=== PATIENT | female | born 1965 | race Caucasian/White ===

== ENCOUNTER → 2024-02-14 07:22 | Outpatient (REF) | payer BC, SELFPAY | LOC: DHCBS MAIN 07:22 | PROVIDERS: ATTENDING PHYSICIAN Nuclear Medicine Nuclear Cardiology; FAMILY PHYSICIAN Family Medicine | DX: I48.0 Paroxysmal atrial fibrillation (principal); I50.32 Chronic diastolic (congestive) heart failure; I42.9 Cardiomyopathy, unspecified | CPT/HCPCS: 93306 ==

== ENCOUNTER 2024-04-09 19:31 | Inpatient (IN) | payer BC, SELFPAY ==
[2024-04-09] VITALS (10 sets, daily range): BP systolic 118–140; BP diastolic 64–96; BMI 29.1; BMI 28.5
--- NOTE | 2024-04-09 13:01 | ED.GENMED ---
History of Present Illness
General
Chief Complaint: Breathing Problem
Time Seen by Provider: 04/09/24 13:01
Travel History
Have you had any contact with someone who has COVID-19?: No
Do you have any symptoms of coronavirus? Fever > 100 degrees, chills, cough, shortness of breath, sore throat, loss of taste or smell, muscle aches, or headache?: No
History of Present Illness
History of Present Illness:
HPI: Patient presents with shortness of breath of the last couple of weeks. She thinks she was been suffering from allergies recently as well. She went to PMD who noticed room air sats in the 80% and sent her here for further evaluation. The
current nurse who is seeing her at bedside was told from triage that her sats were in the '80%'s' however this is not clearly documented. She was as low as 92% just prior to administration of oxygen. She has no chest pain. There is been no fevers.
EXAM:
GENERAL: Well appearing in no distress
HEENT: Moist oral mucosa
CARDIOVASCULAR: No murmurs, normal heart rate, regular rhythm, No chest wall tenderness
PULMONARY: The patient does have an increased work of breathing associated with wheeze and rhonchi, there is some mild conversational dyspnea
ABDOMEN: Soft with no peritoneal signs, no tenderness
NEUROLOGIC: Excellent strength all extremities, no coordination deficits
PSYCHIATRIC: Appropriate mental status, normal insight and judgement
EXTREMITIES: Nontender, no edema, moves all extremities equally
SKIN: No rash, no lesions
TIME OF INITIAL ENCOUNTER: 1:20 PM
NUMBER AND COMPLEXITY OF PROBLEMS ADDRESSED AT THE ENCOUNTER
� Chronic conditions affecting care: COPD, former smoker, A-fib, diabetes, history of alcohol abuse, anxiety/depression
� Acute Exacerbation and/or Progression of Chronic Illness: This is an acute problem
� Differential Diagnosis includes: COPD exacerbation, doubt heart failure, pneumonia, reactive airway disease related to viral syndrome or allergens, bronchitis
AMOUNT AND/OR COMPLEXITY OF DATA TO BE REVIEWED AND ANALYZED
� I performed an independent evaluation of and my interpretation is:
EKG: Sinus, nonspecific ST abnormality, PVCs
CT:
X-rays: Chest x-ray clear
Laboratory Studies: White count 13.4, chemistries, troponin normal, BNP borderline at 844
Other:
� Review of other/old records: I reviewed records, the patient has had visits here related to atrial fibrillation in the past and was admitted for COPD exacerbation approximately 16 months ago, it was documented the past that she
did have a mildly reduced ejection fraction in the past.
� Clinical information was obtained by an independent historian: I spoke to family member at bedside who indicates that she had a similar episode just over a year ago.
� Prescriptions/Medications Considered but not given:
� Further testing considered but not performed:
RISK OF COMPLICATIONS AND/OR MORBIDITY OR MORTALITY OF PATIENT MANAGEMENT
� Social determinants of health affecting care:
� Discussion with other providers: Hospitalist for admission at 3 PM
� Escalation of care including admission/observation vs risk of discharge considered: Allergens/pollen may be a precipitating factor�I suggest that she also follows up with an hand binder stripper at some point. We have placed her on nebs
and steroids with some improvement. The wheeze has improved however decreased breath sounds persist. Suspect acute exacerbation of COPD with borderline hypoxia�planning admission to the hospital
Past History
Past History
ED Past Medical History: COPD, GERD, HTN, Hypercholesterolemia, NIDDM, Psychiatric (Anxiety, Depression) and Other (Sciatica)
ED Past Surgical History: Bowel resection, , Orthopedic (Left and right hip replacements) and Other (Deviated septum)
Social History
Tobacco: Smoker
Alcohol: Occasional
Personal:
Living: with family
Family History
Family History: Negative Early CAD
Phy Exam
Physical Exam
Physical Exam:
See HPI
Scores
Heart Failure Risk
Heart Failure Risk Score: Not Applicable
Course
Orders/Labs/Results
Orders:
Orders
04/09/24 12:33
Electrocardiogram (*1) Urgent
Reason for Study: Shortness of Breath
EKG- Treatment ONCE
CR Chest - 2 Views Urgent
Comment:
Reason For Exam: cough
04/09/24 13:25
Add On- LAB Urgent
Tests Added?: bnp
Ipratropium/Albuterol Sulfate [Duoneb] 3 ml INH R NOW ONE
04/09/24 13:26
Complete Blood Count/With Diff Urgent
Comprehensive Metabolic Panel Urgent
NT-proBNP Urgent
Troponin I Urgent
Ipratropium/Albuterol Sulfate [Duoneb] 3 ml INH R NOW ONE
MethylPREDNISolone PF [Solu-Medrol Pf] 125 mg IV NOW STA
Abnormal Lab Results
04/09/24
13:26
WBC 13.4 H 10^3/uL
(4.8-10.8)
MCH 31.8 H pg
(27.0-31.0)
Plt Count 110 L 10^3/uL
(130-400)
MPV 11.9 H fL
(7.4-10.4)
Abs Immat Gran (auto) 0.1 H 10^3/uL
(0-0.05)
Absolute Neuts (auto) 11.1 H 10^3/uL
(1.4-6.5)
Absolute Monos (auto) 0.7 H 10^3/uL
(0.1-0.6)
Immature Gran % 0.8 H %
(0-0.5)
Neutrophils % 83.3 H %
(42.2-75.2)
Lymphocytes % 9.3 L %
(20.5-51.1)
Creatinine 0.5 L mg/dL
(0.6-1.0)
Glucose 194 H mg/dl
(70-99)
04/09/24 13:26
04/09/24 13:26
Vital Signs
Initial and Last Documented VS:
Initial Vital Signs
Temp Pulse Resp BP Pulse Ox
97.7 F 107 22 134/86 96
04/09/24 12:29 04/09/24 12:29 04/09/24 12:29 04/09/24 12:29 04/09/24 12:29
Last Documented Vital Signs
Temp Pulse Resp BP Pulse Ox
97.7 F 97 25 125/96 96
04/09/24 12:29 04/09/24 13:15 04/09/24 13:15 04/09/24 13:06 04/09/24 13:27
*Critical Care Note
Total Time (30-74mins, 75-104mins- exclusive of procedures): Not Applicable
ED Attending Note
-
Portions of this chart may have been created with voice recognition software.� Occasional wrong word or��sound alike� substitutions may have occurred due to the inherent limitations of voice recognition software.
Discharge Plan
Departure
Patient Disposition: Home (Routine Discharge)
Date of Disposition: 04/09/24
Time of Disposition: 15:02
Patient with high blood pressure during this ER visit?: Yes
Discharge Problem:
Acute exacerbation of chronic obstructive pulmonary disease
Prescriptions:
No Action
roflumilast [Daliresp] 500 MCG tablet
500 mcg PO DAILY Qty: 0 0RF
sertraline 100 MG tablet
100 mg PO DAILY
metformin 500 MG tablet
1,000 mg PO BID
diltiazem HCl 240 mg Capsule,Extended Release 24hr
240 mg PO BID Qty: 60 0RF
Eliquis 5 mg Tablet
5 mg PO BID Qty: 60 0RF
Anoro Ellipta 62.5-25 mcg/actuation Blister With Device
1 inh INHALATION R DAILY
Patient Comments:
04/09/2024, per pt., she is finishing up her Anoro before starting her Trelegy.
methimazole 5 mg Tablet
2.5 mg PO DAILY
atorvastatin 40 mg Tablet
40 mg PO DAILY
nicotine 14 mg/24 hr Patch 24 Hour
1 patch TRANSDERMAL DAILY
Patient Comments:
04/09/2024, pt. just started using these patches today; pt. has patch on her left arm.
levalbuterol tartrate 45 mcg/actuation Hfa Aerosol Inhaler
2 puff INHALATION R Q4HPRN PRN (Reason: sob)
pregabalin 150 mg Capsule
150 mg PO BID
Trelegy Ellipta 100-62.5-25 mcg Blister With Device
1 inh INHALATION R DAILYPRN PRN (Reason: sob)
Patient Comments:
04/09/2024, per pt., she received samples of this med. from her PCP and she took some roughly a week ago; pt. is finishing her Anoro before starting this med. routinely.
levalbuterol HCl 0.63 mg/3 mL solution for nebulization
0.63 mg inhalation R TIDPRN PRN (Reason: WHEEZING/SOB)
Referrals:
Hemant David, [Family Provider] -
Interventions
Interventions:
*Risk Screen - Suicide Last Done: 04/09/24 13:11
*General Assessment Last Done: 04/09/24 13:11
*Neglect/Abuse Screening Last Done: 04/09/24 13:11
ED- Fall Risk Assessment Last Done: 04/09/24 13:11
*ED COVID-19 Vaccine History Last Done: 04/09/24 12:29
ED- Cardiac Assessment Last Done: 04/09/24 13:11
ED- Pulmonary Assessment Last Done: 04/09/24 13:27
Discharge Date and Time
Print Language: SUDANESE
[2024-04-09] MEDS: DUONEB 3 ML INH ×2 (13:31)
[2024-04-09] MEDS: SOLU-MEDROL PF 125 MG IV (13:31)
[2024-04-09 13:36] LABS: % Basophils 0.3 % (0-2); % Eosinophils 0.9 % (0-6); % Immature Granulocytes 0.8 % (0-0.5); % Lymphocytes 9.3 % (20.5-51.1); % Monocytes 5.4 % (1.7-9.3); % Neutrophils 83.3 % (42.2-75.2); Absolute Eosinophils 0.1 10^3/uL (0-0.7); Absolute Immature Granulocytes 0.1 10^3/uL (0-0.05); Absolute Lymphocytes 1.2 10^3/uL (1.2-3.4); Absolute Monocytes 0.7 10^3/uL (0.1-0.6); Absolute Neutrophils 11.1 10^3/uL (1.4-6.5); Hematocrit 39.8 % (37.0-47.0); Hemoglobin 13.9 g/dL (12.0-16.0); Mean Corp Hgb Conc. 34.9 g/dL (33.0-37.0); Mean Corpuscular Hgb 31.8 pg (27.0-31.0); Mean Corpuscular Volume 91.1 fL (81.0-99.0); Mean Platelet Volume 11.9 fL (7.4-10.4); Nucleated Red Blood Cells % 0 %; Platelet Count 110 10^3/uL (130-400); Red Blood Cell Count 4.37 10^6/uL (4.20-5.40); Red Cell Dist. Width 12.6 % (11.5-14.5); White Blood Cell Count 13.4 10^3/uL (4.8-10.8)
[2024-04-09 13:59] LABS: ALT (SGPT) 10 U/L (0-35); AST (SGOT) 14 U/L (14-36); Albumin 4.2 g/dl (3.5-5.0); Alkaline Phosphatase 110 U/L (38-126); Blood Urea Nitrogen 10 mg/dl (7-17); Calcium 9.1 mg/dl (8.4-10.2); Carbon Dioxide 28 mmol/L (22-30); Chloride 98 mmol/L (98-107); Estimated Creatinine Clearance 100 ml/min; Glucose 194 mg/dl (70-99); Potassium 3.6 mmol/L (3.5-5.1); Sodium 136 mmol/L (135-145); Total Protein 7.3 g/dl (6.3-8.2); eGFR > 60.00
[2024-04-09 14:10] LABS: NT-proBNP 844 pg/ml; Troponin I < 0.012 ng/ml
--- NOTE | 2024-04-09 15:09 | HPS.HSE ---
Family Physician
-
Family Physician: Hemant David
Chief Complaint
-
SOB
History of Present Illness
58F hx atrial fibrillation s/p ablation HTN HLD NIDDM COPD Hyperthyroidism HFmrEF here for progressive sob for past weeks with associate wheezing. Referred by primary for evaluation ED due to desaturation 80s room air. Denies fever chills nausea
vomiting diarrhea constipation. No acute abn's noted on CXR. Saturating well on 2L afebrile bp stable. Labs relatively unremarkable, mild leukocytosis noted suspected stress reactive.
Medical History
Past Medical History
Past Medical History: Reports Other (as above)
Past Surgical History: Reports Other (as above)
Social History
Tobacco: Other (attempting to quit on nicotine patches)
Alcohol: Occasional
Drug: None
Personal:
Living: With Family
Family History
Family History: Not pertinent (reviewed)
Allergies / Home Medications
Allergies reflects when Allergies were last updated in [facility].
Home Medications with original date entered in [facility]
Allergy/Medication List:
Allergies
Allergy/AdvReac Type Severity Reaction Status Date / Time
No Known Allergies Allergy Verified 04/09/24 12:32
Home Medications
sertraline 100 mg tablet 100 mg PO DAILY Depression 01/30/18
metformin 500 mg tablet 1,000 mg PO BID Diabetes 12/30/21
umeclidinium 62.5 mcg-vilanterol 25 mcg/actuation powdr for inhalation (Anoro Ellipta) 1 inh inhalation R DAILY Lung/Breathing Issues 02/24/23
methimazole 5 mg tablet 2.5 mg PO DAILY hyperthyroidism 03/27/23
apixaban 5 mg tablet (Eliquis) 5 mg PO BID Blood Clot Prevention/Tx 04/09/24
atorvastatin 40 mg tablet 40 mg PO DAILY High Cholesterol 04/09/24
diltiazem HCl 240 mg capsule,extended release 24 hr 240 mg PO BID Blood Pressure 04/09/24
fluticasone fur. 100 mcg-umeclid 62.5 mcg-vilant 25 mcg inhalat.powder (Trelegy Ellipta) 1 inh inhalation R DAILYPRN PRN shortness of breath 04/09/24
levalbuterol HCl 0.63 mg/3 mL solution for nebulization 0.63 mg inhalation R TIDPRN PRN wheezing/SOB 04/09/24
levalbuterol tartrate 45 mcg/actuation aerosol inhaler 2 puff inhalation R Q4HPRN PRN shortness of breath 04/09/24
nicotine 14 mg/24 hr daily transdermal patch 1 patch transdermal DAILY smoking cessation 04/09/24
pregabalin 150 mg capsule 150 mg PO BID Pain 04/09/24
roflumilast 500 mcg tablet (Daliresp) 500 mcg PO DAILY Lung/Breathing Issues 04/09/24
Review of Systems
-
A 12 point ROS was completed and negative except as noted: Yes
Constitutional: Reports Sleep Disturbance (as below)
Physical Exam
Vital Signs
Vital Signs
Temp Pulse Resp BP Pulse Ox
97.7 F 97 25 125/96 96
04/09/24 12:29 04/09/24 13:15 04/09/24 13:15 04/09/24 13:06 04/09/24 13:27
Physical Exam
General: Other (as below)
Laboratory Results
-
04/09/24 13:26
04/09/24 13:26
Laboratory Results
Total Bilirubin 1.0 mg/dl (0.2-1.3) 04/09/24 13:26
AST 14 U/L (14-36) 04/09/24 13:26
ALT 10 U/L (0-35) 04/09/24 13:26
Alkaline Phosphatase 110 U/L (38-126) 04/09/24 13:26
Troponin I < 0.012 ng/ml 04/09/24 13:26
Impression/Plan
-
ROS
General: Denies fever chills night sweats unexpected weight loss
Neuro: Denies seizure shaking loss of consciousness dizziness vertigo
Psych: denies depression hallucinations confusion manic episodes
Endocrine: Denies polyuria polydipsia polyphagia heat/cold intolerance
HEENT: Denies blindness visual disturbances epistaxis
Pulmonary: reports sob dyspnea on exertion wheezing
Cardiovascular: denies chest pain palpitations leg swelling
Hematology: denies signs symptoms of anemia easy bruising/bleeding
Gastrointestinal: denies nausea vomiting diarrhea constipation hematemesis hematochezia melena
Genito-Urinary: denies retention incontinence dysuria
Musculoskeletal: denies joint pain weakness
Dermatology: denies rash laceration bruising
Physical Exam
General: No pallor, cyanosis, or jaundice.
HEENT: Throat clear. PERRLA Normocephalic atraumatic
NECK: Supple. No JVD Carotid Bruits
RESPIRATORY: Diffuse Expiratory wheeze
CVS: S1, S2 normal. RRR. No murmur, rub or gallop.
ABDOMEN: Soft, non-tender. No distension. BS+/normal.
EXTREMITIES: No peripheral cyanosis or edema.
PLUMBER MAINTENANCE: AOx3. No focal deficits.
IMPRESSION:
58F hx atrial fibrillation s/p ablation HTN HLD NIDDM COPD Hyperthyroidism HFmrEF here for progressive sob for past weeks with associate wheezing. Referred by primary for evaluation ED due to desaturation 80s room air. Denies fever chills nausea
vomiting diarrhea constipation. No acute abn's noted on CXR. Saturating well on 2L afebrile bp stable. Labs relatively unremarkable, mild leukocytosis noted suspect stress reactive.
PLAN:
#COPD exacerbation
Tele Admit
steroids Bronchodilators
Wean O2 supplementation as tolerated
PT/OT eval
#Hx atrial fibrillation s/p ablation
#HTN
cont home Eliquis
cont home Cardizem with Holding parameters
#HLD
cont stating
#NIDDM
Medium Dose Sliding scale
Follow up A1c
cont home Metformin
Carb controlled Diet
#Neuropathy
cont home Pregabalin
#Anxiety/Depression
cont home Sertraline
DVT ppx Eliquis
GI ppx Protonix
Meds reconciled and resumed as appropriate
Full Code
I spent a total of 80 minutes with the patient or on the floor. More than 50% of this time involved counseling and coordination of care.
[2024-04-09 21:13] LABS: Glucose - Point of Care 482 mg/dl (70-99)
[2024-04-09] MEDS: CARDIZEM CD 240 MG PO (21:14)
[2024-04-09] MEDS: LYRICA 150 MG PO (21:14)
[2024-04-09] MEDS: ELIQUIS 5 MG PO (21:14)
[2024-04-09] MEDS: XOPENEX 0.63 MG INHALANT SOLUTION INH (21:26)
--- NOTE | 2024-04-09 21:32 | PTCARENOTE ---
Received pt from ED via stretcher. AAOx3, VSS, no complaints of pain at this time. Oriented pt to room, call brooke within reach.
[2024-04-09 21:50] LABS: Glucose 484 mg/dl (70-99)
[2024-04-09] MEDS: GLUCOPHAGE 1000 MG PO (22:26)
[2024-04-09] MEDS: ROBITUSSIN AC 5 ML PO (22:26)
[2024-04-09] MEDS: NOVOLOG FLEXPEN 10 UNITS SC (23:17)
[2024-04-10] VITALS (8 sets, daily range): BP systolic 101–146; BP diastolic 54–78; PULSE 83; O2SAT 92; BMI 28.2
[2024-04-10 01:25] LABS: Glucose - Point of Care 451 mg/dl (70-99)
[2024-04-10 01:59] LABS: Glucose 447 mg/dl (70-99)
[2024-04-10] MEDS: NOVOLOG FLEXPEN 12 UNITS SC (02:13)
[2024-04-10 03:22] LABS: COVID-19 Antigen Negative (Negative)
[2024-04-10 04:45] LABS: Glucose - Point of Care 324 mg/dl (70-99)
[2024-04-10 07:17] LABS: Glucose - Point of Care 309 mg/dl (70-99)
--- NOTE | 2024-04-10 07:31 | W.PN.HOSP.TC ---
Today's Communication/Plan
-
steroid taper
bronchodilators
wean O2 supplementation as tolerated, home oxygen assessment in AM
Glycemic Control
Cont home methimazole
Assessment / Plan
Assessment / Plan
Physical Exam
General: No pallor, cyanosis, or jaundice.
HEENT: Throat clear. PERRLA Normocephalic atraumatic
NECK: Supple. No JVD Carotid Bruits
RESPIRATORY: clear to auscultation remains on oxygen supplementation
CVS: S1, S2 normal. RRR. No murmur, rub or gallop.
ABDOMEN: Soft, non-tender. No distension. BS+/normal.
EXTREMITIES: No peripheral cyanosis or edema.
ANALYTICAL RESEARCH PROGRAM MANAGER: AOx3. No focal deficits.
IMPRESSION:
58F hx atrial fibrillation s/p ablation HTN HLD NIDDM COPD Hyperthyroidism HFmrEF here for progressive sob for past weeks with associate wheezing. Referred by primary for evaluation ED due to desaturation 80s room air. Denies fever chills nausea
vomiting diarrhea constipation. No acute abn's noted on CXR. Saturating well on 2L afebrile bp stable. Labs relatively unremarkable, mild leukocytosis noted suspect stress reactive.
PLAN:
#COPD exacerbation
steroids Bronchodilators
Wean O2 supplementation as tolerated
PT/OT eval appreciated likely no skilled needs on discharge
Home O2 assessment in AM
#Hx atrial fibrillation s/p ablation
#HTN
cont home Eliquis
cont home Cardizem with Holding parameters
#HLD
cont statin
#NIDDM
Medium Dose Sliding scale
A1c appreciated 8.9
cont home Metformin
Carb controlled Diet
DM BLIND CLEANER consult appreciated Lantus 20U Novolog 10U AC
medium dose sliding scale
#Neuropathy
cont home Pregabalin
#Anxiety/Depression
cont home Sertraline
#Hyperthyroidism
cont home methimazole
T4 mild elevation noted
TSH suppressed
appears relatively asymptomatic for hyperthyroidism at this time
outpatient follow up with Endocrinology recommended
DVT ppx Eliquis
GI ppx Protonix
Meds reconciled and resumed as appropriate
Full Code
Discussed with patient and her Thomas.
I spent a total of 59 minutes with the patient or on the floor. More than 50% of this time involved counseling and coordination of care.
Anticipated Discharge: 24 - 48 hours
Subjective/Interval History
-
Date of Service: April 10, 2024
Reports improvement in symptoms. Cough persists. Overall feels well though remains oxygen dependent. Patient's Thomas present during evaluation.
Objective Data
-
Labs:
Laboratory Results
04/09/24 04/10/24 04/10/24
21:25 01:33 07:00
WBC Pending
Hgb Pending
Hct Pending
Plt Count Pending
Sodium Pending
Potassium Pending
Chloride Pending
Carbon Dioxide Pending
BUN Pending
Creatinine Pending
Glucose 484 H* 447 H Pending
Calcium Pending
Vital Signs:
Vital Signs
Temp Pulse Resp BP Pulse Ox
97.5 F 82 18 131/74 92
04/10/24 03:21 04/10/24 03:21 04/10/24 03:21 04/10/24 03:21 04/10/24 03:21
I&O
04/09/24 04/10/24 04/11/24
06:59 06:59 06:59
Intake Total 480 / 480
Balance 480 / 480
[2024-04-10] MEDS: SPIRIVA RESPIMAT 2.5 MCG 2 PUFF INH (07:46)
[2024-04-10] MEDS: STRIVERDI RESPIMAT 2 PUFF INH (07:47)
[2024-04-10] MEDS: XOPENEX 0.63 MG INHALANT SOLUTION 0.630000000000000004 MG INH ×3 (07:47→20:08)
[2024-04-10 07:59] LABS: Hematocrit 39.1 % (37.0-47.0); Hemoglobin 13.4 g/dL (12.0-16.0); Mean Corp Hgb Conc. 34.3 g/dL (33.0-37.0); Mean Corpuscular Hgb 31.5 pg (27.0-31.0); Mean Platelet Volume 12.4 fL (7.4-10.4); Platelet Count 103 10^3/uL (130-400); Red Blood Cell Count 4.25 10^6/uL (4.20-5.40); Red Cell Dist. Width 12.6 % (11.5-14.5); White Blood Cell Count 8.9 10^3/uL (4.8-10.8)
[2024-04-10] MEDS: NICODERM TRANSDERMAL 14 MG TRANSDERM (08:09)
[2024-04-10] MEDS: NOVOLOG FLEXPEN-MODERATE RESISTANCE 7 UNITS SC ×2 (08:09→12:08)
[2024-04-10] MEDS: PROTONIX 40 MG PO (08:10)
[2024-04-10] MEDS: TAPAZOLE 2.5 MG PO (08:10)
[2024-04-10] MEDS: ZOLOFT 100 MG PO (08:10)
[2024-04-10] MEDS: ELIQUIS 5 MG PO ×2 (08:10→20:57)
[2024-04-10] MEDS: LYRICA 150 MG PO ×2 (08:10→20:57)
[2024-04-10] MEDS: LIPITOR 40 MG PO (08:10)
[2024-04-10] MEDS: GLUCOPHAGE 1000 MG PO ×2 (08:10→17:09)
[2024-04-10] MEDS: DALIRESP 500 MCG PO (08:10)
[2024-04-10] MEDS: CARDIZEM CD 240 MG PO ×2 (08:11→20:57)
[2024-04-10] MEDS: DECADRON 4 MG IV ×2 (08:11→21:36)
[2024-04-10 08:27] LABS: Blood Urea Nitrogen 25 mg/dl (7-17); Calcium 9.4 mg/dl (8.4-10.2); Carbon Dioxide 25 mmol/L (22-30); Chloride 99 mmol/L (98-107); Estimated Creatinine Clearance 99 ml/min; Glucose 308 mg/dl (70-99); Magnesium 1.8 mg/dl (1.6-2.3); Phosphorus 4.1 mg/dl (2.5-4.5); Potassium 4.7 mmol/L (3.5-5.1); Sodium 138 mmol/L (135-145); eGFR > 60.00
[2024-04-10] MEDS: ROBITUSSIN AC 5 ML PO ×4 (08:27→21:08)
[2024-04-10 08:51] LABS: TSH Reflex To Free T4 < 0.02 uIU/ml (0.47-4.68)
[2024-04-10 09:20] LABS: Free T4 2.41 ng/dl (0.78-2.19)
[2024-04-10 09:22] LABS: Glycohemoglobin (HgbA1c) 8.9 % (4.0-5.6)
--- NOTE | 2024-04-10 09:51 | PTOTSP ---
pt currently requires supervision to no assistance to complete simple ADLs, functional transfers, ambulation. pt currently requires 2LO2; does not wear O2 at baseline. will defer to PT, as pt is capable of completing functional tasks without
intervention. no acute OT needs identified at this time, will sign off.
--- NOTE | 2024-04-10 11:02 | CM ---
CM met with pt bedside
Pt resides in a multi-story townhouse with 3STE
Full flight to second floor full bathroom and bed
Pt notes independence without any ADs
Only DME is a working nebulizer- no longer has ADs in the home
Pt is not on home oxygen at baseline
Has hx with [facility]
PCP- Hemant David
Rx- [facility]
PT/OT following and no needs recommendations
Pt currently on 2L- CM will follow for potential home O2 needs
Discharge Disposition- home, follow for oxygen needs
[2024-04-10 11:54] LABS: Glucose - Point of Care 311 mg/dl (70-99)
[2024-04-10] MEDS: NOVOLOG FLEXPEN 5 UNITS SC (12:08)
--- NOTE | 2024-04-10 13:01 | PN.DE.MGMTRT ---
Insulin Management
- -
04/09/2024 Diabetes Management Consult
Patient admitted 04/09 with SOB, exacerbation COPD. PMH includes COPD, afib/ablation, type 2 diabetes, alcohol abuse, anxiety depression, HTN, GERD, HCL. A1C on admission 8.9%, cr .6, eGFR >60.
Patient is awake alert, and oriented, able to discuss diabetes management. States she has a glucose monitor at home working. Encouraged to consider CGM. She states she has seen Endo in [place] but has not been there is awhile. Encouraged to
call for follow up appt. NASIR. at bedside and supportive.
Patient currently receiving metformin 1000 BID, with lantus 15 units @ hs with 5 units novolog AC with moderate corrective insulin. Glucose as high as 482 @ hs, 324 this AM. Will increase AC novolog to 10 units and HS lantus to 20 units @ hs.
I spoke with Yamilka, patients nurse, she will begin to review insulin pen with her at next dose.
Will follow.
Diabetes History
- -
Type of Diabetes: 2
Pre-Admission Diabetes Regimen
04/09/24 04/10/24
13:26 07:00
Creatinine 0.5 L 0.6
Lab Results
Hemoglobin A1c 8.9 % (4.0-5.6) H 04/10/24 07:00
Insulin Pump Settings
IP Diabetes Regimen
04/09/24 04/09/24 04/09/24
13:26 21:07 21:25
Glucose 194 H 484 H*
POC Glucose 482 H*
04/10/24 04/10/24 04/10/24
01:23 01:33 04:44
Glucose 447 H
POC Glucose 451 H* 324 H
04/10/24 04/10/24 04/10/24
07:00 07:16 11:52
Glucose 308 H
POC Glucose 309 H 311 H
Patient Education
[2024-04-10 16:35] LABS: Glucose - Point of Care 368 mg/dl (70-99)
[2024-04-10] MEDS: NOVOLOG FLEXPEN-MODERATE RESISTANCE 9 UNITS SC (17:10)
[2024-04-10] MEDS: NOVOLOG FLEXPEN 10 UNITS SC (17:10)
[2024-04-10 21:25] LABS: Glucose - Point of Care 271 mg/dl (70-99)
[2024-04-10] MEDS: LANTUS 0.200000000000000011 UNITS SC (21:40)
--- NOTE | 2024-04-11 03:05 | DOWNTIME ---
There was a [employer] Radiation Protection Engineer Downtime on 03/14/2024 from 0100 to 03/14/2024 at 0439. Downtime documentation of patient's care, including medication administrations, has been reconciled in the electronic record per guidelines. Refer to the
patient's paper chart under the miscellaneous tab to see printed paper medication records and downtime forms.
[2024-04-11] MEDS: ROBITUSSIN AC 5 ML PO ×4 (03:11→20:34)
[2024-04-11 03:51] VITALS: BP 154/78
[2024-04-11 05:37] LABS: Hematocrit 37.7 % (37.0-47.0); Hemoglobin 12.8 g/dL (12.0-16.0); Mean Corpuscular Volume 91.3 fL (81.0-99.0); Mean Platelet Volume 12.2 fL (7.4-10.4); Platelet Count 129 10^3/uL (130-400); Red Blood Cell Count 4.13 10^6/uL (4.20-5.40); Red Cell Dist. Width 12.5 % (11.5-14.5); White Blood Cell Count 12.4 10^3/uL (4.8-10.8)
[2024-04-11 06:00] VITALS: BMI 28.6
[2024-04-11 06:01] LABS: Blood Urea Nitrogen 37 mg/dl (7-17); Calcium 9.7 mg/dl (8.4-10.2); Carbon Dioxide 29 mmol/L (22-30); Chloride 96 mmol/L (98-107); Estimated Creatinine Clearance 74 ml/min; Glucose 340 mg/dl (70-99); Magnesium 1.7 mg/dl (1.6-2.3); Phosphorus 3.6 mg/dl (2.5-4.5); Potassium 5.3 mmol/L (3.5-5.1); Sodium 135 mmol/L (135-145); eGFR > 60.00
--- NOTE | 2024-04-11 07:07 | W.PN.HOSP.TC ---
Today's Communication/Plan
-
steroid taper
bronchodilators
wean O2 supplementation as tolerated
Glycemic Control
Pulm Eval
Assessment / Plan
Assessment / Plan
Physical Exam
General: No pallor, cyanosis, or jaundice.
HEENT: Throat clear. PERRLA Normocephalic atraumatic
NECK: Supple. No JVD Carotid Bruits
RESPIRATORY: relatively clear to auscultation mild/faint wheeze noted remains on oxygen supplementation
CVS: S1, S2 normal. RRR. No murmur, rub or gallop.
ABDOMEN: Soft, non-tender. No distension. BS+/normal.
EXTREMITIES: No peripheral cyanosis or edema.
WATER METER MECHANIC: AOx3. No focal deficits.
IMPRESSION:
58F hx atrial fibrillation s/p ablation HTN HLD NIDDM COPD Hyperthyroidism HFmrEF here for progressive sob for past weeks with associate wheezing. Referred by primary for evaluation ED due to desaturation 80s room air. Denies fever chills nausea
vomiting diarrhea constipation. No acute abn's noted on CXR. Saturating well on 2L afebrile bp stable. Labs relatively unremarkable, mild leukocytosis noted suspect stress reactive.
PLAN:
#COPD exacerbation
steroids Bronchodilators
Wean O2 supplementation as tolerated
PT/OT eval appreciated likely no skilled needs on discharge
Pulm eval appreciated, home oxygen assessment prior to discharge, outpt follow up recommended.
#Hx atrial fibrillation s/p ablation
#HTN
cont home Eliquis
cont home Cardizem with Holding parameters
#HLD
cont statin
#NIDDM
Medium Dose Sliding scale
A1c appreciated 8.9
cont home Metformin
Carb controlled Diet
DM TOW TRUCK DRIVER consult appreciated Lantus 25U Novolog 10U AC
medium dose sliding scale
#Neuropathy
cont home Pregabalin
#Anxiety/Depression
cont home Sertraline
#Hyperthyroidism
cont home methimazole
T4 mild elevation noted
TSH suppressed
appears relatively asymptomatic for hyperthyroidism at this time
outpatient follow up with Endocrinology recommended
DVT ppx Eliquis
GI ppx Protonix
Full Code
I spent a total of 57 minutes with the patient or on the floor. More than 50% of this time involved counseling and coordination of care.
Anticipated Discharge: 24 - 48 hours
Subjective/Interval History
-
Date of Service: April 11, 2024
Seen and examined at bedside in no acute distress sitting up comfortably in bed. Notes some improvement. Remains oxygen dependent. Significant exertional dyspnea. Cough persists.
Objective Data
-
Labs:
Laboratory Results
04/11/24
05:07
WBC 12.4 H
Hgb 12.8
Hct 37.7
Plt Count 129 L D
Sodium 135
Potassium 5.3 H
Chloride 96 L
Carbon Dioxide 29
BUN 37 H
Creatinine 0.8
Glucose 340 H
Calcium 9.7
Vital Signs:
Vital Signs
Temp Pulse Resp BP Pulse Ox
98.2 F 97 18 154/78 94
04/11/24 03:51 04/11/24 03:51 04/11/24 03:51 04/11/24 03:51 04/11/24 03:51
I&O
04/10/24 04/11/24 04/12/24
06:59 06:59 06:59
Intake Total 480 / 480 1020 / 1020
Balance 480 / 480 1020 / 1020
[2024-04-11 07:48] LABS: Glucose - Point of Care 319 mg/dl (70-99)
[2024-04-11] MEDS: SPIRIVA RESPIMAT 2.5 MCG 2 PUFF INH (08:17)
[2024-04-11] MEDS: XOPENEX 0.63 MG INHALANT SOLUTION 0.630000000000000004 MG INH ×3 (08:17→19:32)
[2024-04-11] MEDS: STRIVERDI RESPIMAT 2 PUFF INH (08:17)
[2024-04-11 08:18] VITALS: BP 157/85
[2024-04-11] MEDS: CARDIZEM CD 240 MG PO ×2 (08:21→20:33)
[2024-04-11] MEDS: DELTASONE 40 MG PO (08:21)
[2024-04-11] MEDS: NICODERM TRANSDERMAL 14 MG TRANSDERM (08:22)
[2024-04-11] MEDS: LYRICA 150 MG PO ×2 (08:23→20:34)
[2024-04-11] MEDS: ELIQUIS 5 MG PO ×2 (08:23→20:34)
[2024-04-11] MEDS: GLUCOPHAGE 1000 MG PO ×2 (08:23→17:43)
[2024-04-11] MEDS: LIPITOR 40 MG PO (08:23)
[2024-04-11] MEDS: TAPAZOLE 2.5 MG PO (08:24)
[2024-04-11] MEDS: DALIRESP 500 MCG PO (08:24)
[2024-04-11] MEDS: ZOLOFT 100 MG PO (08:24)
[2024-04-11] MEDS: PROTONIX 40 MG PO (08:24)
--- NOTE | 2024-04-11 08:51 | PN.DE.MGMTRT ---
Insulin Management
- -
04/11/2024 Diabetes Management Consult Follow up
Patient admitted 04/09 with SOB, exacerbation COPD. PMH includes COPD, afib/ablation, type 2 diabetes, alcohol abuse, anxiety depression, HTN, GERD, HCL. A1C on admission 8.9%, cr .6, eGFR >60.
Patient is awake alert, and oriented, able to discuss diabetes management. Yesterday discussed monitor and follow up. She has a glucose monitor at home working. Encouraged to consider CGM. She has seen Endo in [place] but has not been there is
awhile, encouraged to call for follow up appt. NASIR. Provided information for outpatient diabetes classes, patient stated she did not want the information.
Dexamethasone Q 12 hours has been stopped, Prednisone 40 mg daily started.
Patient currently receiving metformin 1000 BID, with lantus 20 units @ hs with 10 units novolog AC with moderate corrective insulin. Glucose improved 482 down to range 271 to 368. Received increased dose of lantus 20 units last evening, fasting
glucose this AM 319. Will increase AC novolog to 15 units and HS lantus to 25 units @ hs.
I provided step by step instruction sheet for insulin pen prep and self administration. Reviewed steps with patient, she did excellent with demonstration.
I spoke with patients nurse, she will reinforce insulin pen use with each administration. Home pen needles given to nurse.
Will follow.
Diabetes History
- -
Type of Diabetes: 2
Pre-Admission Diabetes Regimen
04/11/24
05:07
Creatinine 0.8
Lab Results
Hemoglobin A1c 8.9 % (4.0-5.6) H 04/10/24 07:00
Insulin Pump Settings
IP Diabetes Regimen
04/10/24 04/10/24 04/10/24
11:52 16:34 21:22
Glucose
POC Glucose 311 H 368 H 271 H
04/11/24 04/11/24
05:07 07:46
Glucose 340 H
POC Glucose 319 H
Meal type: Breakfast
Amount consumed: 100%
Patient Education
[2024-04-11] MEDS: NOVOLOG FLEXPEN-MODERATE RESISTANCE 7 UNITS SC (09:31)
[2024-04-11] MEDS: NOVOLOG FLEXPEN 15 UNITS SC (09:31)
[2024-04-11] MEDS: NOVOLOG FLEXPEN SC ×2 (09:32→13:06)
--- NOTE | 2024-04-11 10:46 | RESPNOTE ---
Home 02 attempted to be completed with patient. Pt having increased SOB. MD agree to 'hold test closer to discharge'.
[2024-04-11 11:57] VITALS: BP 146/81
[2024-04-11 12:33] LABS: Glucose - Point of Care 146 mg/dl (70-99)
--- NOTE | 2024-04-11 12:43 | CON.PUL ---
Consultation
Consultation Request
Date/Time Consultation Requested: 04/11/24
Date/Time Consultation Performed: 04/11/24
Performing Provider: Amos
Reason for Consultation: SOB
Medical History
-
History of Present Illness:
59 year old F with history of atrial fibrillation s/p ablation, HTN, HLD, NIDDM, COPD, Hyperthyroidism, HFmrEF presenting to ER for progressive SOB for the past few weeks with associated wheezing. She want sent to ER by PCP due to reported
desaturation into the 80s on room air. Initial CXR negative.
She is not known to be on home O2, prior testing showed Pulse ox at 95% at rest and dropped to 92% with exertion.
She notes that she is unsure what triggered her exacerbation. She does feel improvement since treatment with IV steroids.
Past Medical History
Past Medical History: Other (see list below)
Social History
Tobacco: Smoker
Alcohol: None
Drug: None
Family History
Family History: Reviewed & Not Pertinent
Allergies / Home Medications
Allergies
Allergy/AdvReac Type Severity Reaction Status Date / Time
No Known Allergies Allergy Verified 04/09/24 12:32
Home Medications
�Medication �Instructions �Recorded �Confirmed �Last Taken �Type
sertraline 100 mg tablet 100 mg PO DAILY Depression 01/30/18 04/09/24 04/09/24 History
metformin 500 mg tablet 1,000 mg PO BID Diabetes 12/30/21 04/09/24 04/09/24 History
umeclidinium 62.5 mcg-vilanterol 1 inh inhalation R DAILY 02/24/23 04/09/24 04/09/24 History
25 mcg/actuation powdr for Lung/Breathing Issues
inhalation (Anoro Ellipta)
methimazole 5 mg tablet 2.5 mg PO DAILY hyperthyroidism 03/27/23 04/09/24 04/09/24 History
apixaban 5 mg tablet (Eliquis) 5 mg PO BID Blood Clot 04/09/24 04/09/24 04/09/24 History
Prevention/Tx
atorvastatin 40 mg tablet 40 mg PO DAILY High Cholesterol 04/09/24 04/09/24 04/09/24 History
diltiazem HCl 240 mg 240 mg PO BID Blood Pressure 04/09/24 04/09/24 04/09/24 History
capsule,extended release 24 hr
fluticasone fur. 100 mcg-umeclid 1 inh inhalation R DAILYPRN PRN 04/09/24 04/09/24 1 Week Ago History
62.5 mcg-vilant 25 mcg shortness of breath ~04/02/24
inhalat.powder (Trelegy Ellipta)
levalbuterol HCl 0.63 mg/3 mL 0.63 mg inhalation R TIDPRN PRN 04/09/24 04/09/24 04/09/24 History
solution for nebulization wheezing/SOB
levalbuterol tartrate 45 2 puff inhalation R Q4HPRN PRN 04/09/24 04/09/24 04/09/24 History
mcg/actuation aerosol inhaler shortness of breath
nicotine 14 mg/24 hr daily 1 patch transdermal DAILY smoking 04/09/24 04/09/24 04/09/24 History
transdermal patch cessation
pregabalin 150 mg capsule 150 mg PO BID Pain 04/09/24 04/09/24 04/09/24 History
roflumilast 500 mcg tablet 500 mcg PO DAILY Lung/Breathing 04/09/24 04/09/24 04/09/24 History
(Daliresp) Issues
Review of Systems
-
History Source: Patient
All other systems: Negative unless noted
Vitals / Labs / Diagnostic Testing
Vital Signs
Temp Pulse Resp BP Pulse Ox
98.2 F 94 18 146/81 95
04/11/24 11:57 04/11/24 11:57 04/11/24 11:57 04/11/24 11:57 04/11/24 11:57
Lab Data
04/11/24 05:07
05/15/24 05:07
Diagnostic Testing:
Physical Exam
-
HEENT: Normocephalic, Anicteric and Moist Mucous Membranes
Cardiovascular: S1/S2 and Regular Rhythm
Respiratory: Clear (overall decreased) and Non-Labored Respirations
GI: Soft, Non Distended and Non Tender
Neurology: Awake, Alert, Oriented, AO x 3 and No Motor Deficits
Skin: Warm, Dry and Good Color
General: Comfortable and Other (NAD)
Assessment
-
59 year old F with history of atrial fibrillation s/p ablation, HTN, HLD, NIDDM, COPD, Hyperthyroidism, HFmrEF presenting to ER for progressive SOB for the past few weeks with associated wheezing. She want sent to ER by PCP due to reported
desaturation into the 80s on room air. Initial CXR negative. She notes that she is unsure what triggered her exacerbation. She does feel improvement since treatment with IV steroids. We are consulted for eval.
Acute hypoxic resp failure
Acute COPD exacerbation
Hyperglycemia--steroid induced
Conditions present prior to admission:
COPD.
Known to [facility], seen by SAMPLER TESTER
Pulmonary function test 01/2024 w/ severe obstruction and moderately reduced diffusing capacity
Inhaler regimen recently increased to Trelegy 100 from Anoro
MICHELLE
Tobacco addiction, ongoing
Patient continues to smoke 3 to 4 cigarettes a day.
She has been smoking for 40+ years, 1.5 to 2 packs/day.
PAF.
Type 2 diabetes.
Obesity.
Hypertension.
Hyperlipidemia.
Anxiety.
Depression.
. Septoplasty. Bilateral total hip arthroplasty.
Plan
Respiratory status improved, she remains on O2
Not known to be on home O2
Assess discharge supplemental oxygen needs, order placed
Agree with IV steroids, transition to PO to taper at home
Resume home inhalers
Encouraged ambulation, incentive spirometry
Consider vest if difficulties mobilizing secretions
Consider chest physiotherapy if difficulties mobilizing secretions
CXR clear
No need for abx
Observe off
Monitor blood sugars while on steroids
Insulin supplementation as needed
Smoking cessation counseling ongoing
Nicotine patch
Lung cancer screening ongoing as OP
DVT prophylaxis recommended
GI prophylaxis recommended if on steroids for prolonged period
Early nutrition
Early mobilization
Stable for proposed discharge in next 24 hours
Outpatient pulmonary [id number]. Tran
Diagnostic Data
CXR 04/09/24- 1. Clear lungs. 2. No significant change compared to prior study.
Chest x-ray 12/07/2022-NAD
CT Chest 08/16/23- No acute CT findings in the chest. Partially imaged right thyroid lobe nodule. There is moderate atherosclerotic plaque within the visualized proximal right renal artery. This is incompletely evaluated on this exam. If clinically
warranted, MRA of the renal arteries could better assess for renal artery stenosis
CT chest 12/07/2022-no evidence for pulm embolism, no significant abnormalities in the chest
ECHO 02/14/24- Normal left ventricular size. Mildly reduced systolic function. No regional wall motion abnormalities are seen. Abnormal (paradoxical) septal motion consistent with IVCD. LV ejection fraction is 45-50% by visual estimate. Normal right
ventricular size and function. No significant valvular pathology. Compared to prior study dated 04/12/2023, LVEF previously called 35-40% however in directly comparing the images there is no significant change.
Echocardiogram 01/14/2022-EF 40-45%, no significant valvular disease
[2024-04-11] MEDS: NOVOLOG FLEXPEN-MODERATE RESISTANCE SC (13:07)
[2024-04-11] MEDS: NOVOLOG FLEXPEN 10 UNITS SC ×2 (13:10→17:44)
[2024-04-11 15:47] VITALS: BP 144/70
[2024-04-11 17:16] LABS: Glucose - Point of Care 235 mg/dl (70-99)
[2024-04-11] MEDS: NOVOLOG FLEXPEN-MODERATE RESISTANCE 3 UNITS SC (17:44)
[2024-04-11 19:53] VITALS: BP 157/77
[2024-04-11 21:31] LABS: Glucose - Point of Care 227 mg/dl (70-99)
[2024-04-11] MEDS: LANTUS 0.25 UNITS SC (21:45)
[2024-04-11 23:39] VITALS: BP 144/100
[2024-04-12] VITALS (7 sets, daily range): BP systolic 131–159; BP diastolic 64–88; PULSE 81; O2SAT 94; BMI 28.4
[2024-04-12 05:30] LABS: Hematocrit 39.7 % (37.0-47.0); Hemoglobin 13.3 g/dL (12.0-16.0); Mean Corp Hgb Conc. 33.5 g/dL (33.0-37.0); Mean Corpuscular Hgb 31.1 pg (27.0-31.0); Platelet Count 127 10^3/uL (130-400); Red Blood Cell Count 4.27 10^6/uL (4.20-5.40); Red Cell Dist. Width 12.5 % (11.5-14.5); White Blood Cell Count 10.4 10^3/uL (4.8-10.8)
[2024-04-12 05:57] LABS: Blood Urea Nitrogen 32 mg/dl (7-17); Calcium 9.6 mg/dl (8.4-10.2); Carbon Dioxide 32 mmol/L (22-30); Chloride 99 mmol/L (98-107); Estimated Creatinine Clearance 85 ml/min; Glucose 173 mg/dl (70-99); Magnesium 1.5 mg/dl (1.6-2.3); Phosphorus 3.1 mg/dl (2.5-4.5); Potassium 5.1 mmol/L (3.5-5.1); Sodium 137 mmol/L (135-145); eGFR > 60.00
--- NOTE | 2024-04-12 07:15 | W.PN.HOSP.TC ---
Today's Communication/Plan
-
wean O2 supplementation as tolerated
home oxygen assessment
glycemic control
loratadine for ear congestion/allergies
possible discharge tomorrow if remains stable/continues to improve
Assessment / Plan
Assessment / Plan
Physical Exam
General: No pallor, cyanosis, or jaundice.
HEENT: Throat clear. PERRLA Normocephalic atraumatic
NECK: Supple. No JVD Carotid Bruits
RESPIRATORY: relatively clear to auscultation mild/faint wheeze noted remains on oxygen supplementation
CVS: S1, S2 normal. RRR. No murmur, rub or gallop.
ABDOMEN: Soft, non-tender. No distension. BS+/normal.
EXTREMITIES: No peripheral cyanosis or edema.
CRIPPLE WORKER: AOx3. No focal deficits.
IMPRESSION:
58F hx atrial fibrillation s/p ablation HTN HLD NIDDM COPD Hyperthyroidism HFmrEF here for progressive sob for past weeks with associate wheezing. Referred by primary for evaluation ED due to desaturation 80s room air. Denies fever chills nausea
vomiting diarrhea constipation. No acute abn's noted on CXR. Saturating well on 2L afebrile bp stable. Labs relatively unremarkable, mild leukocytosis noted suspect stress reactive.
PLAN:
#COPD exacerbation
steroids Bronchodilators
Wean O2 supplementation as tolerated
PT/OT eval appreciated likely no skilled needs on discharge
Pulm eval appreciated, home oxygen assessment prior to discharge, outpt follow up recommended.
#Hx atrial fibrillation s/p ablation
#HTN
cont home Eliquis
cont home Cardizem with Holding parameters
#HLD
cont statin
#NIDDM
Medium Dose Sliding scale
A1c appreciated 8.9
cont home Metformin
Carb controlled Diet
DM METAL LATHER consult appreciated Lantus 25U Novolog 13U AC
medium dose sliding scale
#Neuropathy
cont home Pregabalin
#Anxiety/Depression
cont home Sertraline
#Hyperthyroidism
cont home methimazole
T4 mild elevation noted
TSH suppressed
appears relatively asymptomatic for hyperthyroidism at this time
patient reports noncompliance to medication, compliance encouraged
outpatient follow up her [facility] recommended
#Ear Congestion
Loratadine started 04/12
DVT ppx Eliquis
GI ppx Protonix
Full Code
I spent a total of 57 minutes with the patient or on the floor. More than 50% of this time involved counseling and coordination of care.
Anticipated Discharge: Within 24 hours
Subjective/Interval History
-
Date of Service: April 12, 2024
Reports ear congestion. continues to report cough. Overall reports improvement in symptoms dyspnea shortness of breath.
Objective Data
-
Labs:
Laboratory Results
04/12/24
04:43
WBC 10.4
Hgb 13.3
Hct 39.7
Plt Count 127 L
Sodium 137
Potassium 5.1
Chloride 99
Carbon Dioxide 32 H
BUN 32 H
Creatinine 0.7
Glucose 173 H
Calcium 9.6
Vital Signs:
Vital Signs
Temp Pulse Resp BP Pulse Ox
97.8 F 85 18 147/84 95
04/12/24 03:05 04/12/24 03:05 04/12/24 03:05 04/12/24 03:05 04/12/24 03:05
I&O
04/11/24 04/12/24 04/13/24
06:59 06:59 06:59
Intake Total 1500 / 1500 1620 / 1620
Balance 1500 / 1500 1620 / 1620
[2024-04-12] MEDS: SPIRIVA RESPIMAT 2.5 MCG 2 PUFF INH (07:32)
[2024-04-12] MEDS: STRIVERDI RESPIMAT 2 PUFF INH (07:32)
[2024-04-12] MEDS: XOPENEX 0.63 MG INHALANT SOLUTION 0.630000000000000004 MG INH ×3 (07:33→19:28)
--- NOTE | 2024-04-12 08:14 | PN.DE.MGMTRT ---
Insulin Management
- -
04/12/2024 Diabetes Management Consult Follow up
Patient admitted 04/09 with SOB, exacerbation COPD. PMH includes COPD, afib/ablation, type 2 diabetes, alcohol abuse, anxiety depression, HTN, GERD, HCL. A1C on admission 8.9%, cr .6, eGFR >60.
Patient is awake alert, and oriented, able to discuss diabetes management. She has a working glucose monitor at home . Encouraged to consider CGM. She has seen Endo in [place] but has not been there in awhile, encouraged to call for follow up
appt. NASIR. Provided information for outpatient diabetes classes, patient stated she did not want the information.
Dexamethasone Q 12 hours has been stopped, Prednisone 40 mg daily continues.
Patient currently receiving metformin 1000 BID, with lantus 20 units @ hs with 10 units novolog AC with moderate corrective insulin. Glucose improved 482 down to range 146 to 235. Received increased dose of lantus 25 units last evening, fasting
glucose this AM 173. Will increase AC novolog to 13 units and continue HS lantus to 25 units @ hs.
I provided step by step instruction sheet for insulin pen prep and self administration. Reviewed steps with patient, she did excellent with demonstration.
I spoke with patients nurse, she will reinforce insulin pen use with each administration. Home pen needles given to nurse. Patient states she feels confident self injecting.
Will follow.
Diabetes History
- -
Type of Diabetes: 2
Pre-Admission Diabetes Regimen
04/12/24
04:43
Creatinine 0.7
Lab Results
Hemoglobin A1c 8.9 % (4.0-5.6) H 04/10/24 07:00
Insulin Pump Settings
IP Diabetes Regimen
04/11/24 04/11/24 04/11/24
12:32 17:13 21:29
Glucose
POC Glucose 146 H 235 H 227 H
04/12/24
04:43
Glucose 173 H
POC Glucose
Meal type: Dinner
Meal type: Lunch
Meal type: Breakfast
Amount consumed: 100%
Amount consumed: 100%
Amount consumed: 100%
Patient Education
[2024-04-12 08:27] LABS: Glucose - Point of Care 161 mg/dl (70-99)
[2024-04-12] MEDS: NOVOLOG FLEXPEN-MODERATE RESISTANCE 1 UNITS SC ×2 (09:26→17:06)
[2024-04-12] MEDS: NOVOLOG FLEXPEN 13 UNITS SC ×2 (09:26→17:06)
[2024-04-12] MEDS: ROBITUSSIN AC 5 ML PO ×4 (09:27→23:47)
[2024-04-12] MEDS: NICODERM TRANSDERMAL 14 MG TRANSDERM (09:27)
[2024-04-12] MEDS: DALIRESP 500 MCG PO (09:29)
[2024-04-12] MEDS: PROTONIX 40 MG PO (09:29)
[2024-04-12] MEDS: LYRICA 150 MG PO ×2 (09:29→19:44)
[2024-04-12] MEDS: ELIQUIS 5 MG PO ×2 (09:29→19:44)
[2024-04-12] MEDS: DELTASONE 40 MG PO (09:29)
[2024-04-12] MEDS: LIPITOR 40 MG PO (09:30)
[2024-04-12] MEDS: GLUCOPHAGE 1000 MG PO ×2 (09:30→17:06)
[2024-04-12] MEDS: CARDIZEM CD 240 MG PO ×2 (09:30→19:43)
[2024-04-12] MEDS: ZOLOFT 100 MG PO (09:31)
[2024-04-12] MEDS: TAPAZOLE 2.5 MG PO (09:31)
--- NOTE | 2024-04-12 09:32 | W.PN.PUL3 ---
Today's Communication / Plan
-
Doing well, transitioned to PO steroids
Home o2 eval, now off oxygen
Outpatient follow up arrangements
Discharge planning per team
Assessment
-
59 year old F with history of atrial fibrillation s/p ablation, HTN, HLD, NIDDM, COPD, Hyperthyroidism, HFmrEF presenting to ER for progressive SOB for the past few weeks with associated wheezing. She want sent to ER by PCP due to reported
desaturation into the 80s on room air. Initial CXR negative. She notes that she is unsure what triggered her exacerbation. She does feel improvement since treatment with IV steroids. We are consulted for eval.
Acute hypoxic resp failure
Acute COPD exacerbation
Hyperglycemia--steroid induced
Conditions present prior to admission:
COPD.
Known to [facility], seen by HEATER ENGINEER HELPER
Pulmonary function test 01/2024 w/ severe obstruction and moderately reduced diffusing capacity
Inhaler regimen recently increased to Trelegy 100 from Anoro
MICHELLE
Tobacco addiction, ongoing
Patient continues to smoke 3 to 4 cigarettes a day.
She has been smoking for 40+ years, 1.5 to 2 packs/day.
PAF.
Type 2 diabetes.
Obesity.
Hypertension.
Hyperlipidemia.
Anxiety.
Depression.
. Septoplasty. Bilateral total hip arthroplasty.
Plan
Respiratory status improved, she remains on O2
Not known to be on home O2
Assess discharge supplemental oxygen needs, she is off oxygen on room air
IV steroids, transitioned to PO to taper at home
Resume home inhalers
Encouraged ambulation, incentive spirometry
Consider vest if difficulties mobilizing secretions
Consider chest physiotherapy if difficulties mobilizing secretions
CXR clear
No need for abx
Observe off
Monitor blood sugars while on steroids
Insulin supplementation as needed
Smoking cessation counseling ongoing
Nicotine patch
Lung cancer screening ongoing as OP
DVT prophylaxis recommended
GI prophylaxis recommended if on steroids for prolonged period
Early nutrition
Early mobilization
Stable for proposed discharge in next 24 hours
All questions reviewed from , extra time spent to answer all questions
Outpatient pulmonary [id number]. Tran
Diagnostic Data
CXR 04/09/24- 1. Clear lungs. 2. No significant change compared to prior study.
Chest x-ray 12/07/2022-NAD
CT Chest 08/16/23- No acute CT findings in the chest. Partially imaged right thyroid lobe nodule. There is moderate atherosclerotic plaque within the visualized proximal right renal artery. This is incompletely evaluated on this exam. If clinically
warranted, MRA of the renal arteries could better assess for renal artery stenosis
CT chest 12/07/2022-no evidence for pulm embolism, no significant abnormalities in the chest
ECHO 02/14/24- Normal left ventricular size. Mildly reduced systolic function. No regional wall motion abnormalities are seen. Abnormal (paradoxical) septal motion consistent with IVCD. LV ejection fraction is 45-50% by visual estimate. Normal right
ventricular size and function. No significant valvular pathology. Compared to prior study dated 04/12/2023, LVEF previously called 35-40% however in directly comparing the images there is no significant change.
Echocardiogram 01/14/2022-EF 40-45%, no significant valvular disease
Extensive time taken to answer questions from , TT on encounter: 50mins
Subjective Data
-
Date of Service:
Date of Service: April 12, 2024
Chief Complaint: Pulmonary Follow Up
Subjective:
no acute events ON, now off O2 stable on room air
at bedside
she has no new complaints, some SUTTON
Objective Data
Data Reviewed
Vital Signs / I&O / Oxygen:
Vital Signs
Temp Pulse Resp BP Pulse Ox
97.8 F 79 20 131/77 97
04/12/24 03:05 04/12/24 07:57 04/12/24 07:57 04/12/24 07:57 04/12/24 07:57
Intake and Output
04/11/24 04/12/24 04/13/24
06:59 06:59 06:59
Intake Total 1500 / 1500 1620 / 1620
Balance 1500 / 1500 1620 / 1620
SaO2 97
Nasal Cannula flow liters per 2
minute
Physical Exam
General: Comfortable and Other (NAD)
HEENT: Normocephalic, Anicteric and Moist Mucous Membranes
Cardiovascular: S1-S2 and Regular Rhythm
Respiratory: Clear and Non-Labored Respirations
GI: Soft, Non Distended and Non Tender
Neurology: Awake, Alert, Oriented, AO x 3 and No Motor Deficits
Skin: Warm, Dry and Good Color
Labs/Micro/Reports
Lab Data
04/12/24 04:43
04/12/24 04:43
[2024-04-12] MEDS: NOVOLOG FLEXPEN SC ×2 (09:33→12:31)
[2024-04-12] MEDS: MAGNESIUM SULFATE 50 IV (10:30)
[2024-04-12] MEDS: CLARITIN 10 MG PO (10:31)
--- NOTE | 2024-04-12 10:38 | CM ---
met with patient at bedside.patient on o2 at 2 liters nc, cont neb,now on po prednisone.follow for any home o2 needs.Plan home with no needs vs home with home oxygen.
[2024-04-12 11:56] LABS: Glucose - Point of Care 115 mg/dl (70-99)
[2024-04-12] MEDS: NOVOLOG FLEXPEN-MODERATE RESISTANCE SC (12:31)
[2024-04-12] MEDS: NOVOLOG FLEXPEN 11 UNITS SC (12:34)
[2024-04-12 16:51] LABS: Glucose - Point of Care 170 mg/dl (70-99)
[2024-04-12 21:07] LABS: Glucose - Point of Care 218 mg/dl (70-99)
[2024-04-12] MEDS: LANTUS 0.25 UNITS SC (21:19)
[2024-04-13 05:34] LABS: Hemoglobin 13.6 g/dL (12.0-16.0); Mean Corp Hgb Conc. 33.2 g/dL (33.0-37.0); Mean Corpuscular Hgb 31.1 pg (27.0-31.0); Mean Corpuscular Volume 93.6 fL (81.0-99.0); Mean Platelet Volume 11.7 fL (7.4-10.4); Platelet Count 130 10^3/uL (130-400); Red Blood Cell Count 4.38 10^6/uL (4.20-5.40); Red Cell Dist. Width 12.5 % (11.5-14.5); White Blood Cell Count 10.8 10^3/uL (4.8-10.8)
[2024-04-13 05:56] LABS: Blood Urea Nitrogen 28 mg/dl (7-17); Calcium 9.7 mg/dl (8.4-10.2); Carbon Dioxide 31 mmol/L (22-30); Chloride 99 mmol/L (98-107); Estimated Creatinine Clearance 74 ml/min; Glucose 128 mg/dl (70-99); Magnesium 1.7 mg/dl (1.6-2.3); Phosphorus 3.4 mg/dl (2.5-4.5); Potassium 4.7 mmol/L (3.5-5.1); Sodium 138 mmol/L (135-145); eGFR > 60.00
[2024-04-13 06:00] VITALS: BMI 28.1
--- NOTE | 2024-04-13 07:19 | W.PN.HOSP.TC ---
Today's Communication/Plan
-
discharge
Assessment / Plan
Assessment / Plan
Physical Exam
General: No pallor, cyanosis, or jaundice.
HEENT: Throat clear. PERRLA Normocephalic atraumatic
NECK: Supple. No JVD Carotid Bruits
RESPIRATORY: Clear to Auscultation Stable Respiratory Status on Room air
CVS: S1, S2 normal. RRR. No murmur, rub or gallop.
ABDOMEN: Soft, non-tender. No distension. BS+/normal.
EXTREMITIES: No peripheral cyanosis or edema.
CHARGE POSTER: AOx3. No focal deficits.
IMPRESSION:
58F hx atrial fibrillation s/p ablation HTN HLD NIDDM COPD Hyperthyroidism HFmrEF here for progressive sob for past weeks with associate wheezing. Referred by primary for evaluation ED due to desaturation 80s room air. Denies fever chills nausea
vomiting diarrhea constipation. No acute abn's noted on CXR. Saturating well on 2L afebrile bp stable. Labs relatively unremarkable, mild leukocytosis noted suspect stress reactive.
PLAN:
#COPD exacerbation
steroids Bronchodilators
Weaned off oxygen supplementation stable on room air
PT/OT eval appreciated no skilled needs on discharge
Pulm eval appreciated, home oxygen assessment appreciated no needs, outpt follow up recommended.
#Hx atrial fibrillation s/p ablation
#HTN
cont home Eliquis
cont home Cardizem with Holding parameters
#HLD
cont statin
#NIDDM
Medium Dose Sliding scale
A1c appreciated 8.9
cont home Metformin
Carb controlled Diet
DM RADAR AIR TRAFFIC CONTROLLER consult appreciated Lantus 25U Novolog 13U AC
medium dose sliding scale
#Neuropathy
cont home Pregabalin
#Anxiety/Depression
cont home Sertraline
#Hyperthyroidism
cont home methimazole
T4 mild elevation noted
TSH suppressed
appears relatively asymptomatic for hyperthyroidism at this time
patient reports noncompliance to medication, compliance encouraged
outpatient follow up with her [facility] recommended
#Ear Congestion
Loratadine started 04/12 symptom subsequently improved
DVT ppx Eliquis
GI ppx Protonix
Full Code
Medically stable for discharge home with outpatient follow up recommendations.
Total Time Preparing Discharge ___50____ minutes including examination of the patient, summary of the hospital stay, instructions for continuing care to all relevant caregivers; and preparation of discharge records, prescriptions, and referral
forms if necessary.
Anticipated Discharge: Today
Subjective/Interval History
-
Date of Service: April 13, 2024
Seen and examined at bedside in no acute distress sitting up comfortably in bed. reports feeling well. Denies new acute issues at this time. Eager to go home.
Objective Data
-
Labs:
Laboratory Results
04/13/24
04:26
WBC 10.8
Hgb 13.6
Hct 41.0
Plt Count 130
Sodium 138
Potassium 4.7
Chloride 99
Carbon Dioxide 31 H
BUN 28 H
Creatinine 0.8
Glucose 128 H
Calcium 9.7
Vital Signs:
Vital Signs
Temp Pulse Resp BP Pulse Ox
98.9 F 91 18 159/88 90
04/12/24 23:43 04/12/24 23:43 04/12/24 23:43 04/12/24 23:43 04/12/24 23:43
I&O
04/12/24 04/13/24 04/14/24
06:59 06:59 06:59
Intake Total 162 / 1620 2089
Balance 162 / [id number]
--- NOTE | 2024-04-13 07:33 | PN.DE.MGMTRT ---
Insulin Management
- -
: Diabetes Management F/U:
Patient admitted 04/09 with SOB, exacerbation COPD. PMH includes COPD, afib/ablation, type 2 diabetes, alcohol abuse, anxiety depression, HTN, GERD, HCL. A1C on admission 8.9%, cr .6, eGFR >60. Was taking metformin 1000 mg BID, has a working
glucose monitor at home, has seen Endo in [place] but has not been there in awhile, encouraged to call for follow up appt. NASIR and to consider CGM.
Patient is awake, A/O x3, sitting up on bed, offers no complaints, able to discuss diabetes management.
Remains on steroids- Prednisone 40 mg daily. Her insulin doses were adjusted yesterday to Lantus 25 units @ HS and NovoLog 13 units AC with moderate corrective insulin. Glucose has improved and remains stable, was 170 pre-dinner, 218 @hs with a FBG
of 128 this AM.
Will make no changes to current regimen: Metformin 1000 BID, Lantus 25 units @ HS and NovoLog 13 units AC with moderate corrective insulin.
Will follow. Encouraged outpatient diabetes classes, patient declined stating that she is not interested at this time.
Diabetes History
- -
Type of Diabetes: 2 requiring insulin
Pre-Admission Diabetes Regimen
04/13/24
04:26
Creatinine 0.8
Lab Results
Hemoglobin A1c 8.9 % (4.0-5.6) H 04/10/24 07:00
Insulin Pump Settings
IP Diabetes Regimen
04/12/24 04/12/24 04/12/24
08:24 11:55 16:47
Glucose
POC Glucose 161 H 115 H 170 H
04/12/24 04/13/24
21:04 04:26
Glucose 128 H
POC Glucose 218 H
Meal type: Dinner
Meal type: Lunch
Meal type: Breakfast
Amount consumed: 100%
Amount consumed: 100%
Amount consumed: 100%
Patient Education
[2024-04-13 07:42] VITALS: BP 142/76
[2024-04-13 08:00] LABS: Glucose - Point of Care 105 mg/dl (70-99)
[2024-04-13] MEDS: LIPITOR 40 MG PO (08:22)
[2024-04-13] MEDS: ZOLOFT 100 MG PO (08:22)
[2024-04-13] MEDS: DALIRESP 500 MCG PO (08:22)
[2024-04-13] MEDS: SPIRIVA RESPIMAT 2.5 MCG 2 PUFF INH (08:22)
[2024-04-13] MEDS: GLUCOPHAGE 1000 MG PO (08:22)
[2024-04-13] MEDS: STRIVERDI RESPIMAT 2 PUFF INH (08:22)
[2024-04-13] MEDS: PROTONIX 40 MG PO (08:22)
[2024-04-13] MEDS: XOPENEX 0.63 MG INHALANT SOLUTION 0.630000000000000004 MG INH ×2 (08:22→13:12)
[2024-04-13] MEDS: TAPAZOLE 2.5 MG PO (08:23)
[2024-04-13] MEDS: CLARITIN 10 MG PO (08:23)
[2024-04-13] MEDS: LYRICA 150 MG PO (08:23)
[2024-04-13] MEDS: ELIQUIS 5 MG PO (08:23)
[2024-04-13] MEDS: DELTASONE 40 MG PO (08:23)
[2024-04-13] MEDS: NICODERM TRANSDERMAL 14 MG TRANSDERM (08:25)
[2024-04-13] MEDS: CARDIZEM CD 240 MG PO (08:25)
[2024-04-13] MEDS: ROBITUSSIN AC 5 ML PO ×2 (08:30→15:39)
--- NOTE | 2024-04-13 09:12 | W.PN.PUL3 ---
Today's Communication / Plan
-
Doing well today, no further events
Remains stable on room air
Outpatient pulmonary FU recommended
Discharge planning per team
Assessment
-
59 year old F with history of atrial fibrillation s/p ablation, HTN, HLD, NIDDM, COPD, Hyperthyroidism, HFmrEF presenting to ER for progressive SOB for the past few weeks with associated wheezing. She want sent to ER by PCP due to reported
desaturation into the 80s on room air. Initial CXR negative. She notes that she is unsure what triggered her exacerbation. She does feel improvement since treatment with IV steroids. We are consulted for eval.
Acute hypoxic resp failure
Acute COPD exacerbation
Hyperglycemia--steroid induced
Conditions present prior to admission:
COPD.
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
Pulmonary function test 01/2024 w/ severe obstruction and moderately reduced diffusing capacity
Inhaler regimen recently increased to Trelegy 100 from Anoro
MICHELLE
Tobacco addiction, ongoing
Patient continues to smoke 3 to 4 cigarettes a day.
She has been smoking for 40+ years, 1.5 to 2 packs/day.
PAF.
Type 2 diabetes.
Obesity.
Hypertension.
Hyperlipidemia.
Anxiety.
Depression.
. Septoplasty. Bilateral total hip arthroplasty.
Plan
Respiratory status improved, she remains on O2
Not known to be on home O2
Assess discharge supplemental oxygen needs, she is off oxygen on room air
IV steroids, transitioned to PO to taper at home
Resume home inhalers
Encouraged ambulation, incentive spirometry
Consider vest if difficulties mobilizing secretions
Consider chest physiotherapy if difficulties mobilizing secretions
CXR clear
No need for abx, reviewed with patient
Observe off
Monitor blood sugars while on steroids
Insulin supplementation as needed
Smoking cessation counseling ongoing
Nicotine patch
Lung cancer screening ongoing as OP
DVT prophylaxis recommended
GI prophylaxis recommended if on steroids for prolonged period
Early nutrition
Early mobilization
Stable for proposed discharge in next 24 hours
All questions reviewed from , extra time spent to answer all questions
Outpatient pulmonary [id number]. Tran
Diagnostic Data
CXR 04/09/24- 1. Clear lungs. 2. No significant change compared to prior study.
Chest x-ray 12/07/2022-NAD
CT Chest 08/16/23- No acute CT findings in the chest. Partially imaged right thyroid lobe nodule. There is moderate atherosclerotic plaque within the visualized proximal right renal artery. This is incompletely evaluated on this exam. If clinically
warranted, MRA of the renal arteries could better assess for renal artery stenosis
CT chest 12/07/2022-no evidence for pulm embolism, no significant abnormalities in the chest
ECHO 02/14/24- Normal left ventricular size. Mildly reduced systolic function. No regional wall motion abnormalities are seen. Abnormal (paradoxical) septal motion consistent with IVCD. LV ejection fraction is 45-50% by visual estimate. Normal right
ventricular size and function. No significant valvular pathology. Compared to prior study dated 04/12/2023, LVEF previously called 35-40% however in directly comparing the images there is no significant change.
Echocardiogram 01/14/2022-EF 40-45%, no significant valvular disease
Extensive time taken to answer questions from , TT on encounter: 50mins
Subjective Data
-
Date of Service:
Date of Service: April 13, 2024
Chief Complaint: Pulmonary Follow Up
Subjective:
doing well this AM
stable on room air, ok with going home
Objective Data
Data Reviewed
Vital Signs / I&O / Oxygen:
Vital Signs
Temp Pulse Resp BP Pulse Ox
98.2 F 85 18 142/76 95
04/13/24 07:42 04/13/24 08:25 04/13/24 08:25 04/13/24 08:25 04/13/24 08:25
Intake and Output
04/12/24 04/13/24 04/14/24
06:59 06:59 06:59
Intake Total 1619
Balance 1619
SaO2 95
Nasal Cannula flow liters per 2
minute
Physical Exam
General: Comfortable and Other (NAD)
HEENT: Normocephalic, Anicteric and Moist Mucous Membranes
Cardiovascular: S1-S2 and Regular Rhythm
Respiratory: Clear and Non-Labored Respirations
GI: Soft, Non Distended and Non Tender
Neurology: Awake, Alert, Oriented, AO x 3 and No Motor Deficits
Skin: Warm, Dry and Good Color
Labs/Micro/Reports
Lab Data
04/13/24 04:26
04/13/24 04:26
[2024-04-13] MEDS: NOVOLOG FLEXPEN-MODERATE RESISTANCE SC (09:36)
[2024-04-13] MEDS: NOVOLOG FLEXPEN 13 UNITS SC ×2 (09:36→12:09)
[2024-04-13 10:38] VITALS: O2SAT 93
[2024-04-13 11:39] LABS: Glucose - Point of Care 192 mg/dl (70-99)
[2024-04-13] MEDS: NOVOLOG FLEXPEN-MODERATE RESISTANCE 1 UNITS SC (12:09)
--- NOTE | 2024-04-13 14:33 | CM ---
met with patient at bedside.copd exac,stable on room air.needs pulmonary follow up when dc.Plan:dc home with no needs.
[2024-04-13 15:43] VITALS: BP 135/70
[2024-04-13 16:41] LABS: Glucose - Point of Care 354 mg/dl (70-99)
[2024-04-13] MEDS: NOVOLOG FLEXPEN-MODERATE RESISTANCE 9 UNITS SC (16:44)
== END 2024-04-13 17:08 | disposition home or self-care (01) | DRG 190 ==
LOC: 4 EAST ACU 19:31
PROVIDERS: Emergency Medicine; Nurse Practitioner Family; ADMITTING PHYSICIAN Internal Medicine; EMERGENCY PHYSICIAN Emergency Medicine; FAMILY PHYSICIAN Family Medicine; OTHER PHYSICIAN Internal Medicine
DX: J44.1 Chronic obstructive pulmonary disease with (acute) exacerbation (principal); J96.01 Acute respiratory failure with hypoxia; I50.22 Chronic systolic (congestive) heart failure; I11.0 Hypertensive heart disease with heart failure; Z79.01 Long term (current) use of anticoagulants; E11.65 Type 2 diabetes mellitus with hyperglycemia; Z79.84 Long term (current) use of oral hypoglycemic drugs; E11.40 Type 2 diabetes mellitus with diabetic neuropathy, unspecified; F32.A Depression, unspecified; F41.9 Anxiety disorder, unspecified; F17.200 Nicotine dependence, unspecified, uncomplicated; E78.00 Pure hypercholesterolemia, unspecified; E05.90 Thyrotoxicosis, unspecified without thyrotoxic crisis or storm; I48.0 Paroxysmal atrial fibrillation
CPT/HCPCS: 71046; 80048; 80053; 82947; 82962; 83036; 83735; 83880; 84100; 84439; 84443; 84484; 85025; 85027; 87811; 93005; 94640; 96374; 97116; 97161; 97165; 97530; 99285; 99406

== ENCOUNTER → 2024-05-28 13:30 | Outpatient (REF) | payer BC, SELFPAY | LOC: WDC 13:30 | PROVIDERS: ATTENDING PHYSICIAN Nurse Practitioner Adult Health; FAMILY PHYSICIAN Family Medicine | DX: Z12.31 Encounter for screening mammogram for malignant neoplasm of breast (principal) | CPT/HCPCS: 77063; 77067 ==

== ENCOUNTER → 2024-06-11 09:09 | Outpatient (REF) | payer BC, SELFPAY | LOC: RAD 09:09 | PROVIDERS: ATTENDING PHYSICIAN Nurse Practitioner Adult Health; FAMILY PHYSICIAN Family Medicine | DX: N83.209 Unspecified ovarian cyst, unspecified side (principal) | CPT/HCPCS: 76830; 76856 ==

== ENCOUNTER 2024-09-12 23:49 | Inpatient (IN) | payer BC, SELFPAY ==
[2024-09-12 20:40] VITALS: BMI 30.5
[2024-09-12 20:41] VITALS: BP 145/95
[2024-09-12 20:46] LABS: Glucose - Point of Care 315 mg/dl (70-99)
[2024-09-12 21:05] LABS: % Basophils 0.4 % (0-2); % Eosinophils 0.5 % (0-6); % Immature Granulocytes 2.4 % (0-0.5); % Lymphocytes 7.8 % (20.5-51.1); % Monocytes 5.7 % (1.7-9.3); % Neutrophils 83.2 % (42.2-75.2); Absolute Basophils 0.1 10^3/uL (0-0.2); Absolute Eosinophils 0.1 10^3/uL (0-0.7); Absolute Immature Granulocytes 0.3 10^3/uL (0-0.05); Absolute Lymphocytes 1.1 10^3/uL (1.2-3.4); Absolute Monocytes 0.8 10^3/uL (0.1-0.6); Absolute Neutrophils 11.5 10^3/uL (1.4-6.5); Hematocrit 40.6 % (37.0-47.0); Hemoglobin 13.6 g/dL (12.0-16.0); Mean Corp Hgb Conc. 33.5 g/dL (33.0-37.0); Mean Corpuscular Hgb 30.7 pg (27.0-31.0); Mean Corpuscular Volume 91.6 fL (81.0-99.0); Mean Platelet Volume 12.3 fL (7.4-10.4); Nucleated Red Blood Cells % 0.1 %; Platelet Count 136 10^3/uL (130-400); Red Blood Cell Count 4.43 10^6/uL (4.20-5.40); Red Cell Dist. Width 15.5 % (11.5-14.5); White Blood Cell Count 13.8 10^3/uL (4.8-10.8)
[2024-09-12 21:32] LABS: ALT (SGPT) 74 U/L (0-35); AST (SGOT) 54 U/L (14-36); Albumin 4.3 g/dl (3.5-5.0); Alkaline Phosphatase 115 U/L (38-126); Blood Urea Nitrogen 33 mg/dl (7-17); Calcium 9.4 mg/dl (8.4-10.2); Carbon Dioxide 22 mmol/L (22-30); Chloride 102 mmol/L (98-107); Glucose 309 mg/dl (70-99); Potassium 4.2 mmol/L (3.5-5.1); Sodium 136 mmol/L (135-145); Total Bilirubin 1.1 mg/dl (0.2-1.3); Total Protein 6.3 g/dl (6.3-8.2); eGFR > 60.00
[2024-09-12 21:34] VITALS: BP 138/125
[2024-09-12] MEDS: XOPENEX 0.63 MG INHALANT SOLUTION INH ×3 (21:50)
[2024-09-12] MEDS: DECADRON 10 MG IV (21:51)
[2024-09-12 21:55] LABS: Venous Blood Gas B.E. -5.5 mmol/L (-4 to +4); Venous Blood Gas HCO3 21.6 mmol/L (22-27); Venous Blood Gas O2 Sat % 97.3 %; Venous Blood Gas pCO2 47 mmHg (35-48); Venous Blood Gas pH 7.27 (7.32-7.43); Venous Blood Gas pO2 83 mmHg (30-50)
[2024-09-12 21:56] LABS: Venous Blood Gas O2 Therapy 4L NC
[2024-09-12 22:00] VITALS: BP 128/116
[2024-09-12 22:24] LABS: COVID-19 Antigen Negative (Negative)
--- NOTE | 2024-09-12 22:46 | ED.GENMED ---
History of Present Illness
General
Chief Complaint: Breathing Problem
Source: patient and family
Time Seen by Provider: 09/12/24 21:29
History of Present Illness
History of Present Illness:
59-year-old smoker with a history of COPD, A-fib/a flutter, hypertension who presents with worsening shortness of breath. She has had progressive cough over the last few weeks. She is seeing her primary care doctor. 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
she follows with. No fevers. Patient does present mild respiratory distress. No vomiting.
Past History
Past History
ED Past Medical History: COPD, GERD, HTN, Hypercholesterolemia, NIDDM, Psychiatric (Anxiety, Depression) and Other (Sciatica)
ED Past Surgical History: Bowel resection, , Orthopedic (Left and right hip replacements) and Other (Deviated septum)
Social History
Tobacco: Smoker
Alcohol: Occasional
Personal:
Living: with family
Family History
Family History: Negative Early CAD
Phy Exam
Physical Exam
Physical Exam:
CONSTITUTIONAL Patient alert and oriented to person, place and time. ill-appearing. Vital signs reviewed.
HEAD atraumatic, normocephalic.
EYES eyelids normal to inspection, Pupils equally round and reactive to light, Extraocular muscles intact, Conjunctiva normal, Sclera normal.
NECK normal range of motion, Trachea midline, no jugular venous distention.
RESPIRATORY CHEST moderate respiratory distress with pursed lip breathing. Poor air movement globally
CARDIOVASCULAR irregularly irregular and tachycardic
ABDOMEN No distention.
BACK normal inspection, no obvious deformities
UPPER EXTREMITY range of motion normal, Motor strength normal, no cyanosis, no edema.
LOWER EXTREMITY range of motion normal, Motor strength normal, no cyanosis, no edema.
NEURO Speech normal, No focal motor deficits, Estela coma scale 15, Memory normal, Cranial Nerves intact to screening exam.
Scores
Heart Failure Risk
Heart Failure Risk Score: Yes
History of Stroke or TIA: No
History of intubation for respiratory distress: No
Heart rate on ED arrival >/= 110: Yes
SaO2 <90% on arrival on room air: Yes
HR >/=110 during 3min walk test (or too ill to perform test): Yes
ECG has acute ischemic changes: No
Urea >/=12mmol/L (BUN 33.6mg/dL): No
Serum CO2>/=35mmol/L: No
Troponin I or T elevated to NM Level (0.4mg/dL): No
NT-proBNP >/=5,000ng/L (5,000pg/ml): Yes
HF Risk Score: 4
Admission Status: HIGH RISK 26.1% Consider SNF treatment or admission to hospital
Course
Orders/Labs/Results
Orders:
Orders
09/12/24 20:42
Electrocardiogram (*1) Urgent
Reason for Study: Shortness of Breath
EKG- Treatment ONCE
09/12/24 20:58
CMP [Comprehensive Metabolic Panel] Urgent
Complete Blood Count/With Diff Urgent
09/12/24 21:36
Dexamethasone Sod Phosphate [Decadron] 10 mg IV NOW STA
Levalbuterol [Xopenex 0.63 mg Inhalant Solution] 0.63 mg INH R NOW STA
Levalbuterol [Xopenex 0.63 mg Inhalant Solution] 0.63 mg INH R NOW STA
Levalbuterol [Xopenex 0.63 mg Inhalant Solution] 0.63 mg INH R NOW STA
09/12/24 21:38
Cardiac Monitoring- Treatment ONCE
CR Chest Portable - 1 View Urgent
Comment:
Reason For Exam: resp distress
Reason Study Needs to be Portable: Patient Unstable
Bipap [RESP] Stat
Patient to use own unit?: No
Inspiratory Pressure (cm H2O): 12
Expiratory Pressure (cm H2O): 5
09/12/24 21:47
NT-proBNP Urgent
Troponin I Urgent
Venous Blood Gas Urgent
%Oxygen/Room Air: 4L
09/12/24 22:02
COVID-19 Antigen Urgent
Source: Nasal Swab
Influenza A+B Rapid Molecular Urgent
TUYET Source: Nasal Swab
Specimen Description:
09/12/24 22:45
Diltiazem HCl [Cardizem] 10 mg IV NOW STA
09/12/24 23:30
Diltiazem 125 mg/125 ml Nss [Cardizem] 125 mg in 125 ml IV PER PROTOCOL
Initial dose in mg/hr, then titrate:: 10
Titrate to keep:: Heart rate 80-100 bpm
Titrate by mg/hr:: 5 mg/hr
Frequency of titrations (minutes):: 15
Maximum dose in mg/hr:: 15
09/13/24 08:00
Apixaban [Eliquis] 5 mg PO BID
Atorvastatin [Lipitor] 40 mg PO DAILY
Loratadine [Claritin] 10 mg PO DAILY
Methimazole [Tapazole] 5 mg PO DAILY
Roflumilast [Daliresp] 500 mcg PO DAILY
Sertraline HCl [Zoloft] 100 mg PO DAILY
pregabalin 150 mg PO BID
Abnormal Lab Results
09/12/24 09/12/24 09/12/24
20:44 20:58 21:47
WBC 13.8 H 10^3/uL
(4.8-10.8)
RDW 15.5 H %
(11.5-14.5)
MPV 12.3 H fL
(7.4-10.4)
Abs Immat Gran (auto) 0.3 H 10^3/uL
(0-0.05)
Absolute Neuts (auto) 11.5 H 10^3/uL
(1.4-6.5)
Absolute Lymphs (auto) 1.1 L 10^3/uL
(1.2-3.4)
Absolute Monos (auto) 0.8 H 10^3/uL
(0.1-0.6)
Immature Gran % 2.4 H %
(0-0.5)
Neutrophils % 83.2 H %
(42.2-75.2)
Lymphocytes % 7.8 L %
(20.5-51.1)
VBG pH 7.27 L
(7.32-7.43)
VBG pO2 83 H mmHg
(30-50)
VBG HCO3 21.6 L mmol/L
(22-27)
BUN 33 H mg/dl
(7-17)
Glucose 309 H mg/dl
(70-99)
AST 54 H U/L
(14-36)
ALT 74 H U/L
(0-35)
Troponin I 0.042 H* ng/ml
POC Glucose 315 H mg/dl
(70-99)
09/12/24 20:58
09/12/24 20:58
Vital Signs
Initial and Last Documented VS:
Initial Vital Signs
Temp Pulse Resp BP
98.4 F 85 30 145/95
09/12/24 20:41 09/12/24 20:41 09/12/24 20:41 09/12/24 20:41
Last Documented Vital Signs
Temp Pulse Resp BP Pulse Ox
97.4 F 123 26 124/100 97
09/13/24 01:42 09/13/24 01:29 09/13/24 01:29 09/13/24 01:30 09/13/24 01:15
MDM/Problems Addressed
MDM/Problems Addressed:
Acute severe COPD exacerbation, hypoxia, acute severe respiratory distress, acute severe hyperglycemia, atrial fibrillation with rapid ventricular response. Pericardial effusion
*Radiology
Radiology exam reviewed: preliminary read by ED provider (No infiltrative process but does have a globular heart)
*Pulse Oximetry
Patient hypoxic: yes
*EKG
Interpreted by ED Provider?: Yes
Interpretation: abnormal
Rate: tachycardiac
Rhythm: a-fib
Ischemia: non-specific ST changes
*Canal Superintendent Interpretation
Rate: tachycardiac
Interpretation: abnormal
Rhythm: a-fib
*Critical Care Note
Total Time (30-74mins, 75-104mins- exclusive of procedures): 60-minutes
Data Reviewed
Review of Other/Old Records Reveals: Discharge Summary
Source: patient and family
Further Testing Considered But Not Given:
Consider CT of the chest but bedside ultrasound does show trace pericardial effusion and no clinical suspicion for PE
Patient Management
Discussion with other providers: Hospitalist
Escalation/DeEscalation of care consider admission/obs:
59-year-old female who presents with severe respiratory distress. Suspect COPD is the main cause of her dyspnea but does have rapid A-fib. Will rate control with diltiazem as she has missed her dose today for diltiazem. Also treated with steroids
and bronchodilators. She was given a trial of BiPAP but could not tolerate the mask. She does not have hypercapnia at this time but will watch closely. The patient does feel better on reassessment but does remain tachypneic. I do not see any JVD
or suspicion for cardiac tamponade. Bedside ultrasound does show pericardial effusion. Likely will benefit from echocardiogram
ED Attending Note
-
Portions of this chart may have been created with voice recognition software.� Occasional wrong word or��sound alike� substitutions may have occurred due to the inherent limitations of voice recognition software.
Discharge Plan
Departure
Patient Disposition: Admit
Date of Disposition: 09/12/24
Time of Disposition: 22:51
Admit to: IMU
Presentation/result/management discussed w/ accepting MD/DO: Hospitalist
Discharge Problem:
Acute exacerbation of chronic obstructive pulmonary disease (COPD), Acute pericardial effusion, Acute respiratory distress, Atrial fibrillation with RVR, Acute hyperglycemia
Interventions
Interventions:
*Risk Screen - Suicide Last Done: 09/12/24 20:41
*General Assessment Last Done: 09/12/24 20:41
*Neglect/Abuse Screening Last Done: 09/12/24 20:41
*ED COVID-19 Vaccine History Last Done: 09/12/24 20:41
*Nursing Disposition Last Done: 09/13/24 01:43
ED- Cardiac Assessment Last Done: 09/12/24 21:57
ED- Pulmonary Assessment Last Done: 09/12/24 21:57
Discharge Date and Time
Discharge Date/Time: 09/13/24 01:44
[2024-09-12 22:55] LABS: NT-proBNP 7370 pg/ml; Troponin I 0.042 ng/ml
[2024-09-12 23:01] VITALS: BP 137/110
[2024-09-12] MEDS: CARDIZEM 10 MG IV (23:03)
--- NOTE | 2024-09-12 23:29 | HPS.HSE ---
Family Physician
-
Family Physician: Iam David
Chief Complaint
-
Shortness of breath
History of Present Illness
This is a 59-year-old with history of COPD, proximal atrial fibrillation status post ablation, CHF with moderately reduced EF of around 45 to 50%, insulin-dependent diabetes who presents emergency department with exacerbation of cough and shortness
of breath.
Patient and family reported that she has been battling shortness of breath and cough for the last few weeks. She reported that about a month ago she had cough and shortness of breath and was prescribed a prednisone and a Z-Frandy. She appeared to
improve and was actually able to travel afterwards. When she came back about 2 weeks ago she started having worsening shortness of breath and dyspnea on exertion. She smoked 2 weeks ago. And she had not smoked for several weeks prior to that.
She has no known sick contacts. However she appears to have started having symptoms on the way back from a travel she has no fevers or chills. Patient denies having any palpitations lightheadedness or dizziness. She denies any lower extremity
edema. Patient was unable to take a medications including diltiazem and Eliquis this morning due to fatigue and breathing difficulties.
On arrival in the emergency department she was tachypneic and tachycardic and was immediately placed on BiPAP. Blood pressure was 145/90 she was tachycardic to the 150s she was afebrile and she was satting 96% on room air. Venous blood gas was
7.27/47 ECG shows cardiomegaly and what of multiple appearance to the heart. There is question of pericardial effusion. A bedside ultrasound does reveal moderate pericardial effusion without evidence of tamponade on the ultrasound. ECG shows
atrial fibrillation and rate of 140s. Troponin was negative. He BNP had increased to over 5000. White count was 13.8 hemoglobin 13.6 and a platelet count of 136. Chemistries were all within normal limits except for hyperglycemia to 300.
Medical History
Past Medical History
Past Medical History: Reports Arrhythmia (Paroxysmal atrial fibrillation status post ablation), CHF, COPD, HTN and IDDM
Past Surgical History: Reports None
Social History
Tobacco: Smoker
Alcohol: None
Drug: None
Personal: Single
Living: With Family
Employment: Not Employed
Family History
Family History: Not pertinent
Allergies / Home Medications
Allergies reflects when Allergies were last updated in [employer].
Home Medications with original date entered in [employer]
Allergy/Medication List:
Allergies
Allergy/AdvReac Type Severity Reaction Status Date / Time
No Known Allergies Allergy Verified 09/12/24 20:43
Home Medications
sertraline 100 mg tablet 100 mg PO DAILY Depression 01/30/18
metformin 500 mg tablet 1,000 mg PO BID Diabetes 12/30/21
umeclidinium 62.5 mcg-vilanterol 25 mcg/actuation powdr for inhalation (Anoro Ellipta) 1 inh inhalation R DAILY Lung/Breathing Issues 02/24/23
methimazole 5 mg tablet 5 mg PO DAILY hyperthyroidism 03/27/23
apixaban 5 mg tablet (Eliquis) 5 mg PO BID Blood Clot Prevention/Tx 04/09/24
atorvastatin 40 mg tablet 40 mg PO DAILY High Cholesterol 04/09/24
diltiazem HCl 240 mg capsule,extended release 24 hr 240 mg PO BID Blood Pressure 04/09/24
levalbuterol HCl 0.63 mg/3 mL solution for nebulization 0.63 mg inhalation R TIDPRN PRN wheezing/SOB 04/09/24
levalbuterol tartrate 45 mcg/actuation aerosol inhaler 2 puff inhalation R Q4HPRN PRN shortness of breath 04/09/24
pregabalin 150 mg capsule 150 mg PO BID Pain 04/09/24
roflumilast 500 mcg tablet (Daliresp) 500 mcg PO DAILY Lung/Breathing Issues 04/09/24
codeine 10 mg-guaifenesin 100 mg/5 mL oral liquid 5 ml PO Q4HPRN PRN cough #200 mL 04/13/24
insulin glargine 100 unit/mL (3 mL) subcutaneous pen (Lantus Solostar U-100 Insulin) 20 unit (0.2 mL) SC HS #15 mL 04/13/24
loratadine 10 mg tablet 10 mg PO DAILY 14 days #14 tabs 04/13/24
insulin aspart U-100 100 unit/mL (3 mL) subcutaneous pen (Novolog FlexPen U-100 Insulin aspart) 10 unit SC AC 09/12/24
Review of Systems
-
History Source: Patient
Constitutional: Reports No Symptoms
EENT: Reports No Symptoms
Respiratory: Reports Cough and Trouble Breathing
Cardiac: Reports No Symptoms
Abdomen/GI: Reports No Symptoms
: Reports No Symptoms
Musculoskeletal: Reports No Symptoms
Skin: Reports No Symptoms
Neurological: Reports No Symptoms
Endocrine: Reports No Symptoms
Hematologic/Lymphatic: Reports No Symptoms
Psych: Reports No Symptoms
Physical Exam
Vital Signs
Vital Signs
Temp Pulse Resp BP Pulse Ox
98.4 F 169 24 137/110 98
09/12/24 20:41 09/12/24 23:03 09/12/24 21:45 09/12/24 23:03 09/12/24 21:57
Physical Exam
General: Conversant and Appears in Distress
HEENT: NormoCephalic, Anicteric, Moist mucous membranes, Atraumatic and PERRLA
Respiratory: Clear
Cardiac: S1/S2 and Tachycardia
Breast: Deferred by me
GI: Soft
Rectal: Deferred by Provider
Genito-urinary: Deferred by me
Musculoskeletal: No Clubbing, No Cyanosis and No Edema
Skin: Warm
Neuro: AO x 3
Hematologic/Lymphatic: No Lymphadenopathy
Psych: Calm
Laboratory Results
-
09/12/24 20:58
09/12/24 20:58
Laboratory Results
Total Bilirubin 1.1 mg/dl (0.2-1.3) 09/12/24 20:58
AST 54 U/L (14-36) H 09/12/24 20:58
ALT 74 U/L (0-35) H 09/12/24 20:58
Alkaline Phosphatase 115 U/L (38-126) 09/12/24 20:58
Troponin I 0.042 ng/ml H* 09/12/24 21:47
Data Reviewed
-
Diagnostic Radiology: Image Personally Visualized and interpreted
Ultrasound: Discussed with Physician
Medical Tests (Nuc Med, Echo, EKG etc): Image Personally Visualized and interpreted
Lab Data: Labs Reviewed by me
Old Records: Reviewed
Impression/Plan
-
IMPRESSION:
Patient with history of COPD last admitted for COPD exacerbation in February and last treated for COPD exacerbation a month ago who comes in with cough and shortness of breath with severe respiratory distress. She is satting 90s on room air. On
arrival in the emergency department she was tripoding and pH was 7.27 with a bicarb of 47. She was initially trialed on BiPAP but could not tolerate it so that was discontinued and patient was given a 1 hour of levalbuterol. At the time I saw her
she had end expiratory wheezes but had good air movement especially indicated apical lobes. I did not hear any crackles on auscultation. ECG with rapid afib and possible alternans. Trop negative. BNP Elevated. No peripheral edema. No JVD.
Xray with pericardial effusion confirmed on bedside u/s by ED.
PLAN:
1. COPD exacerbation - Acute on chronic respiratory distress. Suspect primary process.
- admit to imu
- levalbuterol q 2 hours prn and q 4 hours standing
- solumedrol 40mg iv tid
- ceftriaxone 1 g daily
- oxygen to keep sat > 92%
- trial of bipap if work of breathing worsenes
- given degree of exacerbation will consult pulmonary
2. Pericardial Effusion - New pericardial effusion. Uncertain duration. Moderate size. No tamponade physiology currently. There is possibly mild pulmonary edema and elevated bmp. She is not complaining of chest pain suggestive of acute
pericarditis.
- treat copd as above
- rate control
- hold diuretics for now unless hypoxic
- obtain echo in am
- check inflammatory markers
- cardiology consult
3. Rapid AFIB - h/o pAFIB s/p ablation, on diltiazem at home which she didn't take today. Compliant with eliquis. Denies palpitations or dizziness
- diltiazem gtt for now
- continue eliquis first dose now
- cardiology consult
- npo for breakfast
4. DM II - insulin dependent diabetes and hyperglycemic
- 5 units aspart now
- continue lantus 20 hs now, aspart 10 tidac with moderate sliding scale.
6. Hyperthyroid -
- continue methimazole
- check tsh ft4
Code Status - Full Code
[2024-09-12 23:33] VITALS: BP 146/112
[2024-09-12] MEDS: CARDIZEM 125 IV (23:56)
[2024-09-13] VITALS (19 sets, daily range): BP systolic 102–159; BP diastolic 65–124; BMI 30.1
[2024-09-13] MEDS: ROCEPHIN 1000 MG IV (01:08)
[2024-09-13] MEDS: ELIQUIS 5 MG PO ×3 (01:08→20:23)
--- NOTE | 2024-09-13 01:55 | PTCARENOTE ---
Pt received from ED. Pt on 10mg/10ml/hr of cardizem gtt to maintain hr between 80-100. HR 110. Pt on 3L NC 02. Pt with frequent dry cough. Pharmacy contacted to send pts ordered cough medication/ walk med up to IMU. Pt satting 94%. Cough is not
productive. Call light in reach.
[2024-09-13 02:37] LABS: Glucose - Point of Care 282 mg/dl (70-99)
[2024-09-13] MEDS: SOLU-MEDROL PF 40 MG IV ×4 (03:42→20:23)
[2024-09-13 06:04] LABS: Glucose - Point of Care 300 mg/dl (70-99)
[2024-09-13] MEDS: NOVOLOG FLEXPEN-MODERATE RESISTANCE 7 UNITS SC ×2 (06:09→14:58)
[2024-09-13 06:27] LABS: Erythrocyte Sed Rate 13 mm/hour (0-20)
[2024-09-13 06:54] LABS: Blood Urea Nitrogen 36 mg/dl (7-17); Calcium 9.1 mg/dl (8.4-10.2); Carbon Dioxide 22 mmol/L (22-30); Chloride 103 mmol/L (98-107); Estimated Creatinine Clearance 103 ml/min; Glucose 325 mg/dl (70-99); Potassium 5.2 mmol/L (3.5-5.1); Sodium 138 mmol/L (135-145); eGFR > 60.00
[2024-09-13 07:30] LABS: TSH Reflex To Free T4 0.04 uIU/ml (0.47-4.68)
[2024-09-13] MEDS: ATROVENT NEBULES 0.5 MG INH ×3 (07:43→19:23)
[2024-09-13] MEDS: XOPENEX 1.25 MG INHALANT SOLUTION INH ×3 (07:43→19:23)
[2024-09-13 07:59] LABS: Free T4 1.35 ng/dl (0.78-2.19)
--- NOTE | 2024-09-13 08:15 | PTCARENOTE ---
Patient received from production supervisor off shift. Patient resting comfortably in bed. AAOx, VSS. No events noted overnight. MSAS currently a 0. No complaints of pain at this time. Currently on 3L N/C, will attempt to wean as tolerated. Scheduled to have
ECHO done today. Call brooke in reach.
[2024-09-13] MEDS: LYRICA 150 MG PO ×2 (08:18→20:23)
[2024-09-13] MEDS: DALIRESP 500 MCG PO (08:18)
[2024-09-13] MEDS: MUCINEX 600 MG PO ×2 (08:18→20:23)
[2024-09-13] MEDS: LIPITOR 40 MG PO (08:18)
[2024-09-13] MEDS: CLARITIN 10 MG PO (08:18)
[2024-09-13] MEDS: TAPAZOLE 5 MG PO (08:18)
[2024-09-13] MEDS: ZOLOFT 100 MG PO (08:18)
[2024-09-13] MEDS: ROBITUSSIN AC 10 ML PO ×4 (08:20→20:23)
--- NOTE | 2024-09-13 09:10 | CON.CAR ---
Addendum entered and electronically signed by Campbell Hartmann DO 09/13/24 12:17:
I saw and examined the patient.
The Oil Pipe Inspector Helper's note was reviewed and I agree with the note.
Comment:
Plan: Continue treatment and evaluation for multifactorial dyspnea
Continue wean O2 as able. She was not taking O2 prior to admission.
Pulmonary evaluating.
Rapid atrial fibrillation on arrival with history of paroxysmal A-fib status post ablation 2022. She remains asymptomatic.
Continue IV Cardizem and transition to oral Cardizem. She was on oral Cardizem as an outpatient. Avoiding beta-ramiro with COPD.
Continue Eliquis.
For now we will continue a rate control strategy in the setting of hyperthyroidism. She remains on methimazole.
Check echo to evaluate for pericardial effusion.
Discussed with primary service and nursing.
Original Note:
Consultation
Consultation Request
Date/Time Consultation Performed: 09/13/24
Requesting Provider: Dr. Culp
Performing Provider: Kaycee Poon PA-C for Dr. Hartmann
Reason for Consultation: afib
Medical History
-
Chief Complaint: SOB
History of Present Illness:
Patient is a 59 yo F with PMH of COPD, ongoing smoking, chronic HFpEF, paroxysmal afib s/p PVI/flutter ablation 2022, on chronic eliquis, HTN, HLD, DM2, cardiomyopathy EF 45-50% who presented to [facility] yesterday due to worsening SOB. She reports
breathing significantly worsened all of a sudden. States earlier this week she had been feeling great. Reports quit smoking ~2 weeks ago. She reports wheezing, night sweats, nonproductive cough. Denies weight gain, LE edema, fevers/chills, CP.
Initially required BIPAP. Found to be in rapid afib upon arrival. Patient asymptomatic which is typical of her atrial fibrillation. She reports compliance with eliquis. Was noted on CXR to have concern for cardiomegaly and 'water bag configuration'
with concern for pericardial effusion. Bedside ultrasound reportedly with mod effusion without evidence of tamponade. Cardiology consulted for evaluation.
PMH:
COPD
Chronic HFpEF
Cardiomyopathy EF 45-50%
PAF
history of PVI/flutter in 2022
Chronic OAC with eliquis
HTN
HLD
DM2
Hyperthyroidism
Depression/anxiety
Former smoker, quit 2 weeks ago
Past Medical History
Past Medical History: Other (in HPI)
Social History
Tobacco: Smoker (states quit 2 weeks ago)
Living: With Family
Employment: Not Employed
Family History
Family History: CAD, Cancer, Diabetes and Hypertension
Allergies / Home Medications
Allergy/AdvReac Type Severity Reaction Status Date / Time
No Known Allergies Allergy Verified 09/12/24 20:43
�Medication �Instructions �Recorded �Confirmed �Type
sertraline 100 mg tablet 100 mg PO DAILY Depression 01/30/18 09/12/24 History
metformin 500 mg tablet 1,000 mg PO BID Diabetes 12/30/21 09/12/24 History
umeclidinium 62.5 mcg-vilanterol 1 inh inhalation R DAILY 02/24/23 09/12/24 History
25 mcg/actuation powdr for Lung/Breathing Issues
inhalation (Anoro Ellipta)
methimazole 5 mg tablet 5 mg PO DAILY hyperthyroidism 03/27/23 09/12/24 History
apixaban 5 mg tablet (Eliquis) 5 mg PO BID Blood Clot 04/09/24 09/12/24 History
Prevention/Tx
atorvastatin 40 mg tablet 40 mg PO DAILY High Cholesterol 04/09/24 09/12/24 History
diltiazem HCl 240 mg 240 mg PO BID Blood Pressure 04/09/24 09/12/24 History
capsule,extended release 24 hr
levalbuterol HCl 0.63 mg/3 mL 0.63 mg inhalation R TIDPRN PRN 04/09/24 09/12/24 History
solution for nebulization wheezing/SOB
levalbuterol tartrate 45 2 puff inhalation R Q4HPRN PRN 04/09/24 09/12/24 History
mcg/actuation aerosol inhaler shortness of breath
pregabalin 150 mg capsule 150 mg PO BID Pain 04/09/24 09/12/24 History
roflumilast 500 mcg tablet 500 mcg PO DAILY Lung/Breathing 04/09/24 09/12/24 History
(Daliresp) Issues
codeine 10 mg-guaifenesin 100 mg/5 5 ml PO Q4HPRN PRN cough #200 mL 04/13/24 09/12/24 Rx
mL oral liquid
insulin glargine 100 unit/mL (3 20 unit (0.2 mL) SC HS #15 mL 04/13/24 09/12/24 Rx
mL) subcutaneous pen (Lantus
Solostar U-100 Insulin)
loratadine 10 mg tablet 10 mg PO DAILY 14 days #14 tabs 04/13/24 09/12/24 Rx
insulin aspart U-100 100 unit/mL 10 unit SC AC Diabetes 09/12/24 09/12/24 History
(3 mL) subcutaneous pen (Novolog
FlexPen U-100 Insulin aspart)
Review of Systems
-
History Source: Patient
All other systems: Negative unless noted
Physical Exam
Vital Signs
Temp Pulse Resp BP Pulse Ox
98.0 F 96 14 134/85 96
09/13/24 07:27 09/13/24 07:48 09/13/24 07:48 09/13/24 06:00 09/13/24 07:48
Lab Results
09/12/24 20:58
09/13/24 06:08
Troponin I 0.030 ng/ml 09/13/24 06:08
Zff-Q-Ktatnfnjbne Pept 7370 pg/ml 09/12/24 21:47
Physical Exam
General: No Apparent Distress, Comfortable and Other (on supp O2)
HEENT: Normocephalic, Anicteric and Moist Mucous Membranes
Respiratory: Wheezes and Non Labored Respirations
Cardiac: S1/S2 and Irregular Rhythm
GI: Soft, Non Tender, Non Distended and Normal Bowel Sounds
Musculoskeletal: No Clubbing, No Cyanosis and No Edema
Skin: Warm and Dry
Neuro: AO x 3
Impression / Plan
-
Primary Car Worker Helper: Dr. Hartmann
Assessment:
Presentation with SOB
Respiratory distress, initially requiring BIPAP
COPD exacerbation
Chronic HFpEF, possible acute exacerbation
Pericardial effusion by bedside US in ER 09/12/24
Cardiomyopathy EF 45-50% by echo 01/2024
PAF, now with RVR
history of PVI/flutter ablation in 2022
Chronic OAC with eliquis
HTN
HLD
DM2
Hyperthyroidism, Low TSH with compensated free T4 09/13/24
Depression/anxiety
Former smoker, quit 2 weeks ago
Elevated CRP
Hyperkalemia, mild
Mild LFT elevation
ECHO 02/14/24: EF 45 to 50%, abnormal paradoxical septal motion consistent with IVCD, no significant valvular disease
ECHO 09/13/24: pending
Plan:
-Patient presented with respiratory distress and SOB, initially requiring bipap.
-now weaned to supp O2, continue to wean as able. was not on supp O2 prior to admission
-treatment of COPD exacerbation per primary service. pulm also to follow
-patient was in rapid afib on arrival. has history of PAF s/p ablation in 2022. she is asymptomatic.
-continue IV cardizem, HRs presently ~100 BPM. likely rapid afib being driven by acute respiratory process. on po cardizem as OP. avoiding BB with COPD
-continue OP eliquis for now
-was noted to have pericardial effusion by CXR and bedside US in ER. for formal echo this morning to eval further. BPs stable.
-proBNP elevated at 7370 and CXR with evidence of some pulm edema. consider for diuresis pending echo results. not on diuretic prior to admission
-LFTs mildly elevated, holding statin
-TSH low at 0.04, however free T4 compensated. on methimazole as OP. adjustment in dosing per primary service
-may consider for AAD therapy, CV at some point pending hospital course
-d/w nursing
Data Reviewed
-
EKG: Tracing Personally Visualized and interpreted
Radiology: Report Reviewed by me
Medical Tests (Nuc Med, Echo etc): Report Reviewed by me
Labs: Labs Reviewed by me
Old Records: Reviewed
[2024-09-13 09:25] LABS: Magnesium 1.7 mg/dl (1.6-2.3)
[2024-09-13] MEDS: CARDIZEM 125 IV ×2 (09:32→21:16)
[2024-09-13] MEDS: NOVOLOG FLEXPEN-MODERATE RESISTANCE 5 UNITS SC (11:42)
[2024-09-13 11:52] LABS: Glucose - Point of Care 293 mg/dl (70-99)
[2024-09-13 12:31] LABS: Glycohemoglobin (HgbA1c) 8.8 % (4.0-5.6)
--- NOTE | 2024-09-13 13:58 | W.PN.HOSP.TC ---
Today's Communication/Plan
-
Continue steroids/nebulizer
Start on azithromycin, discontinue Rocephin
Start back on home dose of insulin
Echocardiogram report reviewed, no effusion
Wean off Cardizem per cardiology
Provide dose of Lokelma/IV Lasix for hyperkalemia
Assessment / Plan
Assessment / Plan
1. Acute hypoxic resp failure
COPD flare up
-Maintain on IV Solu-Medrol/nebulizer therapy
-Chest x-ray did not show any overt pneumonia
-Change Rocephin to oral azithromycin as part of COPD flareup regimen. QTc 425ms
2. Chronic systolic congestive heart failure
-Echocardiogram done in hospital did not show any large pericardial effusion
-Cardiology following and help appreciated
-Diuretics per cardiology
3. Parox afib/rvr
-being weaned off of diltiazem drip
-continue on eliquis
4 Hyperkalemia
-Provide IV Lasix 20 mg
-Provide dose of Lokelma 10mg
5. Type 2 diabetes mellitus
-Uncontrolled with need of steroid
-Patient put back on diet, resume back home regimen of NovoLog/Lantus
6. Hyperthyroidism
- cont methimazole
- TSH 0.04, Free T4 1.35
Essential hypertension
Hyperlipidemia
Chronic pain on lyrcia
Depression
DVT prophylaxis - eliquis
Code status: FULL CODE
Total time spent : 53 mins
Anticipated Discharge: 24 - 48 hours
Subjective/Interval History
-
Date of Service: September 13, 2024
Patient resting comfortably in bed
Heart rate is better controlled
Remains on oxygen through nasal cannula
No acute issues reported
Objective Data
-
Labs:
Laboratory Results
09/13/24
06:08
Sodium 138
Potassium 5.2 H
Chloride 103
Carbon Dioxide 22
BUN 36 H
Creatinine 0.6
Glucose 325 H
Calcium 9.1
Vital Signs:
Vital Signs
Temp Pulse Resp BP Pulse Ox
98.0 F 88 15 134/85 100
09/13/24 07:27 09/13/24 13:08 09/13/24 13:08 09/13/24 06:00 09/13/24 13:08
Review of Systems
-
Respiratory: Reports No Symptoms
Cardiac: Reports Palpitations
Abdomen/GI: Reports No Symptoms
Physical Exam
-
General: Well Developed and No Apparent Distress
HEENT: Normocephalic, Atraumatic and Moist Mucous Membranes
Respiratory: Clear to Auscultation
Cardiac: S1/S2 and Irregular Rhythm; Negative Murmur, Rub or Gallop
GI: Soft, Nontender and Normal Bowel Sounds; Negative Organomegaly
Rectal: Deferred by Provider
Musculoskeletal: No Edema
Skin: Negative Rash
Neuro: Nonfocal/Grossly Intact
[2024-09-13] MEDS: NOVOLOG FLEXPEN 10 UNITS SC (14:58)
[2024-09-13 15:07] LABS: Glucose - Point of Care 338 mg/dl (70-99)
--- NOTE | 2024-09-13 15:58 | CM ---
Patient with Dx Acute hypoxic resp failure, COPD flare up, Parox Afib w RVR, hyperkalemia. O2 3L. Plan echo today. Receiving Cardizem gtt, IV Steroids. MSAS 2.
Spoke with patient who resides with her and son in a 2 story townhouse with 3 ANA.
The patient has been independent in ADLs and ambulation.
DME - nebulizer
VN - prior [facility]
SNF - none
PCP - Hemant David
Pharmacy - [facility]
Plan watch for any home O2 needs.
Plan home.
[2024-09-13] MEDS: LASIX 20 MG IV (16:02)
[2024-09-13] MEDS: ZITHROMAX 250 MG PO (16:04)
[2024-09-13] MEDS: LOKELMA 10 GRAM PO (16:04)
--- NOTE | 2024-09-13 16:18 | PTCARENOTE ---
Attempted to wean patient on Cardizem gtt down to 5mg/hr, did not tolerate as HR was 130's - 140's at times. Turned Cardizem gtt back to 10 mg/hr.
[2024-09-13 17:52] LABS: Glucose - Point of Care 224 mg/dl (70-99)
[2024-09-13] MEDS: GLUCOPHAGE 1000 MG PO (18:40)
[2024-09-13] MEDS: NOVOLOG FLEXPEN 12 UNITS SC (18:40)
[2024-09-13] MEDS: ALPRAZOLAM ODT 0.25 MG PO (18:40)
[2024-09-13] MEDS: LANTUS 0.2 UNITS SC (21:30)
[2024-09-13 21:37] LABS: Glucose - Point of Care 217 mg/dl (70-99)
[2024-09-14] VITALS (14 sets, daily range): BP systolic 86–154; BP diastolic 60–116; BMI 29.8
[2024-09-14] MEDS: SOLU-MEDROL PF 40 MG IV ×4 (01:25→20:04)
[2024-09-14] MEDS: ROBITUSSIN AC 10 ML PO ×5 (01:25→22:38)
--- NOTE | 2024-09-14 02:08 | PTCARENOTE ---
assumed care of patient, pt is AAOx3- able to make needs known. VSS. no complaints of pain. cardizem gtt infusing without issues. HR 70s-130s. pt a little anxious, refusing PRN xanax at this time. cough noted, taking PRN cough medication per MAR.
care ongoing.
[2024-09-14 04:31] LABS: Hemoglobin 12.2 g/dL (12.0-16.0); Mean Corp Hgb Conc. 33.9 g/dL (33.0-37.0); Mean Corpuscular Hgb 31.1 pg (27.0-31.0); Mean Corpuscular Volume 91.8 fL (81.0-99.0); Mean Platelet Volume 12.1 fL (7.4-10.4); Platelet Count 115 10^3/uL (130-400); Red Blood Cell Count 3.92 10^6/uL (4.20-5.40); Red Cell Dist. Width 15.6 % (11.5-14.5); White Blood Cell Count 11.7 10^3/uL (4.8-10.8)
[2024-09-14 04:40] LABS: ALT (SGPT) 57 U/L (0-35); AST (SGOT) 31 U/L (14-36); Albumin 3.6 g/dl (3.5-5.0); Alkaline Phosphatase 88 U/L (38-126); Blood Urea Nitrogen 51 mg/dl (7-17); Calcium 8.9 mg/dl (8.4-10.2); Carbon Dioxide 27 mmol/L (22-30); Chloride 98 mmol/L (98-107); Estimated Creatinine Clearance 68 ml/min; Glucose 367 mg/dl (70-99); Potassium 4.4 mmol/L (3.5-5.1); Sodium 134 mmol/L (135-145); Total Bilirubin 0.5 mg/dl (0.2-1.3); Total Protein 5.6 g/dl (6.3-8.2); eGFR > 60.00
[2024-09-14] MEDS: ATROVENT NEBULES 0.5 MG INH ×3 (07:22→19:26)
[2024-09-14] MEDS: XOPENEX 1.25 MG INHALANT SOLUTION INH ×3 (07:22→19:26)
--- NOTE | 2024-09-14 07:49 | W.PN.HOSP.TC ---
Today's Communication/Plan
-
.
Assessment / Plan
Assessment / Plan
Ms. Sirena Butt is a 59yoF pmh HFrEF (LVEF 40-45%), paroxysmal afib, aflutter, COPD, HTN, DM type 2, HLD, GERD, anxiety admitted 09/12 for an acute exacerbation of COPD.
Acute hypoxic respiratory failure
COPD exacerbation
- levalbuterol, solumedrol
- ceftriaxone
- keep SpO2 >92%
- bipap
- pulm consulted
New-onset pericardial effusion
HFrEF
Leukocytosis
- no tamponade physiology currently
- troponins trending downward
- elevated proBNP 7370
- CXR: Mild cardiomegaly. Progressed. Water bag configuration. Pericardial effusion cannot be excluded. New mild cephalization. This can be seen with pulmonary edema.
- echo (09/13): LVEF 40-45%, mild concentric LV hypertrophy, mild TR, trivial pericardial effusion
- leukocytosis, elevated CRP 44.9
- keep Mg>2, K>4
- daily weights, I's & O's
- hold diuretics
Afib, aflutter s/p ablation
- ECG: aflutter w variable AV block w PVCs
- wean IV cardizem, resume PO
- eliquis
Hyperkalemia
- resolved w lokelma, lasix 20mg given
- repeat cmp
Transaminitis
- monitor CMP
DM type II
- cont novolog/lantus, metformin
- POC glucose 300s
- HbA1c 8.8
HTN / HLD
- cont diltiazem, statin
Hyperthyroidism
- TSH 0.04, Free T4 1.35
- cont methimazole. Increased from 2.5mg to 5mg August 27. TSH likely low due to lag in lab values s/p med change
Chronic pain
L flank/back pain
- cont lyrica
- muscle relaxer
Depression
- cont sertraline
DVT prophylaxis
- eliquis
Code status: FULL CODE
Diet: NPO
Anticipated Discharge: 24 - 48 hours
Subjective/Interval History
-
Date of Service: September 14, 2024
Ms. Sirena Butt is a 59yoF h HFrEF (LVEF 40-45%), paroxysmal afib, aflutter, COPD, HTN, DM type 2, HLD, GERD, anxiety admitted 09/12 for an acute exacerbation of COPD. Dyspnea has improved. +nonproductive cough. Complains of L flank pain present
for the past two years. +numbness, +parasthesias, -weakness. Pt is interested in trying muscle relaxers, otherwise the next step is she will 'do surgery on [her]self'
Objective Data
-
Labs:
Laboratory Results
09/14/24
03:58
WBC 11.7 H
Hgb 12.2
Hct 36.0 L
Plt Count 115 L
Sodium 134 L
Potassium 4.4
Chloride 98
Carbon Dioxide 27
BUN 51 H
Creatinine 0.9
Glucose 367 H
Calcium 8.9
Total Bilirubin 0.5
AST 31
ALT 57 H
Alkaline Phosphatase 88
Vital Signs:
Vital Signs
Temp Pulse Resp BP Pulse Ox
97.3 F 100 14 106/74 96
09/14/24 04:33 09/14/24 07:24 09/14/24 07:24 09/14/24 06:00 09/14/24 07:24
I&O
09/13/24 09/14/24 09/15/24
06:59 06:59 06:59
Intake Total 600 / 600
Balance 600 / 600
Review of Systems
-
History Source: Patient
All other systems: Reviewed and negative
Constitutional: Reports No Symptoms
EENT: Reports No Symptoms Reported
Respiratory: Reports Cough and Trouble Breathing
Cardiac: Reports No Symptoms
Abdomen/GI: Reports No Symptoms
Genitourinary: Reports No Symptoms
Musculoskeletal: Reports Muscle Pain; Denies Muscle Weakness
Neuro: Reports No Symptoms
Physical Exam
-
General: Well Developed, Well Nourished and Conversant
HEENT: Normocephalic, Atraumatic, Moist Mucous Membranes and Oxygen (2L O2 nasal cannula)
Respiratory: Wheezes and Accessory Resp Muscle Use
Cardiac: S1/S2 and Irregular Rhythm
GI: Soft, Nontender, Nondistended and Normal Bowel Sounds
Genito-urinary: No Costovertebral Tender
Musculoskeletal: No Clubbing, No Cyanosis and Other (L serratus anterior tenderness.)
Skin: Warm, Dry and Other ( Lump on L paramedial T11. Soft, mobile.); Negative Rash
Neuro: Awake and AO x 3
Psych: Calm
[2024-09-14 08:10] LABS: Glucose - Point of Care 355 mg/dl (70-99)
[2024-09-14] MEDS: NOVOLOG FLEXPEN 10 UNITS SC ×2 (08:13→12:35)
[2024-09-14] MEDS: NOVOLOG FLEXPEN-MODERATE RESISTANCE 9 UNITS SC (08:13)
[2024-09-14] MEDS: ALPRAZOLAM ODT 0.25 MG PO ×2 (08:14→18:28)
[2024-09-14] MEDS: ELIQUIS 5 MG PO ×2 (08:14→20:03)
[2024-09-14] MEDS: GLUCOPHAGE 1000 MG PO ×2 (08:14→17:37)
[2024-09-14] MEDS: LYRICA 150 MG PO ×2 (08:14→20:04)
[2024-09-14] MEDS: ZITHROMAX 250 MG PO (08:15)
[2024-09-14] MEDS: CLARITIN 10 MG PO (08:15)
[2024-09-14] MEDS: MUCINEX 600 MG PO ×2 (08:15→20:04)
[2024-09-14] MEDS: LIPITOR 40 MG PO (08:15)
[2024-09-14] MEDS: ZOLOFT 100 MG PO (08:15)
[2024-09-14] MEDS: TAPAZOLE 5 MG PO (08:15)
[2024-09-14] MEDS: DALIRESP 500 MCG PO (08:15)
[2024-09-14 08:41] LABS: Magnesium 1.8 mg/dl (1.6-2.3)
[2024-09-14] MEDS: MAGNESIUM SULFATE 100 IV (10:05)
[2024-09-14] MEDS: CARDIZEM 125 IV ×2 (10:07→23:48)
--- NOTE | 2024-09-14 12:05 | CM ---
Patient with Dx Acute hypoxic resp failure, COPD flare up, Parox Afib w RVR. Receiving Cardizem gtt, IV Steroids, IV Magnesium. MSAS 2.
CM Consult: Disability
Met with patient and ; patient and say that they are interested in the patient applying for social security disability due to chronic back pain. The patient has not been working for 10 yrs. Patient/ asking how to apply-
explained they need to go to ssa.gov and apply/complete an application. They will need to discuss with PCP who would sign the disability forms. They may need to have a phone or in-person appt with a SS Office.
Patient states she has ambulated in the room while here without difficulty.
Plan home.
[2024-09-14 12:28] LABS: Glucose - Point of Care 321 mg/dl (70-99)
[2024-09-14] MEDS: NOVOLOG FLEXPEN-MODERATE RESISTANCE 7 UNITS SC (12:33)
--- NOTE | 2024-09-14 12:53 | W.PN.CARDCBS ---
Addendum entered and electronically signed by Eder Daley DO 09/14/24 16:36:
I saw and examined the patient.
The Pet Adoption Counselor's note was reviewed and I agree with the note.
Comment:
Mild hypervolemia; remains on supplemental O2 (not previously on this at home) and reporting mild abdominal distension no LE edema
Additional IV diuresis, monitor renal function; transition to oral diuretic 24-48h
Possible addition of ACEi/ARB in AM if renal function
Resume oral rate control, wean gtt
Wean O2 as tolerated
Hyperthyroid treatment per primary
Original Note:
Today's Communication / Plan
-
IV lasix
follow Cr
lisinopril in AM pending BP/Cr
wean off IV cardizem, po cardizem resumed tonight
adjustment in methimazole per primary service
Impression / Plan
-
Primary Mid Level Provider: Dr. Hartmann
Assessment:
Presentation with SOB
Respiratory distress, initially requiring BIPAP
COPD exacerbation
Chronic HFpEF, possible acute exacerbation
Pericardial effusion by bedside US in ER 09/12/24
Cardiomyopathy EF 45-50% by echo 01/2024
PAF, now with RVR
history of PVI/flutter ablation in 2022
Chronic OAC with eliquis
HTN
HLD
DM2
Hyperthyroidism, Low TSH with compensated free T4 09/13/24
Depression/anxiety
Former smoker, quit 2 weeks ago
Elevated CRP
Hyperkalemia, mild
Mild LFT elevation
ECHO 02/14/24: EF 45 to 50%, abnormal paradoxical septal motion consistent with IVCD, no significant valvular disease
ECHO 09/13/24: EF 40 to 45%, global hypokinesis with regional variability, mild concentric LVH, mild TR, PAP 37 mmHg, trivial pericardial effusion, no significant change compared to prior
Plan:
-Patient presented with respiratory distress and SOB, initially requiring bipap.
-now weaned to supp O2, continue to wean as able. was not on supp O2 prior to admission
-proBNP elevated at 7370. s/p IV lasix 20mg 09/13. BUN/Cr higher today. consider IV lasix again today and follow renal function
-treatment of COPD exacerbation per primary service.
-patient presented in rapid afib. has history of PAF s/p ablation in 2022. she is asymptomatic. HRs ~100BPM on IV cardizem at 10. likely afib being driven by acute respiratory process and hyperthyroid state (TSH 0.04, on methimazole as OP). continue
rate control strategy for now. avoiding BB with COPD. on po cardizem cd 240mg BID as OP, will resume and attempt to wean off IV cardizem.
-continue OP eliquis
-echo with EF 40-45% and trivial pericardial effusion. consider addition of lisinopril in AM given CM and diabetes pending Cr.
-LFTs improving, possibly passive congestion. consider resuming
-TSH low at 0.04, however free T4 compensated. on methimazole as OP. adjustment in dosing per primary service
-d/w patient and at bedside
Progress Note - Mid Level Provider
Subjective
Date of Service: September 14, 2024
reports breathing improving
Objective
Labs:
09/14/24 03:58
09/14/24 03:58
Labs
Hgb 12.2 g/dL (12.0-16.0) 09/14/24 03:58
Hct 36.0 % (37.0-47.0) L 09/14/24 03:58
Plt Count 115 10^3/uL (130-400) L 09/14/24 03:58
Sodium 134 mmol/L (135-145) L 09/14/24 03:58
Potassium 4.4 mmol/L (3.5-5.1) 09/14/24 03:58
BUN 51 mg/dl (7-17) H 09/14/24 03:58
Creatinine 0.9 mg/dL (0.6-1.0) 09/14/24 03:58
Glucose 367 mg/dl (70-99) H 09/14/24 03:58
Troponins
09/12/24 09/13/24
21:47 06:08
Troponin I 0.042 H* 0.030
Vital Signs and I&O:
Vital Signs
Temp Pulse Resp BP Pulse Ox
97.4 F 121 15 111/86 97
09/14/24 11:43 09/14/24 11:00 09/14/24 11:00 09/14/24 10:04 09/14/24 11:00
Vital Signs
Temp Pulse Resp BP Pulse Ox
97.4 F 121 15 111/86 97
09/14/24 11:43 09/14/24 11:00 09/14/24 11:00 09/14/24 10:04 09/14/24 11:00
Intake & Output
09/12/24 09/13/24 09/14/24 09/15/24
07:59 07:59 07:59 07:59
Intake Total 600 / 600
Balance 600 / 600
Physical Exam
Physical Exam
GEN: No distress, awake, alert, oriented x3. on supp O2. tachypneic
HEENT: supple, anicteric, mmm, eomi
LUNGS: Diminished breath sounds, no wheezes
CV: Irreg, S1/S2, no murmur
ABD: soft, BS+, NT/ND
EXT: No cyanosis, clubbing, edema
NEURO: Gross non-focal
SKIN: Warm, pink, dry. No rash
[2024-09-14] MEDS: FLEXERIL 5 MG PO ×2 (15:08→22:37)
[2024-09-14] MEDS: TUMS CHEWABLE TABLET 200 MG PO (15:08)
[2024-09-14] MEDS: LASIX 20 MG IV (15:10)
[2024-09-14 17:19] LABS: Glucose - Point of Care 123 mg/dl (70-99)
--- NOTE | 2024-09-14 17:23 | PTCARENOTE ---
Assumed care for patient during the day. Received report via RN. Pt AAOx3, some anxiety. VSS. Sinus tachycardia up to the 140's. Cardizem gtt continued. Began PO cardizem see orders. Lungs dimished with slight inspiratory wheeze. Dry occasional
cough. Pt denies SOB. Pt requested to speak to pillowcase maker. senior operations manager came to bedside. Pt able to make needs known. Pt has call brooke within reach.
[2024-09-14] MEDS: NOVOLOG FLEXPEN 13 UNITS SC (17:34)
[2024-09-14] MEDS: NOVOLOG FLEXPEN-MODERATE RESISTANCE SC (17:34)
[2024-09-14] MEDS: CARDIZEM CD 240 MG PO (20:03)
[2024-09-14] MEDS: LANTUS 0.25 UNITS SC (22:38)
[2024-09-14 22:46] LABS: Glucose - Point of Care 121 mg/dl (70-99)
[2024-09-15] VITALS (13 sets, daily range): BP systolic 113–154; BP diastolic 72–123; PULSE 107–116; O2SAT 97; BMI 30.6
--- NOTE | 2024-09-15 02:30 | PTCARENOTE ---
Assumed care of pt from previous RN. Pt AAOx3, HR elevated, see documentation. Abhinav gtt at 10 upon initial assessment, this RN titrated per protocol. Pt denies pain/discomfort, states that she can 'never feel it' when her HR is elevated. Pt able
to ambulate with assistx1 to bathroom to void. HR does increase with ambulation, but returns to baseline once in bed. DBP elevated >100 throughout shift. Call brooke within reach. Pt rings appropriately.
[2024-09-15] MEDS: SOLU-MEDROL PF 40 MG IV ×3 (02:42→17:48)
[2024-09-15 06:04] LABS: ALT (SGPT) 60 U/L (0-35); AST (SGOT) 29 U/L (14-36); Albumin 4.3 g/dl (3.5-5.0); Alkaline Phosphatase 89 U/L (38-126); Blood Urea Nitrogen 65 mg/dl (7-17); Calcium 10.2 mg/dl (8.4-10.2); Carbon Dioxide 30 mmol/L (22-30); Chloride 93 mmol/L (98-107); Estimated Creatinine Clearance 57 ml/min; Glucose 202 mg/dl (70-99); Magnesium 2.1 mg/dl (1.6-2.3); Potassium 4.4 mmol/L (3.5-5.1); Sodium 133 mmol/L (135-145); Total Bilirubin 0.6 mg/dl (0.2-1.3); Total Protein 6.4 g/dl (6.3-8.2); eGFR 57.88
[2024-09-15 06:09] LABS: Hematocrit 37.3 % (37.0-47.0); Hemoglobin 12.8 g/dL (12.0-16.0); Mean Corp Hgb Conc. 34.3 g/dL (33.0-37.0); Mean Corpuscular Hgb 31.1 pg (27.0-31.0); Mean Corpuscular Volume 90.8 fL (81.0-99.0); Mean Platelet Volume 11.9 fL (7.4-10.4); Platelet Count 144 10^3/uL (130-400); Red Blood Cell Count 4.11 10^6/uL (4.20-5.40); Red Cell Dist. Width 15.3 % (11.5-14.5); White Blood Cell Count 13.3 10^3/uL (4.8-10.8)
--- NOTE | 2024-09-15 07:22 | W.PN.CARDCBS ---
Addendum entered and electronically signed by Eder Daley DO 09/15/24 09:32:
I saw and examined the patient.
The Licensed Physical Therapy Assistant's note was reviewed and I agree with the note.
Comment:
Resting comfortably in bed, improved breathing, remains on supplemental O2
No evidence of volume overload on exam; renal function increasing over past 2 days; hold Lasix, no further diuresis. 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
Wean/DC cardizem gtt, continue oral cardizem 240 mg BID
OAC with eliquis
Hyperthyroid management per primary service
Original Note:
Today's Communication / Plan
-
No further IV lasix
Continue Cardizem CD 240mg BID
Wean cardizem gtt as able
Continue Eliquis for anticoagulation
Impression / Plan
-
Primary Last Sawyer: Dr. Hartmann
Assessment:
Presentation with SOB
Respiratory distress, initially requiring BIPAP
COPD exacerbation
Chronic HFpEF, possible acute exacerbation
Pericardial effusion by bedside US in ER 09/12/24
Cardiomyopathy EF 45-50% by echo 01/2024
PAF, now with RVR
history of PVI/flutter ablation in 2022
Chronic OAC with eliquis
HTN
HLD
DM2
Hyperthyroidism, Low TSH with compensated free T4 09/13/24
Depression/anxiety
Former smoker, quit 2 weeks ago
Elevated CRP
Hyperkalemia, mild
Mild LFT elevation
ECHO 02/14/24: EF 45 to 50%, abnormal paradoxical septal motion consistent with IVCD, no significant valvular disease
ECHO 09/13/24: EF 40 to 45%, global hypokinesis with regional variability, mild concentric LVH, mild TR, PAP 37 mmHg, trivial pericardial effusion, no significant change compared to prior
Plan:
-Patient presented with respiratory distress and SOB, initially requiring bipap. Admitted with COPD exacerbation, rapid afib, and possible acute HF exacerbation.
-Diuresed with IV lasix. Weight up overnight, however is bed scale weight, so unclear accuracy.
-BUN/Cr higher again 09/15. Would stop IV lasix. Not on diuretic prior to admission. Denies any improvement in symptoms w/ lasix.
-Echo 09/13 with EF 40-45%. Would follow renal function for now and consider addition of lisinopril.
-In rapid atrial fibrillation on arrival. Likely being driven by hyperthyroid state. Continue rate control for now. HR remains slightly elevated.
-On cardizem gtt @ 5 and Cardizem 240 mg BID started in PM 09/14. Will wean cardizem gtt as able.
-Continue Eliquis for anticoagulation.
-Continue methimazole per primary service.
-Continue treatment of COPD per primary service.
-On 3L NC, wean as able.
-Follow up arranged.
Progress Note - Last Sawyer
Subjective
Date of Service: September 15, 2024
Feeling well. No complaints.
Objective
Labs:
09/15/24 05:30
09/15/24 05:30
Labs
Hgb 12.8 g/dL (12.0-16.0) 09/15/24 05:30
Hct 37.3 % (37.0-47.0) 09/15/24 05:30
Plt Count 144 10^3/uL (130-400) D 09/15/24 05:30
Sodium 133 mmol/L (135-145) L 09/15/24 05:30
Potassium 4.4 mmol/L (3.5-5.1) 09/15/24 05:30
BUN 65 mg/dl (7-17) H 09/15/24 05:30
Creatinine 1.1 mg/dL (0.6-1.0) H 09/15/24 05:30
Glucose 202 mg/dl (70-99) H 09/15/24 05:30
Troponins
09/12/24 09/13/24
21:47 06:08
Troponin I 0.042 H* 0.030
Vital Signs and I&O:
Vital Signs
Temp Pulse Resp BP Pulse Ox
97.8 F 97 14 114/74 94
09/15/24 04:26 09/15/24 06:00 09/15/24 06:00 09/15/24 06:00 09/15/24 06:00
Vital Signs
Temp Pulse Resp BP Pulse Ox
97.8 F 97 14 114/74 94
09/15/24 04:26 09/15/24 06:00 09/15/24 06:00 09/15/24 06:00 09/15/24 06:00
Intake & Output
09/13/24 09/14/24 09/15/24 09/16/24
06:59 06:59 06:59 06:59
Intake Total 600 / 600 240 / 240
Balance 600 / 600 240 / 240
Physical Exam
Physical Exam
GEN: No distress, awake, alert, oriented x3. on supp O2
HEENT: supple, anicteric, mmm, eomi
LUNGS: CTA b/l, no wheezes
CV: Irreg, S1/S2, no murmur
EXT: No cyanosis, clubbing, edema
NEURO: Gross non-focal
SKIN: Warm, pink, dry. No rash
[2024-09-15] MEDS: ATROVENT NEBULES 0.5 MG INH ×3 (08:07→19:08)
[2024-09-15] MEDS: XOPENEX 1.25 MG INHALANT SOLUTION INH ×3 (08:08→19:08)
[2024-09-15 08:13] LABS: Glucose - Point of Care 217 mg/dl (70-99)
--- NOTE | 2024-09-15 08:30 | W.PN.HOSP.TC ---
Today's Communication/Plan
-
See note
Assessment / Plan
Assessment / Plan
1. Acute hypoxic resp failure
COPD flare up
-Maintain on IV Solu-Medrol/nebulizer therapy
-Chest x-ray did not show any overt pneumonia
-Change Rocephin to oral azithromycin as part of COPD flareup regimen. QTc 425ms
-Patient wheezing is improved, decrease methylprednisolone to 40 mg every 8 hours.
2. Chronic systolic congestive heart failure
-Echocardiogram done in hospital did not show any large pericardial effusion
-Cardiology following and help appreciated
-patient weight 81kg, repeat check requested
-got IV lasix 20mg x2 doses this admit, will provide repeat dosing if weight truly elevated
-Minimal renal function elevation with creatinine 1.1, yesterday was 0.9.
3. Parox afib/rvr
-continue on eliquis
-Heart rate is better controlled on Cardizem drip, was able to be weaned off to 5 mg/h
4 Hyperkalemia
-improved post lasix/lokelma
5. Type 2 diabetes mellitus
-Uncontrolled with need of steroid
-Increasing dose of lantus and pre-meal novolog.
6. Hyperthyroidism
- continue methimazole - dose increased last week sep.
- Will need approximately 4 to 6 weeks for TSH to achieve
- TSH 0.04, Free T4 1.35
7. Chronic back pain
-getting FALLON of thoracic L spine
-significant workup neg OP basis
-on lyrica 150mg/bid, adding flexeril
Essential hypertension
Hyperlipidemia
Chronic pain on lyrcia
Depression
DVT prophylaxis - eliquis
Code status: FULL CODE
PT OT evaluation ordered
Anticipated Discharge: 24 - 48 hours
Subjective/Interval History
-
Date of Service: September 15, 2024
Patient resting comfortably in bed
Pain improved with muscle relaxant/pain medication
Oxygen requirement stable overnight
Heart rate better controlled and rate of 90s on dilt drip
Objective Data
-
Labs:
Laboratory Results
09/15/24
05:30
WBC 13.3 H
Hgb 12.8
Hct 37.3
Plt Count 144 D
Sodium 133 L
Potassium 4.4
Chloride 93 L
Carbon Dioxide 30
BUN 65 H
Creatinine 1.1 H
Glucose 202 H
Calcium 10.2
Total Bilirubin 0.6
AST 29
ALT 60 H
Alkaline Phosphatase 89
Vital Signs:
Vital Signs
Temp Pulse Resp BP Pulse Ox
97.8 F 94 20 114/74 96
09/15/24 04:26 09/15/24 08:11 09/15/24 08:11 09/15/24 06:00 09/15/24 08:11
I&O
09/14/24 09/15/24 09/16/24
06:59 06:59 06:59
Intake Total 600 / 600 240 / 240
Balance 600 / 600 240 / 240
Review of Systems
-
Respiratory: Reports No Symptoms
Cardiac: Reports No Symptoms
Abdomen/GI: Reports No Symptoms
Physical Exam
-
General: No Apparent Distress and Comfortable
HEENT: Oxygen (4L NC)
Respiratory: Wheezes
Cardiac: S1/S2, Irregular Rhythm and Tachycardic; Negative Murmur or Rub
GI: Soft, Nontender and Nondistended
Musculoskeletal: No Edema
Neuro: Awake, Alert, Oriented, No Motor Deficits and Nonfocal/Grossly Intact
Psych: Calm
[2024-09-15] MEDS: ALPRAZOLAM ODT 0.25 MG PO ×2 (09:44→22:49)
[2024-09-15] MEDS: FLEXERIL 5 MG PO ×2 (09:45→22:49)
[2024-09-15] MEDS: TUMS CHEWABLE TABLET 200 MG PO ×2 (09:45→17:37)
[2024-09-15] MEDS: LYRICA 150 MG PO ×2 (09:47→20:01)
[2024-09-15] MEDS: ELIQUIS 5 MG PO ×2 (09:47→20:00)
[2024-09-15] MEDS: ZITHROMAX 250 MG PO (09:48)
[2024-09-15] MEDS: DALIRESP 500 MCG PO (09:48)
[2024-09-15] MEDS: CLARITIN 10 MG PO (09:48)
[2024-09-15] MEDS: LIPITOR 40 MG PO (09:48)
[2024-09-15] MEDS: ZOLOFT 100 MG PO (09:48)
[2024-09-15] MEDS: ZESTRIL 2.5 MG PO (09:48)
[2024-09-15] MEDS: GLUCOPHAGE 1000 MG PO ×2 (09:48→17:48)
[2024-09-15] MEDS: CARDIZEM CD 240 MG PO ×2 (09:48→20:02)
[2024-09-15] MEDS: TAPAZOLE 5 MG PO (09:48)
[2024-09-15] MEDS: MUCINEX 600 MG PO ×2 (09:48→20:01)
[2024-09-15] MEDS: NOVOLOG FLEXPEN 13 UNITS SC ×3 (09:49→17:37)
[2024-09-15] MEDS: NOVOLOG FLEXPEN-MODERATE RESISTANCE 3 UNITS SC ×3 (09:50→17:38)
[2024-09-15] MEDS: SOLU-MEDROL PF IV (09:56)
[2024-09-15 12:00] LABS: Glucose - Point of Care 222 mg/dl (70-99)
[2024-09-15] MEDS: ROBITUSSIN AC 10 ML PO ×2 (12:08→22:49)
--- NOTE | 2024-09-15 15:31 | PTCARENOTE ---
Pt presents as assessed. Aox3. OOB to chair with PT. Afib on tele monitor. Rates 90's to low 100's. Sating mid 90's on 3L NC. Abhinav gtt d/c per orders. MSAS completed per protocol- see intervention. Able to make needs known, call brooke within
reach.
[2024-09-15 17:11] LABS: Glucose - Point of Care 201 mg/dl (70-99)
[2024-09-15 22:07] LABS: Glucose - Point of Care 356 mg/dl (70-99)
[2024-09-15] MEDS: LANTUS 0.25 UNITS SC (22:49)
[2024-09-15] MEDS: NOVOLOG FLEXPEN 9 UNITS SC (22:49)
[2024-09-16] VITALS (11 sets, daily range): BP systolic 84–137; BP diastolic 65–89; BMI 30.8
[2024-09-16] MEDS: SOLU-MEDROL PF 40 MG IV ×2 (01:09→09:09)
[2024-09-16 01:16] LABS: Glucose - Point of Care 281 mg/dl (70-99)
[2024-09-16] MEDS: TUMS CHEWABLE TABLET 200 MG PO ×3 (03:52→18:46)
[2024-09-16] MEDS: ROBITUSSIN AC 10 ML PO ×2 (03:53→20:00)
[2024-09-16 06:20] LABS: Hemoglobin 13.3 g/dL (12.0-16.0); Mean Corp Hgb Conc. 33.3 g/dL (33.0-37.0); Mean Corpuscular Hgb 30.5 pg (27.0-31.0); Mean Corpuscular Volume 91.7 fL (81.0-99.0); Mean Platelet Volume 11.3 fL (7.4-10.4); Platelet Count 163 10^3/uL (130-400); Red Blood Cell Count 4.36 10^6/uL (4.20-5.40); Red Cell Dist. Width 15.3 % (11.5-14.5)
[2024-09-16 06:55] LABS: ALT (SGPT) 49 U/L (0-35); AST (SGOT) 29 U/L (14-36); Albumin 4.3 g/dl (3.5-5.0); Alkaline Phosphatase 72 U/L (38-126); Blood Urea Nitrogen 52 mg/dl (7-17); Calcium 10.2 mg/dl (8.4-10.2); Carbon Dioxide 29 mmol/L (22-30); Chloride 94 mmol/L (98-107); Estimated Creatinine Clearance 78 ml/min; Glucose 210 mg/dl (70-99); Magnesium 1.9 mg/dl (1.6-2.3); Potassium 5.1 mmol/L (3.5-5.1); Sodium 136 mmol/L (135-145); Total Bilirubin 0.7 mg/dl (0.2-1.3); Total Protein 6.6 g/dl (6.3-8.2); eGFR > 60.00
[2024-09-16] MEDS: ATROVENT NEBULES 0.5 MG INH ×3 (07:44→20:02)
[2024-09-16] MEDS: XOPENEX 1.25 MG INHALANT SOLUTION INH ×3 (07:44→20:02)
[2024-09-16 07:54] LABS: Glucose - Point of Care 256 mg/dl (70-99)
[2024-09-16] MEDS: GLUCOPHAGE 1000 MG PO (09:09)
[2024-09-16] MEDS: ZITHROMAX 250 MG PO (09:09)
[2024-09-16] MEDS: CARDIZEM CD 240 MG PO ×2 (09:10→20:01)
[2024-09-16] MEDS: ZESTRIL 2.5 MG PO (09:10)
[2024-09-16] MEDS: DALIRESP 500 MCG PO (09:10)
[2024-09-16] MEDS: MUCINEX 600 MG PO ×2 (09:10→20:03)
[2024-09-16] MEDS: ZOLOFT 100 MG PO (09:11)
[2024-09-16] MEDS: LIPITOR 40 MG PO (09:11)
[2024-09-16] MEDS: LYRICA 150 MG PO ×2 (09:11→20:03)
[2024-09-16] MEDS: CLARITIN 10 MG PO (09:11)
[2024-09-16] MEDS: TAPAZOLE 5 MG PO (09:11)
[2024-09-16] MEDS: ELIQUIS 5 MG PO ×2 (09:12→20:01)
[2024-09-16] MEDS: FLEXERIL 5 MG PO ×2 (10:04→20:03)
[2024-09-16] MEDS: ALPRAZOLAM ODT PO (10:05)
[2024-09-16] MEDS: NOVOLOG FLEXPEN-MODERATE RESISTANCE 5 UNITS SC (10:05)
[2024-09-16] MEDS: NOVOLOG FLEXPEN 13 UNITS SC (10:06)
--- NOTE | 2024-09-16 10:21 | W.PN.HOSP.TC ---
Today's Communication/Plan
-
see note
possible discharge tomorrow
Assessment / Plan
Assessment / Plan
1. Acute hypoxic resp failure
COPD flare up
-Maintain on IV Solu-Medrol/nebulizer therapy
-Chest x-ray did not show any overt pneumonia
-Change Rocephin to oral azithromycin as part of COPD flareup regimen. QTc 425ms
-Transition patient IV solumedrol to prednisone 40mg/d
2. Chronic systolic congestive heart failure
-Echocardiogram done in hospital did not show any large pericardial effusion
-Cardiology following and help appreciated
-patient weight 81kg, repeat check requested
-Renal function normalized.
-Cardiology input noted and no indication for further diuretics.
3. Parox afib/rvr
-continue on eliquis
-patient has been transitioned to oral diltiazem 240mg/bid
4 Hyperkalemia - improved
-improved post lasix/lokelma
-maintain on low K diet
5. Type 2 diabetes mellitus
-Uncontrolled with need of steroid
-Increasing dose of lantus and pre-meal novolog.
6. Hyperthyroidism
- continue methimazole - dose increased last week sep.
- Will need approximately 4 to 6 weeks for TSH to achieve
- TSH 0.04, Free T4 1.35
7. Chronic back pain
-getting FALLON of thoracic L spine
-significant workup neg OP basis
-on lyrica 150mg/bid, adding flexeril
Essential hypertension
Hyperlipidemia
Chronic pain on lyrcia
Depression
DVT prophylaxis - eliquis
Code status: FULL CODE
PT OT recommended HH
Anticipated Discharge: Within 24 hours
Subjective/Interval History
-
Date of Service: September 16, 2024
resting comfortably in bed
o2 been wenaed off and on 2L currently
have some secretion
afebrile in night
HR in 90-110 range on oral meds
Objective Data
-
Labs:
Laboratory Results
09/16/24
05:49
WBC 11.0 H
Hgb 13.3
Hct 40.0
Plt Count 163
Sodium 136
Potassium 5.1
Chloride 94 L
Carbon Dioxide 29
BUN 52 H
Creatinine 0.8
Glucose 210 H
Calcium 10.2
Total Bilirubin 0.7
AST 29
ALT 49 H
Alkaline Phosphatase 72
Vital Signs:
Vital Signs
Temp Pulse Resp BP Pulse Ox
97.8 F 86 15 115/87 94
09/16/24 07:50 09/16/24 09:10 09/16/24 08:00 09/16/24 09:10 09/16/24 07:47
I&O
09/15/24 09/16/24 09/17/24
06:59 06:59 06:59
Intake Total 240 / 240
Balance 240 / 240
Review of Systems
-
Respiratory: Reports No Symptoms
Cardiac: Reports No Symptoms
Abdomen/GI: Reports No Symptoms
Physical Exam
-
General: No Apparent Distress and Comfortable
HEENT: Oxygen (2L NC)
Respiratory: Wheezes
Cardiac: S1/S2, Irregular Rhythm and Tachycardic; Negative Murmur or Rub
GI: Soft, Nontender and Nondistended
Musculoskeletal: No Edema
Neuro: Awake, Alert, Oriented, No Motor Deficits and Nonfocal/Grossly Intact
Psych: Calm
--- NOTE | 2024-09-16 11:21 | W.PN.CARDCBS ---
Today's Communication / Plan
-
Euvolemic on exam, no further diuretic at this time
AF rate controlled with PO cardizem; monitor on telemetry
Wean O2 as tolerated
Impression / Plan
-
Primary Referral Nurse: Dr. Hartmann
Assessment:
Presentation with SOB
Respiratory distress, initially requiring BIPAP, improved
COPD exacerbation
Chronic HFpEF, possible acute exacerbation, euvolemic now
Pericardial effusion by bedside US in ER 09/12/24
Cardiomyopathy EF 45-50% by echo 01/2024
PAF, now with RVR, improved back to oral cardizem
history of PVI/flutter ablation in 2022
Chronic OAC with eliquis
HTN
HLD
DM2
Hyperthyroidism, Low TSH with compensated free T4 09/13/24
Depression/anxiety
Former smoker, quit 2 weeks ago
Elevated CRP
Hyperkalemia, mild
Mild LFT elevation
ECHO 02/14/24: EF 45 to 50%, abnormal paradoxical septal motion consistent with IVCD, no significant valvular disease
ECHO 09/13/24: EF 40 to 45%, global hypokinesis with regional variability, mild concentric LVH, mild TR, PAP 37 mmHg, trivial pericardial effusion, no significant change compared to prior
Plan:
-Patient presented with respiratory distress and SOB, initially requiring bipap. Admitted with COPD exacerbation, rapid afib, and possible acute HF exacerbation.
-BUN/Cr higher again 09/15. Denies any improvement in symptoms w/ lasix; euvolemic
-Echo 09/13 with EF 40-45%. Would follow renal function for now and consider addition of lisinopril.
-In rapid atrial fibrillation on arrival. Likely being driven by hyperthyroid state; cardizem gtt off, on home Cardizem 240 mg BID started in PM 09/14. rate controlled
-Continue Eliquis for anticoagulation.
-Continue methimazole per primary service.
-Continue treatment of COPD per primary service.
-On 3L NC, wean as able.
-No further recommendations at this time, will sign off; please call with questions. follow up arranged.
Progress Note - Referral Nurse
Subjective
Date of Service: September 16, 2024
Patient seen and examined. No acute events overnight. Patient resting comfortably, notes mild sob. No cp, palpitations, edema, or weakness. Tele AF rate controlled.
Objective
Labs:
09/16/24 05:49
09/16/24 05:49
Labs
Hgb 13.3 g/dL (12.0-16.0) 09/16/24 05:49
Hct 40.0 % (37.0-47.0) 09/16/24 05:49
Plt Count 163 10^3/uL (130-400) 09/16/24 05:49
Sodium 136 mmol/L (135-145) 09/16/24 05:49
Potassium 5.1 mmol/L (3.5-5.1) 09/16/24 05:49
BUN 52 mg/dl (7-17) H 09/16/24 05:49
Creatinine 0.8 mg/dL (0.6-1.0) 09/16/24 05:49
Glucose 210 mg/dl (70-99) H 09/16/24 05:49
Vital Signs and I&O:
Vital Signs
Temp Pulse Resp BP Pulse Ox
97.8 F 86 15 115/87 94
09/16/24 07:50 09/16/24 09:10 09/16/24 08:00 09/16/24 09:10 09/16/24 07:47
Vital Signs
Temp Pulse Resp BP Pulse Ox
97.8 F 86 15 115/87 94
09/16/24 07:50 09/16/24 09:10 09/16/24 08:00 09/16/24 09:10 09/16/24 07:47
Intake & Output
09/14/24 09/15/24 09/16/24 09/17/24
06:59 06:59 06:59 06:59
Intake Total 600 / 600 240 / 240
Balance 600 / 600 240 / 240
Physical Exam
Physical Exam
GEN: No distress, awake, alert, oriented x3. on supp O2
HEENT: supple, anicteric, mmm, eomi
LUNGS: CTA b/l, mild wheezes
CV: Irreg, S1/S2, no murmur
EXT: No cyanosis, clubbing, edema
NEURO: Gross non-focal
SKIN: Warm, pink, dry. No rash
[2024-09-16 11:45] LABS: Glucose - Point of Care 191 mg/dl (70-99)
[2024-09-16] MEDS: ALPRAZOLAM ODT 0.25 MG PO ×2 (13:03→20:03)
[2024-09-16] MEDS: NOVOLOG FLEXPEN-MODERATE RESISTANCE 1 UNITS SC (13:57)
[2024-09-16] MEDS: NOVOLOG FLEXPEN 16 UNITS SC (13:58)
[2024-09-16 16:13] LABS: Glucose - Point of Care 98 mg/dl (70-99)
[2024-09-16] MEDS: NOVOLOG FLEXPEN-MODERATE RESISTANCE SC (18:39)
[2024-09-16] MEDS: NOVOLOG FLEXPEN SC (18:39)
[2024-09-16] MEDS: GLUCOPHAGE PO (18:40)
--- NOTE | 2024-09-16 18:46 | PTCARENOTE ---
pt with pre-dinner accucheck 98. she has decided not to eat; complaints of dyspepsia. sliding scale coverage not indicated. mealtime coverage not indicated. scheduled metformin not given as patient will not be eating. Prn TUMS given. Pt on
corticosteroid 40 mg daily. Takes pantoprazole as needed at home. Not ordered while inpatient. Cross-coverage hospitalist notified. Continuing to monitor.
[2024-09-16] MEDS: PROTONIX 40 MG PO (20:03)
[2024-09-16 22:19] LABS: Glucose - Point of Care 190 mg/dl (70-99)
[2024-09-16] MEDS: LANTUS 0.25 UNITS SC (22:22)
[2024-09-17] VITALS (8 sets, daily range): BP systolic 92–129; BP diastolic 55–77; BMI 30.4
--- NOTE | 2024-09-17 05:26 | PTCARENOTE ---
Pt slept well overnight, no issues to report. Pt is hopeful to be discharged today. pt remains on 2 LO2 NC. Pt ambulatory to bathroom independently. Denies any complaints. Vital signs stable. Will continue to monitor.
[2024-09-17 05:39] LABS: Hematocrit 43.2 % (37.0-47.0); Hemoglobin 14.4 g/dL (12.0-16.0); Mean Corp Hgb Conc. 33.3 g/dL (33.0-37.0); Mean Corpuscular Hgb 30.7 pg (27.0-31.0); Mean Corpuscular Volume 92.1 fL (81.0-99.0); Mean Platelet Volume 11.2 fL (7.4-10.4); Platelet Count 160 10^3/uL (130-400); Red Blood Cell Count 4.69 10^6/uL (4.20-5.40); Red Cell Dist. Width 15.4 % (11.5-14.5); White Blood Cell Count 13.3 10^3/uL (4.8-10.8)
[2024-09-17 06:10] LABS: Blood Urea Nitrogen 35 mg/dl (7-17); Calcium 10.5 mg/dl (8.4-10.2); Carbon Dioxide 30 mmol/L (22-30); Chloride 96 mmol/L (98-107); Estimated Creatinine Clearance 78 ml/min; Glucose 160 mg/dl (70-99); Potassium 4.6 mmol/L (3.5-5.1); Sodium 137 mmol/L (135-145); eGFR > 60.00
[2024-09-17] MEDS: XOPENEX 1.25 MG INHALANT SOLUTION INH ×2 (07:22→14:05)
[2024-09-17] MEDS: ATROVENT NEBULES 0.5 MG INH ×2 (07:22→14:05)
[2024-09-17 08:38] LABS: Glucose - Point of Care 183 mg/dl (70-99)
[2024-09-17] MEDS: NOVOLOG FLEXPEN 16 UNITS SC (08:43)
[2024-09-17] MEDS: GLUCOPHAGE 1000 MG PO (08:44)
[2024-09-17] MEDS: ELIQUIS 5 MG PO (08:44)
[2024-09-17] MEDS: LYRICA 150 MG PO (08:44)
[2024-09-17] MEDS: MUCINEX 600 MG PO (08:44)
[2024-09-17] MEDS: PROTONIX 40 MG PO (08:44)
[2024-09-17] MEDS: NOVOLOG FLEXPEN-MODERATE RESISTANCE 1 UNITS SC (08:44)
[2024-09-17] MEDS: ZOLOFT 100 MG PO (08:44)
[2024-09-17] MEDS: DELTASONE 40 MG PO (08:44)
[2024-09-17] MEDS: DALIRESP 500 MCG PO (08:44)
[2024-09-17] MEDS: CLARITIN 10 MG PO (08:44)
[2024-09-17] MEDS: ZITHROMAX 250 MG PO (08:44)
[2024-09-17] MEDS: CARDIZEM CD 240 MG PO (08:45)
[2024-09-17] MEDS: TAPAZOLE 5 MG PO (08:45)
[2024-09-17] MEDS: ZESTRIL 2.5 MG PO (08:45)
[2024-09-17] MEDS: LIPITOR 40 MG PO (08:45)
[2024-09-17] MEDS: FLEXERIL 5 MG PO (08:49)
[2024-09-17] MEDS: ALPRAZOLAM ODT 0.25 MG PO (08:49)
[2024-09-17] MEDS: ROBITUSSIN AC 10 ML PO (08:50)
[2024-09-17] MEDS: NOVOLOG FLEXPEN SC (12:15)
[2024-09-17] MEDS: NOVOLOG FLEXPEN-MODERATE RESISTANCE SC (12:15)
[2024-09-17 12:20] LABS: Glucose - Point of Care 35 mg/dl (70-99)
[2024-09-17 12:56] LABS: Glucose - Point of Care 80 mg/dl (70-99)
--- NOTE | 2024-09-17 13:07 | PTCARENOTE ---
Patient with blood sugar of 35 for lunch time. Pt reports symptoms of tiredness and pt observed to be shaking. Pt was just walking in hallway with RT just prior to check. Pt drank fruit juice and blood sugar improvement to 80, see blood sugar
flowsheet. Patient also ordered lunch. Pt will be rechecked approx 2:30 per protocol. made aware and made adjustments to insulin.
--- NOTE | 2024-09-17 14:15 | CM ---
Home O2 Assessment done.
Message from Dr Evans; he is ordered home O2 2L continuous.
Met with patient who was preparing for d/c home today. The patient says she feels ready to go home. She agrees to home O2 through [employer] and understands concentrator tank will be delivered to her house and portable O2 delivered to her room. Her
is working til 3:30pm and will provide transport home. Offered VN and patient declining.
Met with Wicho Noble; referral sent via [employer] and prescription for O2 provided. Aide delivered portable O2 to patient room. Patient can be discharged anytime today and call for home O2 delivery when she arrives home.
Plan home today with home O2 through [employer].
[2024-09-17 15:09] LABS: Glucose - Point of Care 85 mg/dl (70-99)
--- NOTE | 2024-09-17 15:10 | W.PN.HOSP.TC ---
Today's Communication/Plan
-
ACEI
Pred taper
wean o2 outpatient - will be dced on 2L
f/u pcp, pulmonary, cardiology outpatient
Assessment / Plan
Assessment / Plan
1. Acute hypoxic resp failure
COPD flare up
-Maintain on IV Solu-Medrol/nebulizer therapy
-Chest x-ray did not show any overt pneumonia
-Change Rocephin to oral azithromycin as part of COPD flareup regimen. QTc 425ms
-Transition patient IV solumedrol to prednisone 40mg taper
-f/u pulmonary outpatient
-DC with 2L o2 - wean o2 outpatient
Patient is in need of oxygen at 2 liters/minute via nasal cannula continuously due to pulse oximetry of 88% on room air at rest. Oxygen will help to improve hypoxemia. Patient is mobile within the home. DuoNeb therapy has been tried and is
ineffective in treating hypoxemia related symptoms. Oxygen is needed to improve symptoms.
2. Chronic systolic congestive heart failure
-Echocardiogram done in hospital did not show any large pericardial effusion
-Cardiology following and help appreciated
-patient weight 81kg, repeat check requested
-Renal function normalized.
-Cardiology input noted and no indication for further diuretics.
-add ACEI
3. Parox afib/rvr
-continue on eliquis
-patient has been transitioned to oral diltiazem 240mg/bid
4 Hyperkalemia - improved
-improved post lasix/lokelma
-maintain on low K diet
5. Type 2 diabetes mellitus
-Uncontrolled with need of steroid
-Increasing dose of lantus; novolog.
-f/u outpatient
6. Hyperthyroidism
- continue methimazole - dose increased last week sep.
- Will need approximately 4 to 6 weeks for TSH to achieve
- TSH 0.04, Free T4 1.35
7. Chronic back pain
-getting FALLON of thoracic L spine
-significant workup neg OP basis
-on lyrica 150mg/bid, adding flexeril
Essential hypertension
Hyperlipidemia
Chronic pain on lyrcia
Depression
DVT prophylaxis - eliquis
Code status: FULL CODE
More than 30 minutes spent in discharge including
Final examination of the patient
Summarizing hospital stay
Instructions for continuing care to all relevant caregivers
Preparation of discharge records, prescriptions, and referral forms
Total time spent (35 in minutes):
Anticipated Discharge: Today
Subjective/Interval History
-
Date of Service: September 17, 2024
symptoms much improved; no wheezing on auscultation
Objective Data
-
Labs:
Laboratory Results
09/17/24
05:01
WBC 13.3 H
Hgb 14.4
Hct 43.2
Plt Count 160
Sodium 137
Potassium 4.6
Chloride 96 L
Carbon Dioxide 30
BUN 35 H
Creatinine 0.8
Glucose 160 H
Calcium 10.5 H
Vital Signs:
Vital Signs
Temp Pulse Resp BP Pulse Ox
97.7 F 87 16 106/62 97
09/17/24 07:35 09/17/24 14:06 09/17/24 14:06 09/17/24 10:00 09/17/24 14:06
I&O
09/16/24 09/17/24 09/18/24
06:59 06:59 06:59
Intake Total 480 / 480
Balance 480 / 480
Review of Systems
-
History Source: Patient
All other systems: Not reviewed unless documented
Physical Exam
-
General: No Apparent Distress and Comfortable
HEENT: Oxygen (2L NC)
Respiratory: Wheezes
Cardiac: S1/S2, Irregular Rhythm and Tachycardic; Negative Murmur or Rub
GI: Soft, Nontender and Nondistended
Musculoskeletal: No Edema
Neuro: Awake, Alert, Oriented, No Motor Deficits and Nonfocal/Grossly Intact
Psych: Calm
Data Reviewed
-
Diagnostic Radiology: Image personally visualized and interpreted and Report Reviewed by me
Labs: Labs Reviewed by me
--- NOTE | 2024-09-17 15:15 | W.DS.TRANS ---
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
-
Discharge Instructions:
Sleep Apnea Risk Intermediate
Discharge Diagnosis/Procedures Acute COPD exacerbation
Diet Diabetic, Carb Controlled,Restrict fluids to 48
oz,Low Fat,Low Cholesterol,2 Gram Sodium
Activity As tolerated
Driving Restrictions As prior to admission
Bathing Restrictions None
Blood Work [id number] per PCP; F/u CBC, BMP in 5-7 days with
pcp
Others Tests PFTs outpatient
Instructions: Chronic Obstructive Pulmonary Disease (COPD) (DC)
Exacerbation of COPD (DC)
Breathing Exercises
Pulmonary rehabilitation
Stand-Alone Forms:
Changes to Home Medications: Yes
Discharge Medications:
DC Medications w/original date entered in [facility]
sertraline 100 mg tablet 100 mg PO DAILY Depression 01/30/18
metformin 500 mg tablet 1,000 mg PO BID Diabetes 12/30/21
umeclidinium 62.5 mcg-vilanterol 25 mcg/actuation powdr for inhalation (Anoro Ellipta) 1 inh inhalation R DAILY Lung/Breathing Issues 02/24/23
methimazole 5 mg tablet 5 mg PO DAILY hyperthyroidism 03/27/23
apixaban 5 mg tablet (Eliquis) 5 mg PO BID Blood Clot Prevention/Tx 04/09/24
atorvastatin 40 mg tablet 40 mg PO DAILY High Cholesterol 04/09/24
diltiazem HCl 240 mg capsule,extended release 24 hr 240 mg PO BID Blood Pressure 04/09/24
levalbuterol HCl 0.63 mg/3 mL solution for nebulization 0.63 mg inhalation R TIDPRN PRN wheezing/SOB 04/09/24
levalbuterol tartrate 45 mcg/actuation aerosol inhaler 2 puff inhalation R Q4HPRN PRN shortness of breath 04/09/24
pregabalin 150 mg capsule 150 mg PO BID Pain 04/09/24
roflumilast 500 mcg tablet (Daliresp) 500 mcg PO DAILY Lung/Breathing Issues 04/09/24
codeine 10 mg-guaifenesin 100 mg/5 mL oral liquid 5 ml PO Q4HPRN PRN cough #200 mL 04/13/24
loratadine 10 mg tablet 10 mg PO DAILY 14 days #14 tabs 04/13/24
insulin aspart U-100 100 unit/mL (3 mL) subcutaneous pen (Novolog FlexPen U-100 Insulin aspart) 10 unit SC AC Diabetes 09/12/24
insulin glargine 100 unit/mL (3 mL) subcutaneous pen (Lantus Solostar U-100 Insulin) 22 unit (0.22 mL) SC HS #15 mL 09/17/24
lisinopril 2.5 mg tablet 2.5 mg PO DAILY 30 days #30 tabs 09/17/24
prednisone 10 mg tablet See Rx Instructions .Route .COMPLEX #30 tabs 09/17/24
Home Medication Changes
lisinopril 2.5 mg tablet 2.5 mg PO DAILY 30 days #30 tabs 09/17/24
prednisone 10 mg tablet See Rx Instructions .Route .COMPLEX #30 tabs 09/17/24
Pending Results: No
[2024-09-17 16:52] LABS: Glucose - Point of Care 168 mg/dl (70-99)
== END 2024-09-17 18:20 | disposition home or self-care (01) | DRG 191 ==
LOC: IMU 23:49
PROVIDERS: Emergency Medicine; Hospitalist; ADMITTING PHYSICIAN Internal Medicine; ATTENDING PHYSICIAN Internal Medicine; EMERGENCY PHYSICIAN Emergency Medicine; FAMILY PHYSICIAN Family Medicine; OTHER PHYSICIAN Nuclear Medicine Nuclear Cardiology
PROC: 5A09357 Assistance with Respiratory Ventilation, Less than 24 Consecutive Hours, Continuous Positive Airway Pressure (ICD-10-PCS; 2024-09-12)
DX: J44.1 Chronic obstructive pulmonary disease with (acute) exacerbation (principal); I42.9 Cardiomyopathy, unspecified; I50.32 Chronic diastolic (congestive) heart failure; I11.0 Hypertensive heart disease with heart failure; E05.90 Thyrotoxicosis, unspecified without thyrotoxic crisis or storm; E11.65 Type 2 diabetes mellitus with hyperglycemia; F32.A Depression, unspecified; E78.00 Pure hypercholesterolemia, unspecified; E87.5 Hyperkalemia; F17.200 Nicotine dependence, unspecified, uncomplicated; F41.9 Anxiety disorder, unspecified; I48.0 Paroxysmal atrial fibrillation; K21.9 Gastro-esophageal reflux disease without esophagitis; R09.02 Hypoxemia; R06.03 Acute respiratory distress; R79.82 Elevated C-reactive protein (CRP); Z79.01 Long term (current) use of anticoagulants; Z79.4 Long term (current) use of insulin; Z79.84 Long term (current) use of oral hypoglycemic drugs; Z79.899 Other long term (current) drug therapy
CPT/HCPCS: 71045; 80048; 80053; 82805; 82962; 83036; 83735; 83880; 84439; 84443; 84484; 85025; 85027; 85652; 86140; 87502; 87811; 93005; 93306; 94640; 94660; 96365; 96366; 96375; 97162; 97166; 99291

== ENCOUNTER → 2024-09-28 09:22 | Day surgery (SDC) | payer BC, SELFPAY ==
--- NOTE | 2024-09-28 10:48 | ITS.CL.CARDI ---
Arranging Funeral Director - Cardioversion
Cardioversion
Procedure Report:
Date of Procedure: 09/28/24
Procedure: Cardioversion
Indication: Symptomatic atrial flutter
Performing Physician: Anmol Barraza MD
Technique: The patient was brought to the holding area. Signed informed consent was obtained. A time out was called and performed. The patient was anesthetized by the anesthesia service. Anticoagulation status was reviewed and appropriate. R2 pads
were placed anteriorly and posteriorly. A 200 J synchronized biphasic shock restored normal sinus rhythm without significant bradycardia. There were no complications.
Conclusion: Uncomplicated cardioversion from atrial flutter to sinus rhythm.
Recommendation: Routine post cardioversion care. Continue watermelon inspector anticoagulation.
== END ==
LOC: CATH 09:22
PROVIDERS: ATTENDING PHYSICIAN Internal Medicine Cardiovascular Disease; FAMILY PHYSICIAN Family Medicine; OTHER PHYSICIAN Nuclear Medicine Nuclear Cardiology
DX: I48.92 Unspecified atrial flutter (principal); Z79.01 Long term (current) use of anticoagulants; I11.0 Hypertensive heart disease with heart failure; I50.32 Chronic diastolic (congestive) heart failure; I10 Essential (primary) hypertension; E11.9 Type 2 diabetes mellitus without complications; J44.9 Chronic obstructive pulmonary disease, unspecified; F17.210 Nicotine dependence, cigarettes, uncomplicated
CPT/HCPCS: 92960; 93005

== ENCOUNTER 2025-01-13 21:33 | Inpatient (IN) | payer BC, SELFPAY ==
[2025-01-13] VITALS (25 sets, daily range): BP systolic 68–109; BP diastolic 35–62; BMI 26.9
--- NOTE | 2025-01-13 18:04 | ED.GENMED ---
History of Present Illness
General
Chief Complaint: Fall
Time Seen by Provider: 01/13/25 17:56
History of Present Illness
History of Present Illness:
Patient is a 59-year-old woman with history of COPD, A-fib on Eliquis, hypertension, hyperlipidemia presenting to the emergency department after a fall. Patient states for the past week she has had a cough. Yesterday she felt a little weak. Today
she tried to get up out of bed when she fell and hit her head on the dresser. She did not lose consciousness. She is on Eliquis. Since the fall she remains a week which has been ongoing since yesterday. No isolated weakness to one extremity. No
nausea vomiting. No diarrhea. No recent sick contacts. No trauma elsewhere.
Past History
Past History
ED Past Medical History: COPD, GERD, HTN, Hypercholesterolemia, NIDDM, Psychiatric (Anxiety, Depression) and Other (Sciatica)
ED Past Surgical History: Bowel resection, , Orthopedic (Left and right hip replacements) and Other (Deviated septum)
Social History
Tobacco: Smoker
Alcohol: Occasional
Personal:
Living: with family
Family History
Family History: Negative Early CAD
Phy Exam
Physical Exam
Physical Exam:
GENERAL: no acute distress
HEENT: atraumatic, extraocular muscles intact, no signs of entrapment, dentition intact, no other obvious trauma
NECK: no midline tenderness, normal range of motion, no other obvious trauma
BACK: no midline tenderness, no other obvious trauma
CHEST: no tenderness, no flail segment, no subcutaneous emphysema, no other obvious trauma
LUNGS: Crackles at the left lower base with wheezing in all lung reilly
CARDIOVASCULAR: regular rate and rhythm
ABDOMEN: soft, non-tender, no masses, no other obvious trauma
PELVIS: stable, no obvious injury
EXTREMITIES: moving all extremities, distal pulses intact, no other obvious trauma
NEUROLOGIC: awake, alert x 3, no focal deficits
Sepsis
Sepsis Screening
Sepsis Assessment: Septic Shock
Sepsis Screening: Lactate >2mmol/L, Hypotension, Sustained Hypotension-SBP <90,MAP<65, or SBP decrease 40mmHg or more and Vasopressor support required
Sepsis Screen
Sepsis Screen: Septic Shock
Date: 01/13/25
Time: 18:02
Course
Orders/Labs/Results
Orders:
Orders
01/13/25 17:43
CT Cervical Spine W/o Iv Contr Urgent
Comment:
Reason For Exam: head injury, on Eliquis
CT Head W/o Iv Contrast Urgent
Comment:
Reason For Exam: head injury, on Eliquis
01/13/25 17:48
Electrocardiogram (*1) Urgent
Reason for Study: Fatigue / Weakness
EKG- Treatment ONCE
01/13/25 17:58
Complete Blood Count/With Diff Urgent
Comprehensive Metabolic Panel Urgent
Manual Differential Urgent
01/13/25 18:03
Urinalysis Reflex To Culture Urgent
Dexamethasone Sod Phosphate [Decadron] 10 mg IV NOW STA
Ipratropium/Albuterol Sulfate [Duoneb] 3 ml INH R NOW ONE
CR Chest - 2 Views Urgent
Comment:
Reason For Exam: sob
01/13/25 18:13
COVID-19 Antigen Urgent
Source: Nasal Swab
Influenza A+B Rapid Molecular Urgent
TUYET Source: Nasal Swab
Specimen Description:
01/13/25 18:16
0.9% Sodium Chloride 1000 ml [Nss] 1,000 ml IV BOLUS
01/13/25 18:21
Azithromycin 500 mg/250 ml [Zithromax Infusion] 500 mg in 250 ml IV NOW
CefTRIAXone [Rocephin] 1,000 mg IV NOW STA
01/13/25 18:34
Lactic Acid Urgent
Blood Culture Q30M
TUYET Source: Blood/Venous
Specimen Description:
01/13/25 18:35
Blood Culture Q30M
TUYET Source: Blood/Venous
Specimen Description:
01/13/25 18:44
Lactated Ringers [Lr] 1,000 ml IV BOLUS
01/13/25 20:06
NORepinephrine INF (STD CONC) NOW X 1 BAG NORepinephrine 4 MG/250 ML [Levophed] 4 mg in 250 ml IV NOW
Initial dose in mcg/min, then titrate:: 2
Titrate to keep:: MAP > 65 mmHg
Titrate by mcg/min:: 1-2 mcg/min
Frequency of titrations (minutes):: 5
Maximum dose in ICU in mcg/min:: 30
Maximum dose in IMU in mcg/min:: 8
Maximum dose in IVU in mcg/min:: 4
Begin to taper infusion when:: Remained at goal for 4hrs
Taper by mcg/min:: 1-2 mcg/min
Frequency of taper (minutes) if patient maintains goal:: 30
Taper to off?: Yes
If infusion off & no longer maintaining goal:: Contact Provider
Abnormal Lab Results
01/13/25 01/13/25
17:58 18:34
WBC 30.9 H 10^3/uL
(4.8-10.8)
RBC 4.12 L 10^6/uL
(4.20-5.40)
MCH 32.0 H pg
(27.0-31.0)
RDW 17.9 H %
(11.5-14.5)
MPV 12.2 H fL
(7.4-10.4)
Abs Neuts (Manual) 29.3 H 10^3/uL
(1.4-6.5)
Segmented Neutrophils 84 H %
(42-75)
Band Neutrophils 11 H %
(0-3)
Lymphocytes (Manual) 5 L %
(20-51)
Sodium 132 L mmol/L
(135-145)
Carbon Dioxide 16 L mmol/L
(22-30)
BUN 63 H mg/dl
(7-17)
Creatinine 3.0 H mg/dL
(0.6-1.0)
Glucose 127 H mg/dl
(70-99)
Lactic Acid 3.8 H mmol/L
(0.7-2.0)
01/13/25 17:58
01/13/25 17:58
Vital Signs
Initial and Last Documented VS:
Initial Vital Signs
Temp Pulse Resp BP Pulse Ox
97.7 F 91 16 83/57 92
01/13/25 17:34 01/13/25 17:34 01/13/25 17:34 01/13/25 17:34 01/13/25 17:34
Last Documented Vital Signs
Temp Pulse Resp BP Pulse Ox
97.6 F 83 19 71/49 93
01/13/25 19:30 01/13/25 20:00 01/13/25 20:00 01/13/25 20:00 01/13/25 20:00
MDM/Problems Addressed
Differential Diagnosis Includes:
Patient is a 59-year-old woman with history of COPD, A-fib on Eliquis presenting to the emergency department with weakness cough and a fall today. Vitals are notable for hypotension with a blood pressure of 83/57 and she is hypoxic to 88% on room
air. She is not tachypneic. On exam she does not have any signs of outward trauma but does have crackles and wheezing in her lung reilly. Concern for traumatic intracranial injury after the fall given the head strike on Eliquis. Otherwise
concern for pneumonia versus COPD exacerbation. Could be viral illness. Considered PE given hypoxia and hypotension however patient is on Eliquis and has not missed any doses. Will check blood work EKG chest x-ray as well as COVID and flu swab.
Will give nebulizer treatment and steroids.
*Critical Care Note
Total Time (30-74mins, 75-104mins- exclusive of procedures): Not Applicable
Update Note
Update Note:
Blood work is notable for leukocytosis as well as bandemia. Will give empiric antibiotics. Lactate added on. It is elevated. She has received a 30 cc/kg fluid resuscitation for sepsis. Chest x-ray per my interpretation with left-sided
pneumonia. CT scan of the head and C-spine negative for any acute traumatic injuries.
On reassessment patient's blood pressure remains with MAP less than 65 after 2 liters of fluid. Will initiate pressors. Discussed with hospitalist who accepted patient to their service.
ED Attending Note
-
Portions of this chart may have been created with voice recognition software.� Occasional wrong word or��sound alike� substitutions may have occurred due to the inherent limitations of voice recognition software.
Discharge Plan
Departure
Patient Disposition: Admit
Date of Disposition: 01/13/25
Time of Disposition: 20:09
Presentation/result/management discussed w/ accepting MD/DO: Hospitalist
Discharge Problem:
Septic shock, Pneumonia
Prescriptions:
No Action
sertraline 100 MG tablet
100 mg PO DAILY
metformin 500 MG tablet
1,000 mg PO BID
Anoro Ellipta 62.5-25 mcg/actuation Blister With Device
1 inh INHALATION R DAILY
Patient Comments:
04/09/2024, per pt., she is finishing up her Anoro before starting her Trelegy.
methimazole 5 mg Tablet
5 mg PO DAILY
atorvastatin 40 mg Tablet
40 mg PO DAILY
levalbuterol tartrate 45 mcg/actuation Hfa Aerosol Inhaler
2 puff INHALATION R Q4HPRN PRN (Reason: shortness of breath )
pregabalin 150 mg Capsule
150 mg PO BID
Patient Comments:
09/12/2024: last filled 07/13/24, 180 tabs for 90 days from [facility]
diltiazem HCl 240 mg capsule,extended release 24hr
240 mg PO BID
roflumilast [Daliresp] 500 MCG tablet
500 mcg PO DAILY
Eliquis 5 mg tablet
5 mg PO BID
loratadine 10 mg Tablet
10 mg PO DAILY 14 Days Qty: 14 0RF
insulin aspart U-100 [Novolog FlexPen U-100 Insulin] 100 unit/mL (3 mL) insulin pen
10 unit SC AC
lisinopril 2.5 mg Tablet
2.5 mg PO DAILY 30 Days Qty: 30 0RF
prednisone 10 mg Tablet
See Rx Instructions .ROUTE .COMPLEX Qty: 30 0RF
Rx Instructions:
Take By Mouth:
40 mg daily x3 days, 30 mg daily x3 days,
20 mg daily x3 days, 10 mg daily x3 days.
insulin glargine [Lantus Solostar U-100 Insulin] 100 unit/mL (3 mL) insulin pen
22 unit SC HS Qty: 15 0RF
levalbuterol HCl 0.63 mg/3 mL solution for nebulization
0.63 mg inhalation R TIDPRN PRN (Reason: wheezing/SOB ) Qty: 90 0RF
metoprolol tartrate 25 mg Tablet
25 mg PO DAILY
Interventions
Interventions:
*Risk Screen - Suicide Last Done: 01/13/25 17:34
*General Assessment Last Done: 01/13/25 17:34
*Neglect/Abuse Screening Last Done: 01/13/25 17:34
ED- Fall Risk Assessment Last Done: 01/13/25 17:46
*ED COVID-19 Vaccine History Last Done: 01/13/25 17:34
ED-Musculoskeletal Assessment Last Done: 01/13/25 17:46
ED- Neurological Assessment Last Done: 01/13/25 19:41
ED-Skin Assessment Last Done: 01/13/25 19:41
Discharge Date and Time
Print Language: YAKUT
[2025-01-13] MEDS: DECADRON 10 MG IV (18:15)
[2025-01-13] MEDS: DUONEB 3 ML INH (18:15)
[2025-01-13 18:16] LABS: Hematocrit 39.8 % (37.0-47.0); Hemoglobin 13.2 g/dL (12.0-16.0); Mean Corp Hgb Conc. 33.2 g/dL (33.0-37.0); Mean Corpuscular Volume 96.6 fL (81.0-99.0); Mean Platelet Volume 12.2 fL (7.4-10.4); Platelet Count 139 10^3/uL (130-400); Red Blood Cell Count 4.12 10^6/uL (4.20-5.40); Red Cell Dist. Width 17.9 % (11.5-14.5); White Blood Cell Count 30.9 10^3/uL (4.8-10.8)
[2025-01-13] MEDS: NSS 1000 IV (18:16)
[2025-01-13 18:22] LABS: ALT (SGPT) 16 U/L (0-35); AST (SGOT) 17 U/L (14-36); Alkaline Phosphatase 91 U/L (38-126); Blood Urea Nitrogen 63 mg/dl (7-17); Calcium 9.2 mg/dl (8.4-10.2); Carbon Dioxide 16 mmol/L (22-30); Chloride 98 mmol/L (98-107); Estimated Creatinine Clearance 19 ml/min; Glucose 127 mg/dl (70-99); Potassium 3.9 mmol/L (3.5-5.1); Sodium 132 mmol/L (135-145); Total Bilirubin 0.8 mg/dl (0.2-1.3); Total Protein 6.4 g/dl (6.3-8.2); eGFR 17.37
[2025-01-13] MEDS: ROCEPHIN 1000 MG IV (18:37)
[2025-01-13] MEDS: ZITHROMAX INFUSION 250 IV (18:38)
[2025-01-13 18:45] LABS: Absolute Neutrophils -Man Diff 29.3 10^3/uL (1.4-6.5); Band Neutrophils 11 % (0-3); Lymphocytes 5 % (20-51); Segmented Neutrophils 84 % (42-75)
[2025-01-13 18:46] LABS: Normal RBC Morphology No; Platelets Checked Yes
[2025-01-13 18:47] LABS: Anisocytosis 1+; Total Cells Counted 100
[2025-01-13 18:47] LABS: COVID-19 Antigen Negative (Negative)
[2025-01-13 18:56] LABS: Lactic Acid 3.8 mmol/L (0.7-2.0)
[2025-01-13] MEDS: LR 1000 IV (19:38)
[2025-01-13] MEDS: LEVOPHED 250 IV (20:24)
--- NOTE | 2025-01-13 21:09 | HPS.HSE ---
Family Physician
-
Family Physician: Hemant David
Chief Complaint
-
Weakness amd fall
History of Present Illness
This is a 59-year-old female with past medical history significant of COPD not currently on home O2, proximal atrial fibrillation on anticoagulation, CHF with preserved EF, insulin-dependent diabetes, hypothyroid who presents to the emergency
department from home after episode of a fall in the setting of 1 day history of weakness and was found to be hypotensive and hypoxic with a left lower lobe pneumonia.
Patient could not quite provide much history due to the extremity of her illness. Spouse provided history. Patient apparently had a cough about 5 days ago they gave her a steroid taper and the cough improved. She was not complain of any shortness
of breath. She started feeling sick on Tuesday. She did not have any more productive cough than usual she did not complain of any more shortness of breath. She did not complain of any chest pain. They did put her on a slight amount of oxygen at
home. She was very weak, no known fevers at home. She had a fall and did hit her head. There was no palpitations. Patient was brought to the emergency department. Where she was found to be hypotensive to 70 systolic.
In the ED initial blood pressure was 70/47 pulse of 73 and satting to 90% on 3 L. Chest x-ray shows a left lower lobe infiltrate. CT head was negative for any acute bleed. CT C-spine was negative for dislocation or fracture.
White count was 30, hemoglobin and platelets were normal. Electrolytes were mostly normal except for sodium of 132 and a bicarb of 16. Creatinine was elevated at 3.0 from a baseline of 1.0. COVID and flu test were negative.
Medical History
Past Medical History
Past Medical History: Reports Arrhythmia (Proximal atrial fibrillation on anticoagulation), COPD, HTN and Hyperthyroidism
Past Surgical History: Reports Other
Social History
Tobacco: Former Smoker
Alcohol: None
Drug: None
Personal:
Living: With Family
Employment: Not Employed
Family History
Family History: Not pertinent
Allergies / Home Medications
Allergies reflects when Allergies were last updated in [facility].
Home Medications with original date entered in [facility]
Allergy/Medication List:
Allergies
Allergy/AdvReac Type Severity Reaction Status Date / Time
No Known Allergies Allergy Verified 01/13/25 20:20
Home Medications
sertraline 100 mg tablet 100 mg PO DAILY Depression 01/30/18
metformin 500 mg tablet 1,000 mg PO BID Diabetes 12/30/21
methimazole 5 mg tablet 5 mg PO DAILY hyperthyroidism 03/27/23
apixaban 5 mg tablet (Eliquis) 5 mg PO BID Blood Clot Prevention/Tx 04/09/24
atorvastatin 40 mg tablet 40 mg PO DAILY High Cholesterol 04/09/24
diltiazem HCl 240 mg capsule,extended release 24 hr 240 mg PO BID Blood Pressure 04/09/24
levalbuterol tartrate 45 mcg/actuation aerosol inhaler 2 puff inhalation R Q4HPRN PRN shortness of breath 04/09/24
pregabalin 150 mg capsule 150 mg PO BID Pain 04/09/24
roflumilast 500 mcg tablet (Daliresp) 500 mcg PO DAILY Lung/Breathing Issues 04/09/24
loratadine 10 mg tablet 10 mg PO DAILY 14 days #14 tabs 04/13/24
insulin aspart U-100 100 unit/mL (3 mL) subcutaneous pen (Novolog FlexPen U-100 Insulin aspart) 10 unit SC AC Diabetes 09/12/24
levalbuterol HCl 0.63 mg/3 mL solution for nebulization 0.63 mg (3 mL) inhalation R TIDPRN PRN wheezing/SOB #90 mL 09/17/24
lisinopril 2.5 mg tablet 2.5 mg PO DAILY 30 days #30 tabs 09/17/24
prednisone 10 mg tablet See Rx Instructions .Route .COMPLEX #30 tabs 09/17/24
Flexeril 1 tab PO DAILY 01/13/25
fluticasone fur. 100 mcg-umeclid 62.5 mcg-vilant 25 mcg inhalat.powder (Trelegy Ellipta) 1 inh inhalation DAILY 01/13/25
insulin glargine 100 unit/mL (3 mL) subcutaneous pen (Lantus Solostar U-100 Insulin) 16 unit SC HS 01/13/25
metoprolol succinate 25 mg tablet,extended release 24 hr 25 mg PO QPM 01/13/25
Review of Systems
-
Unable to obtain full review of systems at this time due to: Acuity
History Source: Family
Constitutional: Reports Fatigue
EENT: Reports No Symptoms
Respiratory: Reports Cough and Trouble Breathing
Cardiac: Reports No Symptoms
Abdomen/GI: Reports No Symptoms
: Reports No Symptoms
Musculoskeletal: Reports No Symptoms
Skin: Reports No Symptoms
Neurological: Reports Weakness
Endocrine: Reports No Symptoms
Hematologic/Lymphatic: Reports No Symptoms
Psych: Reports No Symptoms
Physical Exam
Vital Signs
Vital Signs
Temp Pulse Resp BP Pulse Ox
97.6 F 78 20 86/58 92
01/13/25 19:30 01/13/25 21:00 01/13/25 21:00 01/13/25 21:00 01/13/25 21:00
Physical Exam
General: Appears Chronically Ill
HEENT: NormoCephalic, Anicteric, Atraumatic, PERRLA and Oxygen
Respiratory: Clear, Crackles, Non Labored Respirations and Decreased Breath Sounds; No Wheezes
Cardiac: S1/S2 and Regular Rhythm
Breast: Deferred by me
GI: Soft, Non Tender, Non Distended and Normal Bowel Sounds
Rectal: Deferred by Provider
Genito-urinary: Deferred by me
Musculoskeletal: No Clubbing, No Cyanosis and No Edema
Skin: Warm
Neuro: AO x 3 and Nonfocal/grossly intact
Hematologic/Lymphatic: No Lymphadenopathy
Psych: Calm
Laboratory Results
-
01/13/25 17:58
01/13/25 17:58
Laboratory Results
Lactic Acid 3.8 mmol/L (0.7-2.0) H 01/13/25 18:34
Total Bilirubin 0.8 mg/dl (0.2-1.3) 01/13/25 17:58
AST 17 U/L (14-36) 01/13/25 17:58
ALT 16 U/L (0-35) 01/13/25 17:58
Alkaline Phosphatase 91 U/L (38-126) 01/13/25 17:58
Data Reviewed
-
Diagnostic Radiology: Image Personally Visualized and interpreted
CT Scan: Report Reviewed by me
Medical Tests (Nuc Med, Echo, EKG etc): Image Personally Visualized and interpreted
Lab Data: Labs Reviewed by me
Old Records: Reviewed
Impression/Plan
-
IMPRESSION:
59-year-old with history of COPD, paroxysmal atrial fibrillation and hypothyroidism, insulin-dependent diabetes presenting to the emergency department with weakness and hypoxia found to be hypotensive after a fall at home. She has a left lower lobe
pneumonia. No evidence of flu or COVID.
PLAN:
1. Community acquired pneumonia - Severely ill, hypoxic and hypotensive, no mrsa in past, no resistant bacterial isolates. She is not in apparent COPD exacerbation without wheezing or increased resp efforts.
- admit to imu
- blood cultures sent
- obtain legionella and pneumococcal ag
- check mrsa
- given severity of illness will add vancomycin to abx, continue ceftriaxone/azithromycin
- oxygen, nebs RTC
- pulmonary consult
2. Hypotension - Septic shock. Lactic acid 3.8.
- s/p 30 ml/kg bolus
- started on pressors low dose currently
- will continue gently hydration with LR overnight
- will give stress dose steroids for now
- hold lisinopril and metoprolol
3. TIKI - Cr 3, from bl of suspect ATN but cannot rule out pre-renal. No urine output so far
- i/os, check bladder scan
- s/p iv fluids 30 ml/kg
- check urine seds and sodium
- nephrology consult if Cr still elevated in am
4. DM II
- insulin sliding scale moderate scale for now
- lantus 10 hs, aspart tidac
- hold metformin
5. AFIB
- continue eliquis
- continue dilt with hold parameters
- holding metoprolol
DVT PPX - on apixaban
Code status - Full Code
[2025-01-13] MEDS: SOLU-CORTEF 100 MG IV (21:28)
[2025-01-13] MEDS: VANCOCIN 530 MG IV (21:51)
--- NOTE | 2025-01-13 23:52 | EDRN ---
Report given to Sharla in IMU, waiting for room to be cleaned.
[2025-01-14] VITALS (42 sets, daily range): BP systolic 74–138; BP diastolic 48–94; BMI 27.7
[2025-01-14] MEDS: LR 1000 IV (01:31)
[2025-01-14 01:35] LABS: Glucose - Point of Care 243 mg/dl (70-99)
[2025-01-14 02:47] LABS: Urine Albumin 2+ (Neg - Trace); Urine Bilirubin Negative (Negative); Urine Character Slightly Cloudy (Clear); Urine Color Amber; Urine Glucose Negative (Negative); Urine Ketone Negative (Negative); Urine Leukocyte 2+ (Negative); Urine Nitrite Negative (Negative); Urine Occult Blood 4+ (Negative); Urine Urobilinogen Negative (Neg - 1+)
[2025-01-14 02:56] LABS: Urine Mucus Many
[2025-01-14 02:57] LABS: Urine Amorphous Seen; Urine Bacteria Many (Negative); Urine Squamous Cell >30 /LPF (Few); Urine Urothelial Cell >30 /LPF (FEW)
[2025-01-14 03:03] LABS: Urine Sodium 47 mmol/L (30-90); Urine Triple Phosphate Crystal Seen
[2025-01-14 03:04] LABS: Urine Granular Cast >15 /LPF (0)
[2025-01-14] MEDS: CARDIZEM 125 IV (03:50)
[2025-01-14] MEDS: SOLU-CORTEF 50 MG IV ×4 (05:17→23:14)
[2025-01-14 05:18] LABS: Lactic Acid 1.2 mmol/L (0.7-2.0)
[2025-01-14 05:19] LABS: Hematocrit 33.4 % (37.0-47.0); Hemoglobin 11.3 g/dL (12.0-16.0); Mean Corp Hgb Conc. 33.8 g/dL (33.0-37.0); Mean Corpuscular Hgb 32.1 pg (27.0-31.0); Mean Corpuscular Volume 94.9 fL (81.0-99.0); Mean Platelet Volume 12.6 fL (7.4-10.4); Platelet Count 108 10^3/uL (130-400); Red Blood Cell Count 3.52 10^6/uL (4.20-5.40); Red Cell Dist. Width 17.6 % (11.5-14.5); White Blood Cell Count 19.1 10^3/uL (4.8-10.8)
[2025-01-14 05:34] LABS: Blood Urea Nitrogen 61 mg/dl (7-17); Calcium 8.1 mg/dl (8.4-10.2); Carbon Dioxide 17 mmol/L (22-30); Chloride 105 mmol/L (98-107); Estimated Creatinine Clearance 29 ml/min; Glucose 238 mg/dl (70-99); Potassium 4.1 mmol/L (3.5-5.1); Sodium 133 mmol/L (135-145); eGFR 28.25
--- NOTE | 2025-01-14 06:00 | PTCARENOTE ---
Received verbal report from LISSA Mi. Pt arrived to floor via stretcher from ED. Pt ox3, drowsy but easily arousable. 94% on 5L NC. Levo gtt infusing at time of arrival, now off (see worklist). Pt was NSR on arrival to floor. Pt's rhythm became
irregular and EKG confirmed afib with RVR. RENE Deleon notified and Cardizem gtt Rx'd (see JAN). Admission completed. Pt resting in bed with call brooke in reach.
[2025-01-14] MEDS: DUONEB 3 ML INH ×4 (07:17→19:58)
[2025-01-14] MEDS: SYMBICORT 80/4.5 MCG INHALER 2 PUFF INH ×2 (07:17→19:58)
[2025-01-14 07:27] LABS: Glucose - Point of Care 235 mg/dl (70-99)
[2025-01-14] MEDS: LYRICA 150 MG PO ×2 (08:17→22:22)
[2025-01-14] MEDS: CLARITIN 10 MG PO (08:17)
[2025-01-14] MEDS: ZOLOFT 100 MG PO (08:17)
[2025-01-14] MEDS: LIPITOR 40 MG PO (08:17)
[2025-01-14] MEDS: ELIQUIS 5 MG PO ×2 (08:18→22:22)
[2025-01-14] MEDS: CARDIZEM CD 240 MG PO (08:18)
[2025-01-14] MEDS: NOVOLOG FLEXPEN 5 UNITS SC ×3 (08:18→16:58)
[2025-01-14] MEDS: TAPAZOLE 5 MG PO (08:18)
[2025-01-14] MEDS: NOVOLOG FLEXPEN-MODERATE RESISTANCE 3 UNITS SC (08:19)
--- NOTE | 2025-01-14 09:11 | PHA.VAN.IN ---
Assessment
- Assessment
Renal Function: Appears elevated from baseline (SCR 3 --> 2 vs ~ 0.6-0.8 in 2023)
Concomitant Antimicrobials: ceftriaxone, azithromycin
Plan
- Plan
Initial / Loading Dose: 1500mg - 01/13 21:51
Maintenance Regimen: dosing by level - will give 750mg x1 since did not receive full load
Monitorin/18 0600
MRSA Screen: Ordered per protocol
Pharmacokinetics Vancomycin I
- -
Patient Age: 59
Patient Sex: Female
Vancomycin Day #: 1
Indication: Pulmonary/Respiratory
Requesting Provider: Dr. Culp
Pertinent Antimicrobial Allergies:
NKDA
Height / Weight:
Height 5 ft 3 in
Actual Weight 71 kg
Pertinent Past Medical History: COPD, DM II
- Vital Signs / Lab Results
Temp Pulse Resp BP Pulse Ox
97.4 F 129 18 102/58 90
01/14/25 07:15 01/14/25 08:18 01/14/25 07:24 01/14/25 08:18 01/14/25 07:24
Lab Results - Hematology
01/13/25 01/14/25
17:58 04:54
WBC 30.9 H 19.1 H
Band Neutrophils 11 H
Lab Results - Chemistry
01/13/25 01/14/25
17:58 04:54
BUN 63 H 61 H
Creatinine 3.0 H 2.0 H
Estimated Creat Clear 19 29
Albumin 4.0
01/13/25 01/14/25
18:34 04:54
Lactic Acid 3.8 H 1.2
Lab Results - Urine
01/14/25
02:19
Urine Nitrite (Reflex) Negative
Leukocyte Esterase Rfl 2+ A
Urine WBC (Reflex)
Ur Squamous Epith Cells >30
Urine Bacteria (Reflex) Many A
Microbiology Results
01/13/25 18:34 Blood Culture - Preliminary
Blood/Venous Positive culture in progress
Gram Stain - Preliminary
01/13/25 18:35 Blood Culture - Preliminary
Blood/Venous Positive culture in progress
Gram Stain - Preliminary
01/13/25 18:13 Influenza Types A & B (TICO) - Final
Nasal Swab Negative for Influenza A & B, NAAT
Negative results must be combined with clinical observations
and patient history.
Nucleic Acid Amplification test (NAAT)performed on the
[employer] platform.
--- NOTE | 2025-01-14 09:30 | W.PN.HOSP.TC ---
Today's Communication/Plan
-
Rpt BC
Cardizem gtt
Check Trop
Increase Rocephin to 2 grams
ID eval
Prob can stop Vanco
Assessment / Plan
Assessment / Plan
59-year-old female presented to the ER with weakness and fall. Patient has been sick over the past week and was given steroid taper. She felt really sick on Tuesday had a fall yesterday patient was found to be hypotensive in the ER
Chest x-ray reviewed by me-left lower lobe pneumonia
CT-head-no acute intracranial abnormality. Acute on chronic maxillary sinusitis
CVS: S1-S2 irregular and tachy
Chest: B/L rales, BS decreased right base
Abdomen: Soft, NT / Bowel sounds present
Extremities: No edema
PROFESSOR OF VISUAL ARTS: Non focal exam
# Septic shock
Lactic acidosis resolved.
Secondary to pneumonia
Continue IV fluids
Off Pressors now
Restart BB
Hold lisinopril
White count improving
# Community-acquired pneumonia
Blood cultures coming back positive for GPC-likely strep pneumonia
Legionella and pneumococcal antigen, MRSA-testing
Vancomycin ceftriaxone and Zithromax now
Prob can stop Vanco
Increase ceftriaxone to 2 g
Nebulizer treatments
If pleural effusion increases needs thoracentesis to rule out empyema
ID eval
Pulmonary consulted
# Acute hypoxic respiratory failure secondary to above
Chronic hypoxic resp failure on Home O2
Wean oxygen as tolerated
# Acute kidney injury
Metabolic acidosis
Likely secondary to above possibly ATN versus prerenal
Hold lisinopril, metformin
Continue IV fluids and follow creatinine
# Thrombocytopenia-secondary to sepsis-follow
# Mild hyponatremia-improving with hydration
Likely hypovolemic
# Paroxysmal atrial fibrillation-Now with RVR
Continue Eliquis
Restart metoprolol
Cardizem drip
Hold PO Cardizem while on gtt ( got the dose before t was held)
# Abnormal EKG-check troponin
# Cardiomyopathy / Chronic HFREF
Echo 09/13/2024-EF 40 to 45%, global hypokinesis with regional variability, mild concentric LVH, mild TR, pulmonary artery pressure 37 mmHg, trivial pericardial effusion
Hold lisinopril
Continue BB
# Diabetes type 2
On Lantus 16 units at night and NovoLog 10 AC as outpatient
Hold metformin
Sliding scale coverage with Lantus
# COPD
On Trelegy Ellipta, Daliresp as outpatient-continue equivalent
Continue levalbuterol
# Hyperlipidemia-continue statin
# Hyperthyroidism-continue methimazole
# History of pericardial effusion
# Depression-continue sertraline
# Chronic back pain on Lyrica and Flexeril as outpatient-allow if awake and alert
# GERD-Add Pepcid
# History of colon resection 2018 at [place]
# Smoker- Cessation counselling
# Obesity per BMI
# DVT prophylaxis-Eliquis
# Full code
D/W RN at bed side
Time spent over 50 min
Anticipated Discharge: > 48 hours
Subjective/Interval History
-
Date of Service: January 14, 2025
Objective Data
-
Labs:
Laboratory Results
01/14/25
04:54
WBC 19.1 H
Hgb 11.3 L
Hct 33.4 L
Plt Count 108 L D
Sodium 133 L
Potassium 4.1
Chloride 105
Carbon Dioxide 17 L
BUN 61 H
Creatinine 2.0 H
Glucose 238 H
Calcium 8.1 L
Vital Signs:
Vital Signs
Temp Pulse Resp BP Pulse Ox
97.4 F 155 15 92/66 92
01/14/25 07:15 01/14/25 09:00 01/14/25 09:00 01/14/25 08:30 01/14/25 09:00
I&O
01/13/25 01/14/25 01/15/25
06:59 06:59 06:59
Intake Total 480 / 480
Balance 480 / 480
[2025-01-14] MEDS: DALIRESP 500 MCG PO (10:03)
[2025-01-14] MEDS: NSS 1000 IV ×2 (10:04→23:41)
--- NOTE | 2025-01-14 10:31 | CON.ID ---
Consultation
-
Date/Time Consultation Requested: January 14, 2025 0839
Date/Time Consultation Performed: January 14, 2025 1030
Requesting Provider: Dr. Matt Hawk
Performing Provider: Dr. Swathi Steward
Reason for Consultation: PNA and bacteremia
Chief Complaint / Past History
Chief Complaint
Weakness
History of Present Illness
59-year-old female with history of COPD, atrial fibrillation, hyper thyroidism who presented to the hospital on January 13 after a fall while trying to get out of bed. She reports started feeling unwell approximately 3 to 4 days ago with cough.
She took some leftover prednisone and the cough resolved. However she continued to be very weak. When she tried to get up from bed, her legs gave out and she fell. She denies any fevers or chills. Denies ill contacts. Admission white count was
30.9. Patient in TIKI, hypotensive with systolic blood pressure in the 70s, hypoxic. Chest x-ray shows left lower lobe opacity with probable pleural effusion loculated. Today she states she is feeling a little bit better. No headache or sinus
congestion. No diarrhea. No dysuria or urgency.
Past History
Additional Past Medical History:
Hypertension
COPD
Paroxysmal atrial fibrillation
Hyperthyroidism
HFpEF
Depression/anxiety
Allergy History:
No Known Allergies Allergy (Verified 01/13/25 20:20)
Medications Reviewed: Yes
Current Antibiotics:
Vancomycin
Ceftriaxone
Azithromycin
Social History
Tobacco: Former Smoker
Alcohol: None
Drug: None
Personal:
Family History
Family History: Not Pertinent
Review of Systems
Review of Systems
General: Change in Appetite; Negative Fever or Chills
HEENT: Negative Sinus Problems, Headache or Pharyngitis
Cardiovascular: Negative Chest Pain
Respiratory: Cough; Negative Dyspnea or Sputum Production
Gasteroenterology: Negative Nausea, Vomiting or Diarrhea
Genital / Urological: Negative Dysuria or Flank Pain
Endocrine: Weakness and Fatigue
Musculoskeletal: Negative Arthralgias
Skin / Hair / Nails: Negative Rash
Neurological: Negative Dizziness
All systems: All other systems were reviewed and were negative
Vital Signs
Temp Pulse Resp BP Pulse Ox
97.4 F 155 15 92/66 90
01/14/25 07:15 01/14/25 09:00 01/14/25 09:00 01/14/25 08:30 01/14/25 09:33
Physical Exam
Physical Exam
Constitutional: Comfortable
Head: Other (No frontal or maxillary sinus tenderness)
Eyes: No Conjunctival Hemorrhage and Sclera Anicteric
Cardiovascular: Irregular Rate, S1/S2 and Other (tachycardic)
Pulmonary: Other (Left lung course crackles, decreased breathe sound at base.)
Gastrointestinal: Soft, Non Tender, Non Distended and Normal Bowel Sounds
Genito-Urinary: Negative CVA Tenderness
Extremities: Negative Edema
Neurological: AO x 3; Negative Meningeal Signs
Lab / Diagnostic Study Results
01/14/25 04:54
01/14/25 04:54
Total Counted 100 01/13/25 17:58
Abs Neuts (Manual) 29.3 10^3/uL (1.4-6.5) H 01/13/25 17:58
Segmented Neutrophils 84 % (42-75) H 01/13/25 17:58
Band Neutrophils 11 % (0-3) H 01/13/25 17:58
Lymphocytes (Manual) 5 % (20-51) L 01/13/25 17:58
Lactic Acid 1.2 mmol/L (0.7-2.0) 01/14/25 04:54
Ur Squamous Epith Cells >30 /LPF (Few) 01/14/25 02:19
Microbiology Results
Micro:
01/14/25 09:41 Blood Culture - Pending
Blood/Venous
01/14/25 09:54 Blood Culture - Pending
Blood/Venous
01/14/25 01:49 Nasal Screen MRSA (PCR) - Pending
Nose
01/13/25 18:34 Blood Culture - Preliminary
Blood/Venous Positive culture in progress
Gram Stain - Preliminary
01/13/25 18:35 Blood Culture - Preliminary
Blood/Venous Positive culture in progress
Gram Stain - Preliminary
01/14/25 02:19 Urine Culture - Pending
Urine
01/13/25 18:13 Influenza Types A & B (TICO) - Final
Nasal Swab Negative for Influenza A & B, NAAT
Negative results must be combined with clinical observations
and patient history.
Nucleic Acid Amplification test (NAAT)performed on the
[employer] platform.
01/13/25 CXR: Left lower lobe pneumonia. Probable associated pleural effusion, possibly loculated.
01/13/[address]: No acute intracranial abnormality noted. No acute intracranial hemorrhage. No extra axial collection. No skull fracture. Acute superimposed on chronic maxillary sinusitis.
Assessment / Plan
# Left lower lobe community-acquired pneumonia
# GPC's in pairs and chains bacteremia, suspect Streptococcus pneumoniae
# Severe sepsis with leukocytosis, hypotension, TIKI
# Acute hypoxic respiratory failure
-Follow repeat blood cultures.
-Agree with ceftriaxone.
-Discontinue vancomycin and azithromycin.
-Follow white count/temps.
# Conditions ON SITE NURSE
Hypertension
COPD
Paroxysmal atrial fibrillation
Hyperthyroidism
HFpEF
Depression/anxiety
--- NOTE | 2025-01-14 10:47 | CM ---
CM following re: discharge planning.
Reviewed pt's chart, met with pt.
Pt is a 59 year old female admitted with primary dx of Septic shock after being weak and fell at home.
Pt reports she lives with and a son 2SH, 3 steps to enter, has 3 supportive children. 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 Pt stated
she has been using her supplemental O2 as needed.
PCP: Hemant David
Pharmacy: [facility].
D/C plan: home with anticipated no needs. Family to transport at discharge.
CM will follow with discharge plan updates as hospitalization progresses
[2025-01-14 10:48] LABS: Troponin I < 0.012 ng/ml
[2025-01-14 11:17] LABS: Glucose - Point of Care 317 mg/dl (70-99)
[2025-01-14] MEDS: NOVOLOG FLEXPEN-MODERATE RESISTANCE 7 UNITS SC ×2 (11:29→16:58)
[2025-01-14 16:36] LABS: Troponin I < 0.012 ng/ml
[2025-01-14 16:38] LABS: Glucose - Point of Care 306 mg/dl (70-99)
--- NOTE | 2025-01-14 16:49 | CON.CAR ---
Addendum entered and electronically signed by Campbell Hartmann DO 01/14/25 17:23:
I saw and examined the patient.
The Chief Hospital Administrator's note was reviewed and I agree with the note.
Comment:
Plan:
Cont IV Cardizem for rate control with rate control strategy for now. Cont PM beta ramiro and resume oral Cardizem if bp continues to improve.
Cont Eliquis
Eventual consideration for cardioversion outpt vs inpt pending hospital course.
Check echo
Cont supportive care and tx for sepsis/PNA
TIKI starting to improve. Hold ACEI
Discussed with nursing.
Original Note:
Consultation
Consultation Request
Date/Time Consultation Requested: 01/14/2025
Date/Time Consultation Performed: 01/14/2025
Requesting Provider: Dr. Hawk
Performing Provider: Waleska Alvarez PA-C for Dr. Campbell Hartmann
Reason for Consultation: Atrial fibrillation with rapid ventricular response
Medical History
-
Chief Complaint: Atrial fibrillation with rapid ventricular response, pneumonia
History of Present Illness:
Patient is a 59 yo F with PMH of COPD, ongoing tobacco abuse, chronic HF reduced EF, paroxysmal afib s/p PVI/flutter ablation 2022 and CV 09/28/2024, on chronic eliquis, HTN, HLD, DM2, cardiomyopathy EF 40-45% who presented to [facility] 01/13/2025 with
weakness, shortness of breath and mechanical fall. Patient reports that she developed a cough approximately 10 days prior to admission and took a 5-day course of oral steroids that she had on hand at home. Cough improved and she felt well for
several days. Then on 01/12/2025 patient noted worsening weakness and fatigue and reports she slept most of the day. On 01/13/2025 while attempting to get out of bed patient's legs were weak gave way and she fell into a nightstand hitting her head
prompting her to come to emergency department. Head CT showed no acute intracranial abnormality or bleed. She was found to be hypotensive requiring IV Levophed, elevated white count of 30.9 and TIKI with creatinine of 3.0. Chest x-ray was
concerning for left lower lobe pneumonia associated with pleural effusion. Initial EKG showed normal sinus rhythm however patient then developed atrial fibrillation with rapid ventricular response. Troponin was negative. Initial blood cultures
drawn on 01/13/2024 have grown gram-positive cocci within first 24 hours. Patient was treated with IV vancomycin, ceftriaxone and azithromycin. Urine culture also concerning for UTI with cultures pending. At time of this evaluation patient reports
to ongoing weakness and shortness of breath now requiring 5 L of oxygen via nasal cannula. She reports she is shaky and continues to feel weak. She denies having chest pain but feels palpitations and rapid heartbeats. She denies orthopnea or PND.
PMH:
COPD
Chronic HF reduced EF
Cardiomyopathy EF 40-45%
PAF
history of PVI/flutter in 2022
Status post cardioversion 09/28/2024
Chronic OAC with eliquis
HTN
HLD
DM2
Hyperthyroidism
Depression/anxiety
Current smoker
Past Medical History
Past Medical History: Other (in HPI)
Past Surgical History: Bowel Resection, Cardiac (PVI ablation 2022), (X 3), Orthopedic (Left hip replacement) and Other (Surgery for deviated septum, multiple spinal injections, hemorrhoidectomy 2017)
Social History
Tobacco: Smoker (states quit 2 weeks ago)
Alcohol: Occasional (Twice a month)
Drug: None
Personal:
Living: With Family
Employment: Not Employed
Family History
Family History: CAD, Cancer, Diabetes and Hypertension
Allergies / Home Medications
Allergy/AdvReac Type Severity Reaction Status Date / Time
No Known Allergies Allergy Verified 01/13/25 20:20
�Medication �Instructions �Recorded �Confirmed �Type
sertraline 100 mg tablet 100 mg PO DAILY Depression 01/30/18 01/13/25 History
metformin 500 mg tablet 1,000 mg PO BID Diabetes 12/30/21 01/13/25 History
methimazole 5 mg tablet 5 mg PO DAILY hyperthyroidism 03/27/23 01/13/25 History
apixaban 5 mg tablet (Eliquis) 5 mg PO BID Blood Clot 04/09/24 01/13/25 History
Prevention/Tx
atorvastatin 40 mg tablet 40 mg PO DAILY High Cholesterol 04/09/24 01/13/25 History
diltiazem HCl 240 mg 240 mg PO BID Blood Pressure 04/09/24 01/13/25 History
capsule,extended release 24 hr
levalbuterol tartrate 45 2 puff inhalation R Q4HPRN PRN 04/09/24 01/13/25 History
mcg/actuation aerosol inhaler shortness of breath
pregabalin 150 mg capsule 150 mg PO BID Pain 04/09/24 01/13/25 History
roflumilast 500 mcg tablet 500 mcg PO DAILY Lung/Breathing 04/09/24 01/13/25 History
(Daliresp) Issues
loratadine 10 mg tablet 10 mg PO DAILY 14 days #14 tabs 04/13/24 01/13/25 Rx
insulin aspart U-100 100 unit/mL 10 unit SC AC Diabetes 09/12/24 01/13/25 History
(3 mL) subcutaneous pen (Novolog
FlexPen U-100 Insulin aspart)
levalbuterol HCl 0.63 mg/3 mL 0.63 mg (3 mL) inhalation R TIDPRN 09/17/24 01/13/25 Rx
solution for nebulization PRN wheezing/SOB #90 mL
lisinopril 2.5 mg tablet 2.5 mg PO DAILY 30 days #30 tabs 09/17/24 01/13/25 Rx
Flexeril 1 tab PO DAILY Muscle Spasms 01/13/25 01/13/25 History
fluticasone fur. 100 mcg-umeclid 1 inh inhalation DAILY 01/13/25 01/13/25 History
62.5 mcg-vilant 25 mcg Lung/Breathing Issues
inhalat.powder (Trelegy Ellipta)
insulin glargine 100 unit/mL (3 16 unit SC HS Diabetes 01/13/25 01/13/25 History
mL) subcutaneous pen (Lantus
Solostar U-100 Insulin)
metoprolol succinate 25 mg 25 mg PO QPM Blood Pressure 01/13/25 01/13/25 History
tablet,extended release 24 hr
prednisone 10 mg tablet See Rx Instructions .Route 01/14/25 01/13/25 History
.COMPLEX inflammation
Review of Systems
-
History Source: Patient
All other systems: Negative unless noted
Physical Exam
Vital Signs
Temp Pulse Resp BP Pulse Ox
97.7 F 112 20 82/63 91
01/14/25 15:06 01/14/25 15:51 01/14/25 15:51 01/14/25 12:30 01/14/25 15:51
GEN: No distress, awake, Ox3, lying in bed on oxygen
HEENT: supple, anicteric, mmm
LUNGS: Coarse breath sounds bilaterally left greater than right, absent breath sounds at right base, occasional faint expiratory wheezes bilaterally
CV: Irregularly irregular, tachycardic S1/S2, no murmur, rub or gallop
ABD: soft, BS+, NT/ND
EXT: No edema, clubbing or cyanosis
NEURO: Resting tremor of upper extremities otherwise non-focal
SKIN: No rash, warm, dry, pink
Lab Results
01/14/25 04:54
01/14/25 04:54
Troponin I < 0.012 ng/ml 01/14/25 15:06
Impression / Plan
-
Primary Line Maintainer Section: Dr. Hartmann
Impression:
Presentation 01/13/2025 with mechanical fall, weakness, extreme fatigue, shortness of breath
Sepsis with Leukocytosis, hypotension initially requiring pressors, TIKI, tachycardia
Positive blood culture with gram-positive cocci in pairs and chains
Left lower lobe pneumonia with left pleural effusion
Atrial fibrillation with rapid ventricular response
TIKI
Concern for UTI
Thrombocytopenia, platelets 108,000
Chronic HFpEF, possible acute exacerbation, euvolemic now
Cardiomyopathy EF 40-45% by echo 08/2024
PAF
history of PVI/flutter ablation in 2022
Status post cardioversion 09/28/2024
Chronic OAC with eliquis
HTN
HLD
DM2
Hyperthyroidism, Low TSH with compensated free T4 09/13/24
Depression/anxiety
Smoker
ECHO 02/14/24: EF 45 to 50%, abnormal paradoxical septal motion consistent with IVCD, no significant valvular disease
ECHO 09/13/24: EF 40 to 45%, global hypokinesis with regional variability, mild concentric LVH, mild TR, PAP 37 mmHg, trivial pericardial effusion, no significant change compared to prior
Echo 01/15/2025: Ordered
Plan:
Presentation 01/13/2025 with mechanical fall, weakness, extreme fatigue, shortness of breath.
Sepsis with Leukocytosis, hypotension initially requiring pressors, TIKI, tachycardia. Now found to have Positive blood culture with gram-positive cocci in pairs and chains from blood culture 01/13/2025. Initially treated with vancomycin,
azithromycin and ceftriaxone. Repeat blood cultures 01/14/2025 pending. ID following recommending continuation of IV ceftriaxone.
-Currently off pressors however remains hypotensive
-Concern for UTI, on antibiotics as noted above. Urine culture pending. ID following.
Left lower lobe pneumonia with left pleural effusion, continue antibiotics per ID and primary service
-Wean oxygen as tolerated, currently on 5 L via nasal cannula
Hypotension with TIKI
-Hold lisinopril and metformin
-Currently oral diltiazem on hold while patient on IV diltiazem
-Would try to continue beta-ramiro if possible
Atrial fibrillation with rapid ventricular response
-Currently on IV diltiazem drip. Would uptitrate as blood pressure allows for heart rate response.
-Would try to continue beta-ramiro if possible
-Continue anticoagulation with Eliquis
-Could consider cardioversion once patient has improved from respiratory standpoint/pneumonia if she continues in A-fib
TIKI on admission. Likely due to dehydration with poor oral intake. Lisinopril and metformin on hold. Creatinine slowly improving 3.0->2.0. Continue to monitor and trend
Cardiomyopathy with a EF of 40 to 45% on echocardiogram in August 2024.
-Does not appear to be acutely volume overloaded on examination
-Would hold lisinopril given hypotension in setting of sepsis. Hopeful eventual resumption
-Patient not on diuretic as outpatient.
Plan discussed with patient, patient's who is at bedside
Data Reviewed
-
EKG: Report Reviewed by me, Discussed with Physician, Discussed with Patient and Discussed with Family
Radiology: Report Reviewed by me, Discussed with Physician, Discussed with Patient and Discussed with Family
CT Scan: Report Reviewed by me, Discussed with Physician, Discussed with Patient and Discussed with Family
Labs: Labs Reviewed by me, Discussed with Physician, Discussed with Patient and Discussed with Family
Old Records: Reviewed
[2025-01-14] MEDS: STERILE WATER FOR INJECTION 20 ML IV (17:03)
[2025-01-14] MEDS: ROCEPHIN 2000 MG IV (17:04)
[2025-01-14] MEDS: TOPROL XL 25 MG PO (17:11)
--- NOTE | 2025-01-14 19:30 | PTCARENOTE ---
Received pt from day shift RN. Pt aaox3. 92% 5L NC. Afib on monitor. Cardizem gtt infusing (see worklist). VS and assessment as charted. Pt resting in bed with call brooke in reach.
[2025-01-14 22:05] LABS: Glucose - Point of Care 278 mg/dl (70-99)
[2025-01-14] MEDS: LANTUS 0.1 UNITS SC (22:23)
[2025-01-15] VITALS (26 sets, daily range): BP systolic 100–141; BP diastolic 52–96; PULSE 102; O2SAT 92; BMI 28.3
[2025-01-15] MEDS: CARDIZEM 125 IV (00:23)
[2025-01-15 03:52] LABS: Hematocrit 29.6 % (37.0-47.0); Hemoglobin 10.3 g/dL (12.0-16.0); Mean Corp Hgb Conc. 34.8 g/dL (33.0-37.0); Mean Corpuscular Volume 91.9 fL (81.0-99.0); Mean Platelet Volume 11.9 fL (7.4-10.4); Platelet Count 102 10^3/uL (130-400); Red Blood Cell Count 3.22 10^6/uL (4.20-5.40); Red Cell Dist. Width 17.2 % (11.5-14.5); White Blood Cell Count 12.8 10^3/uL (4.8-10.8)
[2025-01-15 03:59] LABS: Blood Urea Nitrogen 44 mg/dl (7-17); Calcium 7.9 mg/dl (8.4-10.2); Carbon Dioxide 17 mmol/L (22-30); Chloride 104 mmol/L (98-107); Estimated Creatinine Clearance 64 ml/min; Glucose 274 mg/dl (70-99); Magnesium 1.5 mg/dl (1.6-2.3); Potassium 3.5 mmol/L (3.5-5.1); Sodium 133 mmol/L (135-145); eGFR > 60.00
--- NOTE | 2025-01-15 05:15 | PTCARENOTE ---
Pt's hr dropped from 90s to 60s. Pt asymptomatic. Notified RENE Godinez. Instructed to turn off gtt. Cardizem gtt no longer infusing.
[2025-01-15] MEDS: SOLU-CORTEF 50 MG IV ×2 (06:12→11:16)
[2025-01-15] MEDS: DUONEB 3 ML INH ×4 (07:05→19:50)
[2025-01-15] MEDS: SYMBICORT 80/4.5 MCG INHALER 2 PUFF INH ×2 (07:05→19:51)
[2025-01-15 07:41] LABS: Glucose - Point of Care 229 mg/dl (70-99)
[2025-01-15] MEDS: NSS IV (09:12)
[2025-01-15] MEDS: NOVOLOG FLEXPEN SC (09:12)
--- NOTE | 2025-01-15 09:21 | W.PN.ID1 ---
Date of Service
Date of Service: January 15, 2025
Today's Communication
Continue ceftriaxone.
Assessment / Plan
# Left lower lobe community-acquired pneumonia
# GPC's in pairs and chains bacteremia, suspect Streptococcus pneumoniae
# Severe sepsis -resolving
# Leukocytosis trending down
# TIKI resolved
# Acute hypoxic respiratory failure
-Follow repeat blood cultures.
-Continue with ceftriaxone d3
-Follow white count
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
Hypertension
COPD
Paroxysmal atrial fibrillation
Hyperthyroidism
HFpEF
Depression/anxiety
Chief Complaint
-: Pneumonia and Bacteremia
Subjective / Review of Systems
Still feels shaky and weak.
Vital Signs / Physical Exam
Vital Signs
Vital Signs
Temp Pulse Resp BP Pulse Ox
97.7 F 87 18 122/75 95
01/15/25 02:54 01/15/25 07:07 01/15/25 07:07 01/15/25 07:00 01/15/25 07:07
Physical Exam
Constitutional: No Acute Distress
Cardiovascular: Irregular Rate and S1/S2
Pulmonary: Rales (left crackles)
Gastrointestinal: Soft, Non Tender, Non Distended and Normal Bowel Sounds
Extremities: Negative Edema
Neurological: AO x 3; Negative Meningeal Signs
Objective Data
Lab Data
Lab Results
01/15/25 03:07
01/15/25 03:07
Estimated Creat Clear 64 ml/min 01/15/25 03:07
Lactic Acid 1.2 mmol/L (0.7-2.0) 01/14/25 04:54
Total Bilirubin 0.8 mg/dl (0.2-1.3) 01/13/25 17:58
AST 17 U/L (14-36) 01/13/25 17:58
ALT 16 U/L (0-35) 01/13/25 17:58
Alkaline Phosphatase 91 U/L (38-126) 01/13/25 17:58
Most recent labs reviewed.
Micro Results:
01/13/25 18:35 Blood Culture - Preliminary
Blood/Venous Positive culture in progress
Gram Stain - Preliminary
01/13/25 18:34 Blood Culture - Preliminary
Blood/Venous Positive culture in progress
Gram Stain - Final
01/14/25 01:49 Nasal Screen MRSA (PCR) - Final
Nose MRSA not detected - performed by PCR methodology.
01/14/25 09:41 Blood Culture - Pending
Blood/Venous
01/14/25 09:54 Blood Culture - Pending
Blood/Venous
01/14/25 02:19 Urine Culture - Pending
Urine
01/13/25 18:13 Influenza Types A & B (TICO) - Final
Nasal Swab Negative for Influenza A & B, NAAT
Negative results must be combined with clinical observations
and patient history.
Nucleic Acid Amplification test (NAAT)performed on the
[employer] platform.
01/13/25 CXR: Left lower lobe pneumonia. Probable associated pleural effusion, possibly loculated.
01/13/[address]: No acute intracranial abnormality noted. No acute intracranial hemorrhage. No extra axial collection. No skull fracture. Acute superimposed on chronic maxillary sinusitis.
[2025-01-15] MEDS: NOVOLOG FLEXPEN-MODERATE RESISTANCE 3 UNITS SC ×2 (09:22→13:22)
[2025-01-15] MEDS: NOVOLOG FLEXPEN 10 UNITS SC (09:23)
[2025-01-15] MEDS: LIPITOR 40 MG PO (09:23)
[2025-01-15] MEDS: SODIUM BICARBONATE 650 MG PO ×3 (09:24→22:07)
[2025-01-15] MEDS: TAPAZOLE 5 MG PO (09:24)
[2025-01-15] MEDS: MAGNESIUM SULFATE 50 IV (09:24)
[2025-01-15] MEDS: LYRICA 150 MG PO ×2 (09:24→19:42)
[2025-01-15] MEDS: ELIQUIS 5 MG PO ×2 (09:24→19:42)
[2025-01-15] MEDS: ZOLOFT 100 MG PO (09:24)
[2025-01-15] MEDS: CLARITIN 10 MG PO (09:24)
[2025-01-15] MEDS: DALIRESP 500 MCG PO (09:24)
[2025-01-15] MEDS: CARDIZEM CD 120 MG PO (09:30)
--- NOTE | 2025-01-15 10:16 | W.PN.CARDCBS ---
Addendum entered and electronically signed by Marquez Arthur MD 01/15/25 11:42:
In response to CDI query patient has chronic heart failure with reduced ejection fraction
Original Note:
Today's Communication / Plan
-
Rate control of A-fib with PO beta-ramiro and calcium channel ramiro
Impression / Plan
-
Primary Test Borer: Dr. Hartmann
Impression:
Presentation 01/13/2025 with mechanical fall, weakness, extreme fatigue, shortness of breath
Sepsis with Leukocytosis, hypotension initially requiring pressors, TIKI, tachycardia
Positive blood culture with gram-positive cocci in pairs and chains
Left lower lobe pneumonia with left pleural effusion
Atrial fibrillation with rapid ventricular response
TIKI
Concern for UTI
Thrombocytopenia, platelets 108,000
Chronic HFpEF, possible acute exacerbation, euvolemic now
Cardiomyopathy EF 40-45% by echo 08/2024
PAF
history of PVI/flutter ablation in 2022
Status post cardioversion 09/28/2024
Chronic OAC with eliquis
HTN
HLD
DM2
Hyperthyroidism, Low TSH with compensated free T4 09/13/24
Depression/anxiety
Smoker
ECHO 02/14/24: EF 45 to 50%, abnormal paradoxical septal motion consistent with IVCD, no significant valvular disease
ECHO 09/13/24: EF 40 to 45%, global hypokinesis with regional variability, mild concentric LVH, mild TR, PAP 37 mmHg, trivial pericardial effusion, no significant change compared to prior
Echo 01/15/2025: Ordered
Plan:
Presentation 01/13/2025 with mechanical fall, weakness, extreme fatigue, shortness of breath found to have bacteremia and PNA being treated with IV abx
Hypotension with TIKI
-Currently off pressors however BP remains soft
-Hold lisinopril
-Add back home BB and CCB with hold parameters
Atrial fibrillation with rapid ventricular response
-Off IV diltiazem
-Rate control with PO BB and CCB as BP tolerates
-Continue anticoagulation with Eliquis
-Could consider cardioversion once patient has improved from respiratory standpoint/pneumonia if she continues in A-fib
TIKI (resolved)
-Likely due to dehydration with poor oral intake
-Resume lisinopril as BP tolerates
Cardiomyopathy with a EF of 40 to 45% on echocardiogram in August 2024
-Does not appear to be acutely volume overloaded on examination
-Continue BB
-Resume lisinopril when BP tolerates
discussed with nursing
Progress Note - Test Borer
Subjective
Date of Service: January 15, 2025
NAOE. Remains in IMU on supplemental O2. No cardiac complaints this AM.
Objective
Labs:
01/15/25 03:07
01/15/25 03:07
Labs
Hgb 10.3 g/dL (12.0-16.0) L 01/15/25 03:07
Hct 29.6 % (37.0-47.0) L 01/15/25 03:07
Plt Count 102 10^3/uL (130-400) L 01/15/25 03:07
Sodium 133 mmol/L (135-145) L 01/15/25 03:07
Potassium 3.5 mmol/L (3.5-5.1) 01/15/25 03:07
BUN 44 mg/dl (7-17) H 01/15/25 03:07
Creatinine 0.9 mg/dL (0.6-1.0) 01/15/25 03:07
Glucose 274 mg/dl (70-99) H 01/15/25 03:07
Troponins
01/14/25 01/14/25
09:41 15:06
Troponin I < 0.012 < 0.012
Vital Signs and I&O:
Vital Signs
Temp Pulse Resp BP Pulse Ox
97.7 F 99 31 101/77 95
01/15/25 02:54 01/15/25 09:00 01/15/25 09:00 01/15/25 09:00 01/15/25 09:00
Vital Signs
Temp Pulse Resp BP Pulse Ox
97.7 F 99 31 101/77 95
01/15/25 02:54 01/15/25 09:00 01/15/25 09:00 01/15/25 09:00 01/15/25 09:00
Intake & Output
01/13/25 01/14/25 01/15/25 01/16/25
06:59 06:59 06:59 06:59
Intake Total 480 / 480 1615 / 1615
Output Total 1150 / 1150
Balance 480 / 480 465 / 465
Physical Exam
Physical Exam
Gen: NAD, AA
HEENT: NC/AT, sclera anicteric
Neck: No JVD
CV: Irregularly irregular
Lungs: Scattered wheezing on 4 L nasal cannula
Abd: S/ND
Ext: No LE edema
Skin: Warm, dry
Neuro: Non-focal
[2025-01-15 10:45] LABS: Vitamin D, 25-OH*** < 12.8 ng/mL (30-80)
[2025-01-15 11:18] LABS: Vitamin B12 246 pg/ml (239-931)
--- NOTE | 2025-01-15 11:27 | PN.CDI ---
CDI
- -
CDI:
Physician Documentation Request
Admit Date: 01/13/25 21:33
Dear Cardiology,
Please review the following and provide your response in the progress notes.
Clinical Indicators:
- 01/15 Cardiology 'Chronic HFpEF'
- 01/14 Cardiology indicates HFpEF and pmh HFrEF
- 09/13/24 Echo EF 40-45% 'Moderately reduced left ventricular systolic function'
Please provide further specificity regarding the most likely type and acuity of CHF you are evaluating, treating or monitoring.
HFrEF
HFpEF
Other (please specify)
Use of terms such as suspected, likely, concern for, or probable (associated with a specific diagnosis that is being evaluated, monitored, or treated as if it exists) are acceptable and can be coded in the inpatient setting, when documented at the
time of discharge.
Thank you,
Fitz Tidwell RN
CDI Specialist
Please use your independent medical judgment in providing your response.
--- NOTE | 2025-01-15 12:29 | CM ---
CM following re: discharge planning.
Reviewed pt's chart, met with pt. pt requires 6L NC of O2 and pt stated she is really focused to wean off supplemental oxygen. Pt has home O2 and uses it as needed.
PT and OT evaluations noted - home PT/OT recommended. CM discussed it with the pt. Pt stated as of today she feels she will need VN services and per pt things can changed. As of today pt expressed her agreement and pt preferred [facility]. A referral to
[facility] made. Also, pt expressed her desire to continue babysitting her grandchildren. Pt stated she has a walker at home.
D/C plan: home with [facility] and family support. Family to transport at discharge.
CM will follow with discharge plan updates as hospitalization progresses
[2025-01-15 12:43] LABS: Glucose - Point of Care 215 mg/dl (70-99)
--- NOTE | 2025-01-15 12:45 | W.PN.HOSP.TC ---
Addendum entered and electronically signed by Matt Hawk MD 01/15/25 12:56:
left message for
Original Note:
Today's Communication/Plan
-
Restart Cardizem
Restart metformin
Increase Insulin
DC IV fluids
Encourage out of bed
Wean oxygen as tolerated
Okay to transfer to telemetry
Continue antibiotics
Chest x-ray in the morning
Assessment / Plan
Assessment / Plan
59-year-old female presented to the ER with weakness and fall. Patient has been sick over the past week and was given steroid taper. She felt really sick on Tuesday had a fall yesterday patient was found to be hypotensive in the ER
Chest x-ray reviewed by me-left lower lobe pneumonia
CT-head-no acute intracranial abnormality. Acute on chronic maxillary sinusitis
CVS: S1-S2 irregular
Chest: B/L rales, BS decreased right base
Abdomen: Soft, NT / Bowel sounds present
Extremities: No edema
[employer] [place]: Non focal exam
# Septic shock
Lactic acidosis resolved.
Secondary to pneumonia
Off Pressors now
Restarted BB and Cardizem
Hold lisinopril
White count improving
# Community-acquired pneumonia
Blood cultures coming back positive for GPC-likely strep pneumonia
Continue ceftriaxone. Vancomycin and Zithromax stopped.
Nebulizer treatments
Repeat chest x-ray in the morning to follow effusion
ID and Pulmonary consulted
# Acute hypoxic respiratory failure secondary to above
Chronic hypoxic resp failure on Home O2
Wean oxygen as tolerated
# Acute kidney injury
Metabolic acidosis
Likely secondary to above possibly ATN versus prerenal
Stop IV fluids
# Thrombocytopenia-secondary to sepsis-follow
# Mild hyponatremia-improving with hydration
Likely hypovolemic
# Paroxysmal atrial fibrillation-Now with RVR
Continue Eliquis
Restart metoprolol
Cardizem drip turned off
P.o. Cardizem restarted
# Abnormal EKG-check troponin
# Cardiomyopathy / Chronic HFREF
Echo 09/13/2024-EF 40 to 45%, global hypokinesis with regional variability, mild concentric LVH, mild TR, pulmonary artery pressure 37 mmHg, trivial pericardial effusion
Hopefully we can restart lisinopril if blood pressure allows.
Continue BB
# Diabetes type 2
On Lantus 16 units at night and NovoLog 10 AC as outpatient
Increase Lantus and NovoLog to patient's outpatient dose
Restart metformin
# COPD
On Trelegy Ellipta, Daliresp as outpatient-continue equivalent
Continue levalbuterol
# Vit D Def Replace
# Hyperlipidemia-continue statin
# Hyperthyroidism-continue methimazole
# History of pericardial effusion
# Depression-continue sertraline
# Chronic back pain on Lyrica and Flexeril as outpatient-allow if awake and alert
# GERD-Add Pepcid
# History of colon resection 2018 at [place]
# Smoker- Cessation counselling
# Obesity per BMI
# DVT prophylaxis-Eliquis
# Full code
D/W RN at bed side
Anticipated Discharge: 24 - 48 hours
Subjective/Interval History
-
Date of Service: January 15, 2025
Objective Data
-
Labs:
Laboratory Results
01/15/25
03:07
WBC 12.8 H
Hgb 10.3 L
Hct 29.6 L
Plt Count 102 L
Sodium 133 L
Potassium 3.5
Chloride 104
Carbon Dioxide 17 L
BUN 44 H
Creatinine 0.9
Glucose 274 H
Calcium 7.9 L
Vital Signs:
Vital Signs
Temp Pulse Resp BP Pulse Ox
97.7 F 99 18 101/77 94
01/15/25 02:54 01/15/25 09:00 01/15/25 11:15 01/15/25 09:00 01/15/25 11:15
I&O
01/14/25 01/15/25 01/16/25
06:59 06:59 06:59
Intake Total 480 / 480 1615 / 1615
Output Total 1150 / 1150
Balance 480 / 480 465 / 465
[2025-01-15] MEDS: DRISDOL (VITAMIN D2) 50000 UNITS PO (13:23)
[2025-01-15] MEDS: CARDIZEM 60 MG PO (16:30)
[2025-01-15] MEDS: CARDIZEM 5 MG IV (17:07)
[2025-01-15] MEDS: ROCEPHIN 2000 MG IV (17:08)
[2025-01-15] MEDS: GLUCOPHAGE 1000 MG PO (17:08)
[2025-01-15] MEDS: STERILE WATER FOR INJECTION 20 ML IV (17:08)
[2025-01-15] MEDS: TOPROL XL 25 MG PO (17:08)
[2025-01-15] MEDS: NOVOLOG FLEXPEN-MODERATE RESISTANCE 5 UNITS SC (17:16)
[2025-01-15 17:18] LABS: Glucose - Point of Care 250 mg/dl (70-99)
--- NOTE | 2025-01-15 17:20 | PTCARENOTE ---
Assumed care of patient at beginning of this shift from previous RN. Cardizem lolita d/c'd prior to this shift when HR in the 60s. Dr Small in to see patient and made aware. Dr Hawk made aware; ordered po cardizem which was given. HR increased
when OOB to chair and working with therapy; maintained 120s-130s even after resting. At [id number] patient's HR 130s-150s, then 117-120. TT sent to Dr Hawk with picture of telemetry strip; she stated she would order po cardizem, which was
given after order placed. HR continued to increase with minimal activity: 130s. Cardizem 5mg IV bolus ordered and given. Verified with Dr Hawk that patient may remain telemetry but to keep on unit for an hour or two in case needing cardizem
infusion again. gonsalo Rosales supervisor wood crew, made aware.
--- NOTE | 2025-01-15 18:47 | PTCARENOTE ---
HR continues to run high: 130s-140s OOB to commode and 120s otherwise, with a low of 110. TT sent to Dr Hawk who stated she will restart opal mchugh.
--- NOTE | 2025-01-15 18:55 | PTCARENOTE ---
Report given to Kee ALCARAZ, IVU. Will report off to Sharla ALCARAZ as well since patient still on IMU.
--- NOTE | 2025-01-15 19:10 | PTCARENOTE ---
Dr Hawk sent back a TT stating to see what the po dose of cardizem does; she is due for it at 20:00.
[2025-01-15] MEDS: SOLU-CORTEF 25 MG IV (19:43)
[2025-01-15] MEDS: CARDIZEM CD 240 MG PO (19:43)
--- NOTE | 2025-01-15 21:00 | PTCARENOTE ---
Received pt from day shift RN. Pt aaox3. afib on monitor. VS as documented. 94% on 6L NC. Lungs diminished throughout on auscultation. Verbal report given to LISSA Sweet. Pt transferred to IVU via bed with all belongings.
[2025-01-15 21:36] LABS: Glucose - Point of Care 238 mg/dl (70-99)
[2025-01-15] MEDS: LANTUS 0.16 UNITS SC (22:07)
--- NOTE | 2025-01-15 22:29 | PTCARENOTE ---
Patient transferred from IMU at approx 2100 in bed. On arrival patient is on 6L via NC with saO2 95%. Patient is noted to be tachycardic HR 112 in atrial fibrillation patient received oral cardizem prior to transfer. All other VSS. On assessment
patient is AOx4, follows commands appropiately, moves all extremities. Lung sounds are diminished in the bases, there is a wheeze audible on expiration, patient reported to be tachypenic at times right now RR 20. Patient has active BS voids in BSC.
There is a PIV in L FA and R AC. Skin grossly intact. Patient oriented to room and assessed. Call brooke within reach.
--- NOTE | 2025-01-15 23:00 | PTCARENOTE ---
report received from previous RN, walking rounds done. pt AAOx4, no c/o pain at this time. AFIB on monitor, HR 100s. POX 98% on 6LNC. pt voided in BSC w assistance. PIV intact and patent. see worklist for full assessment, VS, and interventions.
[2025-01-16] VITALS (7 sets, daily range): BP systolic 110–158; BP diastolic 60–92; BMI 28.0
--- NOTE | 2025-01-16 02:40 | DOWNTIME ---
There was a [employer] Downtime on 01/16/2025 from 0100 to 01/16/2024 at 0235 . Downtime documentation of patient's care, including medication administrations, has been reconciled in the electronic record per guidelines. Refer to the
patient's paper chart under the miscellaneous tab to see printed paper medication records and downtime forms.
--- NOTE | 2025-01-16 05:10 | PTCARENOTE ---
no changes in assessment, VSS AFIB 90s-100s. POX 98% on 4LNC. pt sleeping between care.
[2025-01-16 08:16] LABS: Glucose - Point of Care 129 mg/dl (70-99)
[2025-01-16] MEDS: SYMBICORT 80/4.5 MCG INHALER 2 PUFF INH ×2 (08:54→19:50)
[2025-01-16] MEDS: DUONEB 3 ML INH ×4 (08:54→19:50)
[2025-01-16] MEDS: NOVOLOG FLEXPEN-MODERATE RESISTANCE SC (09:16)
[2025-01-16] MEDS: DALIRESP 500 MCG PO (09:17)
[2025-01-16] MEDS: CLARITIN 10 MG PO (09:17)
[2025-01-16] MEDS: GLUCOPHAGE 1000 MG PO (09:17)
[2025-01-16] MEDS: ZOLOFT 100 MG PO (09:18)
[2025-01-16] MEDS: LYRICA 150 MG PO ×2 (09:18→19:47)
[2025-01-16] MEDS: VITAMIN B-12 1000 MCG PO (09:19)
[2025-01-16] MEDS: TAPAZOLE 5 MG PO (09:19)
[2025-01-16] MEDS: CARDIZEM CD 240 MG PO ×2 (09:19→19:47)
[2025-01-16] MEDS: SOLU-CORTEF 25 MG IV (09:20)
[2025-01-16] MEDS: LIPITOR 40 MG PO (09:20)
[2025-01-16] MEDS: ELIQUIS 5 MG PO ×2 (09:20→19:47)
--- NOTE | 2025-01-16 11:09 | W.PN.CARDCBS ---
Today's Communication / Plan
-
Uptitrate metoprolol for heart rate goal <110 bpm in A-fib
Impression / Plan
-
Primary Group Fitness Instructor: Dr. Hartmann
Impression:
Presentation 01/13/2025 with mechanical fall, weakness, extreme fatigue, shortness of breath
Sepsis with Leukocytosis, hypotension initially requiring pressors, TIKI, tachycardia
Positive blood culture with gram-positive cocci in pairs and chains
Left lower lobe pneumonia with left pleural effusion
Atrial fibrillation with rapid ventricular response
TIKI
Concern for UTI
Thrombocytopenia, platelets 108,000
Chronic HFpEF, possible acute exacerbation, euvolemic now
Cardiomyopathy EF 40-45% by echo 08/2024
PAF
history of PVI/flutter ablation in 2022
Status post cardioversion 09/28/2024
Chronic OAC with eliquis
HTN
HLD
DM2
Hyperthyroidism, Low TSH with compensated free T4 09/13/24
Depression/anxiety
Smoker
ECHO 02/14/24: EF 45 to 50%, abnormal paradoxical septal motion consistent with IVCD, no significant valvular disease
ECHO 09/13/24: EF 40 to 45%, global hypokinesis with regional variability, mild concentric LVH, mild TR, PAP 37 mmHg, trivial pericardial effusion, no significant change compared to prior
Echo 01/15/2025: Ordered
Plan:
Presentation 01/13/2025 with mechanical fall, weakness, extreme fatigue, shortness of breath found to have bacteremia and PNA being treated with IV abx
Atrial fibrillation with rapid ventricular response
-Off IV diltiazem
-Rate control with PO BB and CCB as BP tolerates
-Uptitrated metoprolol dose
-Continue anticoagulation with Eliquis
-Could consider cardioversion once patient has improved from respiratory standpoint/pneumonia if she continues in A-fib
Cardiomyopathy with a EF of 40-45% on echocardiogram in August 2024
-Does not appear to be acutely volume overloaded on examination
-Continue BB
-Resume lisinopril when BP tolerates
Discussed with nursing
Progress Note - Group Fitness Instructor
Subjective
Date of Service: January 16, 2025
NAOE. Remains in AFib on tele, but asymptomatic. O2 being weaned down, tells me breathing is comfortable today.
Objective
Labs:
01/15/25 03:07
01/15/25 03:07
Labs
Hgb 10.3 g/dL (12.0-16.0) L 01/15/25 03:07
Hct 29.6 % (37.0-47.0) L 01/15/25 03:07
Plt Count 102 10^3/uL (130-400) L 01/15/25 03:07
Sodium 133 mmol/L (135-145) L 01/15/25 03:07
Potassium 3.5 mmol/L (3.5-5.1) 01/15/25 03:07
BUN 44 mg/dl (7-17) H 01/15/25 03:07
Creatinine 0.9 mg/dL (0.6-1.0) 01/15/25 03:07
Glucose 274 mg/dl (70-99) H 01/15/25 03:07
Troponins
01/14/25 01/14/25
09:41 15:06
Troponin I < 0.012 < 0.012
Vital Signs and I&O:
Vital Signs
Temp Pulse Resp BP Pulse Ox
98.2 F 106 20 158/92 97
01/16/25 07:30 01/16/25 08:59 01/16/25 08:59 01/16/25 07:30 01/16/25 09:30
Vital Signs
Temp Pulse Resp BP Pulse Ox
98.2 F 106 20 158/92 97
01/16/25 07:30 01/16/25 08:59 01/16/25 08:59 01/16/25 07:30 01/16/25 09:30
Intake & Output
01/14/25 01/15/25 01/16/25 01/17/25
06:59 06:59 06:59 06:59
Intake Total 480 / 480 1615 / 1615 480 / 480 180 / 180
Output Total 1150 / 1150
Balance 480 / 480 465 / 465 480 / 480 180 / 180
Physical Exam
Physical Exam
Gen: NAD, AAOx3
HEENT: NC/AT, sclera anicteric
Neck: No JVD
CV: irregularly irregular, NL s1/s2
Lungs: CTAB on 2L O2
Abd: S/ND
Ext: No LE edema
Skin: Warm, dry
Neuro: Non-focal
--- NOTE | 2025-01-16 11:36 | W.PN.ID1 ---
Date of Service
Date of Service: January 16, 2025
Today's Communication
Continue with ceftriaxone d4. Eventual po abx.
Assessment / Plan
# Invasive pneumococcal pneumonia
# Streptococcus pneumoniae bacteremia
# s/p Severe sepsis
# Leukocytosis trending down
# TIKI resolved
# Afib with RVR
-Repeat blood cultures neg todate
-Continue with ceftriaxone d4. Eventual po abx.
-Follow white count
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
Hypertension
COPD
Paroxysmal atrial fibrillation
Hyperthyroidism
HFpEF
Depression/anxiety
Chief Complaint
-: Pneumonia and Bacteremia
Subjective / Review of Systems
Feeling better.
Vital Signs / Physical Exam
Vital Signs
Vital Signs
Temp Pulse Resp BP Pulse Ox
98.4 F 106 20 158/92 94
01/16/25 11:12 01/16/25 08:59 01/16/25 11:12 01/16/25 07:30 01/16/25 11:12
Physical Exam
Constitutional: No Acute Distress
Cardiovascular: Irregular Rate, S1/S2 and Other (tachycardic)
Pulmonary: Rales (Improved left base crackles)
Gastrointestinal: Soft, Non Tender, Non Distended and Normal Bowel Sounds
Extremities: Negative Edema
Neurological: AO x 3
Objective Data
Lab Data
Lab Results
01/15/25 03:07
01/15/25 03:07
Estimated Creat Clear 64 ml/min 01/15/25 03:07
Lactic Acid 1.2 mmol/L (0.7-2.0) 01/14/25 04:54
Total Bilirubin 0.8 mg/dl (0.2-1.3) 01/13/25 17:58
AST 17 U/L (14-36) 01/13/25 17:58
ALT 16 U/L (0-35) 01/13/25 17:58
Alkaline Phosphatase 91 U/L (38-126) 01/13/25 17:58
Most recent labs reviewed.
Micro Results:
01/14/25 09:54 Blood Culture - Preliminary
Blood/Venous No Growth in 48 hours- Final report to follow
01/14/25 09:41 Blood Culture - Preliminary
Blood/Venous No Growth in 48 hours- Final report to follow
01/13/25 18:35 Blood Culture - Final
Blood/Venous Streptococcus pneumoniae
Gram Stain - Final
01/13/25 18:34 Blood Culture - Final
Blood/Venous Streptococcus pneumoniae
Gram Stain - Final
01/14/25 02:19 Urine Culture - Final
Urine
01/14/25 01:49 Nasal Screen MRSA (PCR) - Final
Nose MRSA not detected - performed by PCR methodology.
01/13/25 18:13 Influenza Types A & B (TICO) - Final
Nasal Swab Negative for Influenza A & B, NAAT
Negative results must be combined with clinical observations
and patient history.
Nucleic Acid Amplification test (NAAT)performed on the
[employer] platform.
01/13/25 CXR: Left lower lobe pneumonia. Probable associated pleural effusion, possibly loculated.
01/13/[address]: No acute intracranial abnormality noted. No acute intracranial hemorrhage. No extra axial collection. No skull fracture. Acute superimposed on chronic maxillary sinusitis.
--- NOTE | 2025-01-16 12:03 | W.PN.HOSP.TC ---
Today's Communication/Plan
-
cont Abx
Assessment / Plan
Assessment / Plan
59yo F with PMHX of HLD, DM, COPD, HTN came with SOB, managed for multilobular strep pneumonia CAP with bacteremia
A/P:
#S/pneumonia CAP with bacteremia and septic shock
#Acute hypoxic failure 2/2 above
Weaned off pressors
Wean off O2
on Ceftriaxone as per ID
CT chest without loculated pleural effusion
repeated Bcx NTD
#Afib with RVR, paroysmal
#Chronic HFpEF
#Essential HTN
Card follows
Telemetry
adjusting rate control
cont ELiquis
#DM type 2 with neuroapthy
Insulin, Accuchecks, DM diet
#Hypomagnesemia
replete and folow
#HLD
#vit D deficienct
#B12 deficiency
#COPD not in exacerbation
#Hyperthyroidism
cont home meds
stop hydrocortisone
#Reactive thrombocytopenia
not on heparin product
follow
#Nicotine dependency
nicoderm
cessation advised
DVT ppx on ELiquis
Full code
I have spent at least 58min reviewing chart, test results, communication with consultants and direct patient care
Anticipated Discharge: > 48 hours
Subjective/Interval History
-
Date of Service: January 16, 2025
Objective Data
-
Vital Signs:
Vital Signs
Temp Pulse Resp BP Pulse Ox
98.4 F 106 20 158/92 94
01/16/25 11:12 01/16/25 08:59 01/16/25 11:12 01/16/25 07:30 01/16/25 11:12
I&O
01/15/25 01/16/25 01/17/25
06:59 06:59 06:59
Intake Total 1615 / 1615 480 / 480 180 / 180
Output Total 1150 / 1150
Balance 465 / 465 480 / 480 180 / 180
Review of Systems
-
History Source: Patient
All other systems: Reviewed and negative
Physical Exam
-
General: No Apparent Distress
HEENT: Normocephalic
Respiratory: Clear to Auscultation
GI: Soft, Nontender and Nondistended
Musculoskeletal: No Clubbing, No Cyanosis and No Edema
Neuro: Awake, Alert, Oriented and AO x 3
Psych: Calm
[2025-01-16] MEDS: TOPROL XL 25 MG PO ×2 (12:27→19:47)
[2025-01-16] MEDS: NOVOLOG FLEXPEN-MODERATE RESISTANCE 1 UNITS SC ×2 (12:31→17:41)
[2025-01-16 12:32] LABS: Glucose - Point of Care 188 mg/dl (70-99)
--- NOTE | 2025-01-16 15:11 | CM ---
CM following for DC planning needs.
Pt. transferred to IVU from alternative flr.
Reviewed initial assessment. Pt. resides w/ spouse, son in a private, 2 story home w/ 3 ANA. Functionally, patient is indep. w/ ADLs, mobility without the use of any assisted device. Pt. has home O2 and nebulizer @ home, supplied by [employer].
Reviewed PT evaluation. Recommendation is for home health. Pt. is agreeable. Referral made to [facility]; patient accepted referral.
Attempted to meet w/ patient at bedside. Pt. sleeping soundly. Will re-attempt to meet w/ patient at a later time.
Plan is for home w/ [facility].
CM to follow.
[2025-01-16 17:41] LABS: Glucose - Point of Care 185 mg/dl (70-99)
[2025-01-16] MEDS: STERILE WATER FOR INJECTION 20 ML IV (17:43)
[2025-01-16] MEDS: ROCEPHIN 2000 MG IV (17:43)
--- NOTE | 2025-01-16 19:03 | PTCARENOTE ---
Pt resting in bed today, up to bathroom only. Telemetry shows continued atrial fib with frequent PVC's, toprol increased to BID dose today. Pt remains on oxygen at 2L and prefers not to wean it down due to SOB. CT scan of chest and chest Xray done
today, now pneumonia in her right lung. Pt states she already has oxygen at home if she needs it. Plan to transfer to telemetry and continue her care. Report called to 4W.
--- NOTE | 2025-01-16 20:30 | PTCARENOTE ---
pt transferred to [facility] bed 2 with RN at bedside.
[2025-01-16 22:06] LABS: Glucose - Point of Care 177 mg/dl (70-99)
[2025-01-16] MEDS: LANTUS 0.16 UNITS SC (22:17)
[2025-01-17] VITALS (7 sets, daily range): BP systolic 98–141; BP diastolic 51–83; PULSE 110; O2SAT 92; BMI 28.0
[2025-01-17] MEDS: DUONEB 3 ML INH (07:18)
[2025-01-17] MEDS: SYMBICORT 80/4.5 MCG INHALER 2 PUFF INH ×2 (07:18→19:55)
[2025-01-17 07:44] LABS: % Basophils 0.3 % (0-2); % Eosinophils 0.2 % (0-6); % Immature Granulocytes 2.4 % (0-0.5); % Lymphocytes 14.5 % (20.5-51.1); % Monocytes 6.7 % (1.7-9.3); % Neutrophils 75.9 % (42.2-75.2); Absolute Immature Granulocytes 0.1 10^3/uL (0-0.05); Absolute Lymphocytes 0.8 10^3/uL (1.2-3.4); Absolute Monocytes 0.4 10^3/uL (0.1-0.6); Absolute Neutrophils 4.4 10^3/uL (1.4-6.5); Hematocrit 35.3 % (37.0-47.0); Mean Corpuscular Hgb 31.3 pg (27.0-31.0); Mean Corpuscular Volume 91.9 fL (81.0-99.0); Mean Platelet Volume 11.9 fL (7.4-10.4); Nucleated Red Blood Cells % 0 %; Platelet Count 104 10^3/uL (130-400); Red Blood Cell Count 3.84 10^6/uL (4.20-5.40); Red Cell Dist. Width 17.4 % (11.5-14.5); White Blood Cell Count 5.8 10^3/uL (4.8-10.8)
[2025-01-17 07:57] LABS: Glucose - Point of Care 68 mg/dl (70-99)
[2025-01-17 08:01] LABS: ALT (SGPT) 13 U/L (0-35); AST (SGOT) 17 U/L (14-36); Albumin 3.4 g/dl (3.5-5.0); Alkaline Phosphatase 87 U/L (38-126); Blood Urea Nitrogen 13 mg/dl (7-17); Calcium 8.2 mg/dl (8.4-10.2); Carbon Dioxide 35 mmol/L (22-30); Chloride 96 mmol/L (98-107); Estimated Creatinine Clearance 96 ml/min; Glucose 64 mg/dl (70-99); Magnesium 1.1 mg/dl (1.6-2.3); Sodium 138 mmol/L (135-145); Total Bilirubin 0.7 mg/dl (0.2-1.3); Total Protein 5.7 g/dl (6.3-8.2); eGFR > 60.00
[2025-01-17] MEDS: NOVOLOG FLEXPEN-MODERATE RESISTANCE SC ×3 (08:47→17:25)
[2025-01-17 08:49] LABS: Glucose - Point of Care 72 mg/dl (70-99)
[2025-01-17] MEDS: CARDIZEM CD 240 MG PO (08:51)
[2025-01-17] MEDS: CLARITIN 10 MG PO (08:53)
[2025-01-17] MEDS: DALIRESP 500 MCG PO (08:53)
[2025-01-17] MEDS: ELIQUIS 5 MG PO ×2 (08:54→20:19)
[2025-01-17] MEDS: LIPITOR 40 MG PO (08:57)
[2025-01-17] MEDS: LYRICA 150 MG PO ×2 (08:58→20:19)
[2025-01-17] MEDS: TAPAZOLE 5 MG PO (08:59)
[2025-01-17] MEDS: TOPROL XL 25 MG PO ×3 (09:00→20:19)
[2025-01-17] MEDS: ZOLOFT 100 MG PO (09:01)
[2025-01-17] MEDS: VITAMIN B-12 1000 MCG PO (09:01)
[2025-01-17] MEDS: MAGNESIUM SULFATE 100 IV (09:13)
--- NOTE | 2025-01-17 10:10 | W.PN.HOSP.TC ---
Today's Communication/Plan
-
HR improved - remained <110.
ID reassessment, suspect that might be switched to oral Abx. If so - D/C. Patient able to ambulated in the room
Assessment / Plan
Assessment / Plan
59yo F with PMHX of HLD, DM, COPD, HTN came with SOB, managed for multilobular strep pneumonia CAP with bacteremia, confirmed on CT. Weaned off O2 on 01/17/25, repeated Bcx remained NTD
A/P:
#S/pneumonia CAP with bacteremia and septic shock
#Acute hypoxic failure 2/ above
Weaned off pressors
Wean off O2
on Ceftriaxone as per ID
CT chest without loculated pleural effusion
repeated Bcx NTD
#Afib with RVR, paroxysmal
#Chronic HFpEF
#Essential HTN
Card follows
Telemetry
adjusting rate control
cont Eliquis
#DM type 2 with neuropathy
Insulin, Accuchecks, DM diet
#Hypomagnesemia
replete and folow
#HLD
#vit D deficiency
#B12 deficiency
#COPD not in exacerbation
#Hyperthyroidism
cont home meds
stop hydrocortisone
#Reactive thrombocytopenia
not on heparin product
follow
#Nicotine dependency
nicoderm
cessation advised
DVT ppx on ELiquis
Full code
I have spent at least 38min reviewing chart, test results, communication with consultants and direct patient care
Anticipated Discharge: Within 24 hours
Subjective/Interval History
-
Date of Service: January 17, 2025
Objective Data
-
Labs:
Laboratory Results
01/17/25
06:59
WBC 5.8
Hgb 12.0
Hct 35.3 L
Plt Count 104 L
Sodium 138
Potassium 3.0 L
Chloride 96 L
Carbon Dioxide 35 H
BUN 13
Creatinine 0.6
Glucose 64 L
Calcium 8.2 L
Total Bilirubin 0.7
AST 17
ALT 13
Alkaline Phosphatase 87
Vital Signs:
Vital Signs
Temp Pulse Resp BP Pulse Ox
97.8 F 102 18 134/71 92
01/17/25 08:00 01/17/25 09:00 01/17/25 08:00 01/17/25 09:00 01/17/25 08:00
I&O
01/16/25 01/17/25 01/18/25
06:59 06:59 06:59
Intake Total 480 / 480 660 / 660
Balance 480 / 480 660 / 660
Review of Systems
-
History Source: Patient
All other systems: Reviewed and negative
Physical Exam
-
General: No Apparent Distress
HEENT: Normocephalic
Cardiac: Regular Rhythm
GI: Soft, Nontender and Nondistended
Musculoskeletal: No Clubbing, No Cyanosis and No Edema
Neuro: Awake, Alert, Oriented and AO x 3
Psych: Calm
--- NOTE | 2025-01-17 11:37 | W.PN.ID1 ---
Date of Service
Date of Service: January 17, 2025
Today's Communication
-Can transition ceftriaxone d5 to amoxicillin 1000 mg po q8h through 01/26/25
Assessment / Plan
# Invasive pneumococcal pneumonia
# Streptococcus pneumoniae bacteremia
# s/p Severe sepsis
# Leukocytosis resolved
# TIKI resolved
# Afib
-Repeat blood cultures neg to date
-Can transition ceftriaxone d5 to amoxicillin 1000 mg po q8h through 01/26/25
-Recommend PCV20 vaccine at local pharmacy when fully recovered.
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
Hypertension
COPD
Paroxysmal atrial fibrillation
Hyperthyroidism
HFpEF
Depression/anxiety
Chief Complaint
-: Pneumonia and Bacteremia
Subjective / Review of Systems
Feels improved. Off oxygen.
Vital Signs / Physical Exam
Vital Signs
Vital Signs
Temp Pulse Resp BP Pulse Ox
97.8 F 102 18 134/71 96
01/17/25 08:00 01/17/25 09:00 01/17/25 08:00 01/17/25 09:00 01/17/25 09:00
Physical Exam
Constitutional: No Acute Distress
Pulmonary: Rales
Gastrointestinal: Soft, Non Tender and Non Distended
Genito-Urinary: Negative CVA Tenderness
Neurological: AO x 3
Objective Data
Lab Data
Lab Results
01/17/25 06:59
01/17/25 06:59
Estimated Creat Clear 96 ml/min 01/17/25 06:59
Lactic Acid 1.2 mmol/L (0.7-2.0) 01/14/25 04:54
Total Bilirubin 0.7 mg/dl (0.2-1.3) 01/17/25 06:59
AST 17 U/L (14-36) 01/17/25 06:59
ALT 13 U/L (0-35) 01/17/25 06:59
Alkaline Phosphatase 87 U/L (38-126) 01/17/25 06:59
Most recent labs reviewed.
Micro Results:
01/14/25 09:41 Blood Culture - Preliminary
Blood/Venous No Growth in 72 hours- Final report to follow
01/14/25 09:54 Blood Culture - Preliminary
Blood/Venous No Growth in 72 hours- Final report to follow
01/13/25 18:35 Blood Culture - Final
Blood/Venous Streptococcus pneumoniae
Gram Stain - Final
01/13/25 18:34 Blood Culture - Final
Blood/Venous Streptococcus pneumoniae
Gram Stain - Final
01/14/25 02:19 Urine Culture - Final
Urine
01/14/25 01:49 Nasal Screen MRSA (PCR) - Final
Nose MRSA not detected - performed by PCR methodology.
01/13/25 18:13 Influenza Types A & B (TICO) - Final
Nasal Swab Negative for Influenza A & B, NAAT
Negative results must be combined with clinical observations
and patient history.
Nucleic Acid Amplification test (NAAT)performed on the
[employer] platform.
01/13/25 CXR: Left lower lobe pneumonia. Probable associated pleural effusion, possibly loculated.
01/13/[address]: No acute intracranial abnormality noted. No acute intracranial hemorrhage. No extra axial collection. No skull fracture. Acute superimposed on chronic maxillary sinusitis.
Care Review
Plan reviewed with: Physician (Dr. Hernandez)
[2025-01-17 11:42] LABS: Glucose - Point of Care 141 mg/dl (70-99)
--- NOTE | 2025-01-17 11:48 | W.DCSUMMARY ---
Discharge Summary
Discharge Data
Date of Admission: 01/13/25
Date of Discharge: 01/17/25
-
Pending Results: No
Hospital Course
59yo F with PMHX of HLD, DM, COPD, HTN came with SOB, managed for multilobular strep pneumonia CAP with bacteremia, confirmed on CT. Weaned off O2 on 01/17/25, repeated Bcx remained NTD. ID recommended Amoxicillin 1mg q8h until 01/26/25. Medically
stable for d/c home. Recommneded repeated chest XR in 2-3 weeks. Patient verbalized understanding of the instructions
I have spent at least 38min reviewing chart, test results, communication with consultants and direct patient care
Patient was managed for:
#S/pneumonia CAP with bacteremia and septic shock
#Acute hypoxic failure 2/2 above
#Afib with RVR, paroxysmal
#Chronic HFpEF
#Essential HTN
#DM type 2 with neuropathy
#Hypomagnesemia
#HLD
#vit D deficiency
#B12 deficiency
#COPD not in exacerbation
#Hyperthyroidism
#Reactive thrombocytopenia
#Nicotine dependency
Discharge Plan
-
Patient Disposition: Home (Routine Discharge)
Discharge Diagnosis/Procedures: Pneumonia
Diet: Regular
Activity: As tolerated
Driving Restrictions: As prior to admission
Referrals:
[facility] [Outside]
Campbell Hartmann DO [Active] - in one to two weeks
Hemant David DO [Family Provider] - in one to two weeks (Repeat chest XR)
Prescriptions:
New
metoprolol succinate 25 mg Tablet Extended Release 24 Hr
25 mg PO BID Qty: 60 0RF
ergocalciferol (vitamin D2) 1,250 mcg (50,000 unit) Capsule
50,000 unit PO Q7D Qty: 6 0RF
amoxicillin 500 mg tablet
1,000 mg PO Q8H Qty: 60 0RF
Continued
sertraline 100 MG tablet
100 mg PO DAILY
metformin 500 MG tablet
1,000 mg PO BID
methimazole 5 mg Tablet
5 mg PO DAILY
atorvastatin 40 mg Tablet
40 mg PO DAILY
levalbuterol tartrate 45 mcg/actuation Hfa Aerosol Inhaler
2 puff INHALATION R Q4HPRN PRN (Reason: shortness of breath )
pregabalin 150 mg Capsule
150 mg PO BID
diltiazem HCl 240 mg capsule,extended release 24hr
240 mg PO BID
roflumilast [Daliresp] 500 MCG tablet
500 mcg PO DAILY
Eliquis 5 mg tablet
5 mg PO BID
loratadine 10 mg Tablet
10 mg PO DAILY 14 Days Qty: 14 0RF
insulin aspart U-100 [Novolog FlexPen U-100 Insulin] 100 unit/mL (3 mL) insulin pen
10 unit SC AC
lisinopril 2.5 mg Tablet
2.5 mg PO DAILY 30 Days Qty: 30 0RF
levalbuterol HCl 0.63 mg/3 mL solution for nebulization
0.63 mg inhalation R TIDPRN PRN (Reason: wheezing/SOB ) Qty: 90 0RF
insulin glargine [Lantus Solostar U-100 Insulin] 100 unit/mL (3 mL) insulin pen
16 unit SC HS
Trelegy Ellipta 100-62.5-25 mcg Blister With Device
1 inh INHALATION DAILY
Discontinued
metoprolol succinate 25 mg Tablet Extended Release 24 Hr
25 mg PO QPM
Flexeril
1 tab PO DAILY
Patient Comments:
unknown mg
prednisone 10 mg tablet
See Rx Instructions .ROUTE .COMPLEX
Rx Instructions:
Take By Mouth:
40 mg daily x3 days, 30 mg daily x3 days,
20 mg daily x3 days, 10 mg daily x3 days.
Discharge Orders:
Discharge Patient (As Directed); Ordered 01/17/25
Ordered By: Marcos Hernandez
Care Plan Goals
Care Plan Goals:
Problem: Readiness for enhanced knowledge related to diagnosis and treatment plan
Goal: Understand your diagnosis and treatment plan needs, including medications if applicable.
Instructions: Know your diagnosis, underlying causes and treatment plan options, including medications if applicable. Consult with your health care team to learn about your diagnosis and treatment plan, including medications if applicable.
Discharge Date and Time
Print Language: MACEDONIAN
--- NOTE | 2025-01-17 12:03 | CM ---
Plan is to home today with [facility].
Plan; Home with [facility]
[2025-01-17] MEDS: KCL 40 MEQ PO (12:13)
--- NOTE | 2025-01-17 13:13 | W.PN.CARDCBS ---
Addendum entered and electronically signed by Marilyn Chauhan MD 01/17/25 14:30:
I saw and examined the patient.
The Executor Of Estate's note was reviewed and I agree with the note.
Comment:
Exam with atrial fibrillation with rapid ventricular response. Decreased breath sounds at the bases bilateral. No wheezing currently. Has been stable according to hospitalist service from a pneumonia point of view however continues with
recurrence of rapid atrial fibrillation (initially in sinus rhythm now in atrial fibrillation) for which she underwent cardioversion 09/2024. She had hypokalemia and hypomagnesemia today that is being repleted. She has cardiomyopathy with ejection
fraction currently 40%. Discussed with electrophysiology and discussed with patient and her at great length.
Concerned about use of high-dose diltiazem. Patient with cardiomyopathy. Rest heart rates are not acceptable at the current time. She has history of hypertension on methimazole followed as an outpatient.
Plan at this time from a cardiac point of view:
Continue uninterrupted anticoagulation
Discontinue diltiazem given negative inotropic effects
Will give an extra dose of metoprolol XL 25 mg now. No wheezing noted.
Repeat potassium and magnesium.
When electrolytes repleted start sotalol 80 mg twice daily and follow telemetry and twice daily EKGs.
Antiarrhythmic drug therapy discussed with patient and her at great length.
If patient does not convert to sinus rhythm plan for cardioversion on Tuesday.
Arrange for electrophysiology appointment (Dr. Hemant Chauhan who is seen her previously) in 3 to 4 weeks.
Treatment of pneumonia per primary service
Original Note:
Today's Communication / Plan
-
consider stopping cardizem. uptitration of toprol as able. consider addition of AAD given paroxysmal status
continue eliquis
replete K/mag
GDMT of CM as able
Impression / Plan
-
Primary Dressing Room Attendant: Dr. Hartmann
Impression:
Presentation 01/13/2025 with mechanical fall, weakness, extreme fatigue, shortness of breath
Sepsis with Leukocytosis, hypotension initially requiring pressors, TKII, tachycardia
Positive blood culture with gram-positive cocci in pairs and chains
Left lower lobe pneumonia with left pleural effusion
Atrial fibrillation with rapid ventricular response
TIKI
Concern for UTI
Thrombocytopenia, platelets 108,000
Chronic HFpEF, possible acute exacerbation, euvolemic now
Cardiomyopathy EF 40-45% by echo 08/2024
PAF
history of PVI/flutter ablation in 2022
Status post cardioversion 09/28/2024
Chronic OAC with eliquis
HTN
HLD
DM2
Hyperthyroidism, Low TSH with compensated free T4 09/13/24
Depression/anxiety
Smoker
ECHO 02/14/24: EF 45 to 50%, abnormal paradoxical septal motion consistent with IVCD, no significant valvular disease
ECHO 09/13/24: EF 40 to 45%, global hypokinesis with regional variability, mild concentric LVH, mild TR, PAP 37 mmHg, trivial pericardial effusion, no significant change compared to prior
Echo 01/15/2025: Ordered
Plan:
-Presentation 01/13/2025 with mechanical fall, weakness, extreme fatigue, shortness of breath found to have bacteremia and PNA being treated with IV abx
-on presentation she was in SR, however around 3:00AM on 01/14 went into afib and currently in what appears to be most consistent with aflutter. HRs ~100bpm by review of tele
-on toprol 25mg BID and cardizem cd 240mg BID as OP, however as EF reduced, cardizem not ideal medication. hypotension limits uptitration of BB, as well as degree of suspected lung disease. not ideal candidate for amio given young age and thyroid
disease. will discuss with EP, consideration for initiation of AAD if patient agreeable
-will replete K and mag.
-TSH pending, on methimazole as OP
-continue OAC with eliquis
-GDMT of CM as BP tolerates. was on low dose lisinopril as OP, currently on hold
-does not appear ready for DC from cardiac standpoint
-OP EP follow up to be arranged.
-Discussed with nursing
Progress Note - Dressing Room Attendant
Subjective
Date of Service: January 17, 2025
reports feeling well. no palpitations.
Objective
Labs:
01/17/25 06:59
01/17/25 06:59
Labs
Hgb 12.0 g/dL (12.0-16.0) 01/17/25 06:59
Hct 35.3 % (37.0-47.0) L 01/17/25 06:59
Plt Count 104 10^3/uL (130-400) L 01/17/25 06:59
Sodium 138 mmol/L (135-145) 01/17/25 06:59
Potassium 3.0 mmol/L (3.5-5.1) L 01/17/25 06:59
BUN 13 mg/dl (7-17) 01/17/25 06:59
Creatinine 0.6 mg/dL (0.6-1.0) 01/17/25 06:59
Glucose 64 mg/dl (70-99) L 01/17/25 06:59
Troponins
01/14/25
15:06
Troponin I < 0.012
Vital Signs and I&O:
Vital Signs
Temp Pulse Resp BP Pulse Ox
97.8 F 112 20 98/51 92
01/17/25 11:40 01/17/25 11:40 01/17/25 11:40 01/17/25 11:40 01/17/25 11:40
Vital Signs
Temp Pulse Resp BP Pulse Ox
97.8 F 112 20 98/51 92
01/17/25 11:40 01/17/25 11:40 01/17/25 11:40 01/17/25 11:40 01/17/25 11:40
Intake & Output
01/15/25 01/16/25 01/17/25 01/18/25
07:59 07:59 07:59 07:59
Intake Total 1615 / 1615 480 / 480 660 / 660
Output Total 1150 / 1150
Balance 465 / 465 480 / 480 660 / 660
Physical Exam
Physical Exam
GEN: No distress, awake, alert, oriented x3
HEENT: supple, anicteric, mmm, eomi
LUNGS: Diminished BS B/L, no wheezes
CV: Irreg, S1/S2, no murmur
ABD: soft, BS+, NT/ND
EXT: No cyanosis, clubbing, edema
NEURO: Gross non-focal
SKIN: Warm, pink, dry. No rash
[2025-01-17 14:31] LABS: Free T4 1.04 ng/dl (0.78-2.19)
[2025-01-17 15:02] LABS: Magnesium 2.4 mg/dl (1.6-2.3); Potassium 2.9 mmol/L (3.5-5.1)
--- NOTE | 2025-01-17 15:15 | W.PN.UPDATE ---
Update Note
Progress Note Update
electrolytes repeated - mag improved to 2.4 however K remains low at 2.9. s/p 40 mEq po already which suspect will take longer time to be absorbed. will give additional 20mEq K rider and reassess K in AM. will plan to start sotalol in AM.
[2025-01-17 17:04] LABS: Glucose - Point of Care 129 mg/dl (70-99)
[2025-01-17] MEDS: STERILE WATER FOR INJECTION 20 ML IV (17:26)
[2025-01-17] MEDS: ROCEPHIN 2000 MG IV (17:27)
[2025-01-17] MEDS: KCL 270 MEQ IV (18:25)
[2025-01-17 21:12] LABS: Glucose - Point of Care 118 mg/dl (70-99)
[2025-01-17] MEDS: LANTUS 0.08 UNITS SC (22:28)
[2025-01-18] VITALS (8 sets, daily range): BP systolic 99–157; BP diastolic 69–135
--- NOTE | 2025-01-18 00:08 | PTCARENOTE ---
Pt was transferred from into 2244 for Sotalol loading in the am. Pt AAOx3 ambulating in the room. A fib/ A-Flutter on the monitor 85-100 rate VSS. Pulse ox 89% on RA placed on 2 LPM NC Pt is agreeable to plan of care. Call brooke within reach.
[2025-01-18 03:00] LABS: Glucose - Point of Care 97 mg/dl (70-99)
[2025-01-18 03:40] LABS: Hematocrit 36.5 % (37.0-47.0); Hemoglobin 12.1 g/dL (12.0-16.0); Mean Corp Hgb Conc. 33.2 g/dL (33.0-37.0); Mean Corpuscular Hgb 31.5 pg (27.0-31.0); Mean Corpuscular Volume 95.1 fL (81.0-99.0); Mean Platelet Volume 11.9 fL (7.4-10.4); Platelet Count 99 10^3/uL (130-400); Red Blood Cell Count 3.84 10^6/uL (4.20-5.40); Red Cell Dist. Width 17.9 % (11.5-14.5); White Blood Cell Count 5.1 10^3/uL (4.8-10.8)
[2025-01-18 03:55] LABS: Blood Urea Nitrogen 12 mg/dl (7-17); Calcium 8.1 mg/dl (8.4-10.2); Carbon Dioxide 38 mmol/L (22-30); Chloride 95 mmol/L (98-107); Estimated Creatinine Clearance 96 ml/min; Glucose 105 mg/dl (70-99); Magnesium 1.7 mg/dl (1.6-2.3); Potassium 3.6 mmol/L (3.5-5.1); Sodium 137 mmol/L (135-145); eGFR > 60.00
[2025-01-18] MEDS: AMOXIL 1000 MG PO ×2 (06:45→16:05)
[2025-01-18] MEDS: MAGNESIUM SULFATE 50 IV (06:45)
[2025-01-18] MEDS: KCL 40 MEQ PO (06:45)
[2025-01-18] MEDS: SYMBICORT 80/4.5 MCG INHALER 2 PUFF INH ×2 (07:15→17:21)
[2025-01-18] MEDS: TAPAZOLE 5 MG PO (07:53)
[2025-01-18] MEDS: LIPITOR 40 MG PO (07:53)
[2025-01-18] MEDS: TOPROL XL 25 MG PO ×2 (07:53→20:34)
[2025-01-18] MEDS: CLARITIN 10 MG PO (07:53)
[2025-01-18] MEDS: DALIRESP 500 MCG PO (07:53)
[2025-01-18] MEDS: VITAMIN B-12 1000 MCG PO (07:53)
[2025-01-18] MEDS: LYRICA 150 MG PO ×2 (07:53→20:33)
[2025-01-18] MEDS: ZOLOFT 100 MG PO (07:53)
[2025-01-18] MEDS: ELIQUIS 5 MG PO ×2 (07:53→20:34)
[2025-01-18 08:03] LABS: Glucose - Point of Care 114 mg/dl (70-99)
[2025-01-18] MEDS: NOVOLOG FLEXPEN-MODERATE RESISTANCE SC (08:06)
--- NOTE | 2025-01-18 09:16 | W.PN.ID1 ---
Date of Service
Date of Service: January 18, 2025
Today's Communication
Continue amoxicillin.
Assessment / Plan
# Invasive pneumococcal pneumonia
# Streptococcus pneumoniae bacteremia
# s/p Severe sepsis
# Leukocytosis resolved
# TIKI resolved
-Repeat blood cultures neg to date
-s/p 5d ceftriaxone
- Continue amoxicillin 1000 mg po q8h through 01/26/25
-Recommend PCV20 vaccine at local pharmacy when fully recovered.
# Afib
- For sotalolol loading, per Cardiology.
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
Hypertension
COPD
Paroxysmal atrial fibrillation
Hyperthyroidism
HFpEF
Depression/anxiety
Chief Complaint
-: Pneumonia and Bacteremia
Subjective / Review of Systems
DC yesterday was cancelled. She was transfer to Cardiology Unit for sotalol loading.
No respiratory complaints today.
Vital Signs / Physical Exam
Vital Signs
Vital Signs
Temp Pulse Resp BP Pulse Ox
98.3 F 88 18 110/69 91
01/18/25 07:57 01/18/25 07:17 01/18/25 07:57 01/18/25 02:57 01/18/25 08:00
Physical Exam
Constitutional: No Acute Distress and Comfortable
Cardiovascular: Regular Rate, Irregular Rate and S1/S2
Pulmonary: Rales (left base)
Gastrointestinal: Soft, Non Tender, Non Distended and Normal Bowel Sounds
Extremities: Negative Edema
Neurological: AO x 3
Objective Data
Lab Data
Lab Results
01/18/25 03:06
01/18/25 03:06
Estimated Creat Clear 96 ml/min 01/18/25 03:06
Lactic Acid 1.2 mmol/L (0.7-2.0) 01/14/25 04:54
Total Bilirubin 0.7 mg/dl (0.2-1.3) 01/17/25 06:59
AST 17 U/L (14-36) 01/17/25 06:59
ALT 13 U/L (0-35) 01/17/25 06:59
Alkaline Phosphatase 87 U/L (38-126) 01/17/25 06:59
Most recent labs reviewed.
Micro Results:
01/14/25 09:41 Blood Culture - Preliminary
Blood/Venous No Growth in 72 hours- Final report to follow
01/14/25 09:54 Blood Culture - Preliminary
Blood/Venous No Growth in 72 hours- Final report to follow
01/13/25 18:35 Blood Culture - Final
Blood/Venous Streptococcus pneumoniae
Gram Stain - Final
01/13/25 18:34 Blood Culture - Final
Blood/Venous Streptococcus pneumoniae
Gram Stain - Final
01/14/25 02:19 Urine Culture - Final
Urine
01/14/25 01:49 Nasal Screen MRSA (PCR) - Final
Nose MRSA not detected - performed by PCR methodology.
01/13/25 18:13 Influenza Types A & B (TICO) - Final
Nasal Swab Negative for Influenza A & B, NAAT
Negative results must be combined with clinical observations
and patient history.
Nucleic Acid Amplification test (NAAT)performed on the
[employer] platform.
01/13/25 CXR: Left lower lobe pneumonia. Probable associated pleural effusion, possibly loculated.
01/13/[address]: No acute intracranial abnormality noted. No acute intracranial hemorrhage. No extra axial collection. No skull fracture. Acute superimposed on chronic maxillary sinusitis.
--- NOTE | 2025-01-18 09:50 | W.PN.HOSP.TC ---
Today's Communication/Plan
-
HR mgmt as per cardiology
Assessment / Plan
Assessment / Plan
59yo F with PMHX of HLD, DM, COPD, HTN came with SOB, managed for multilobular strep pneumonia CAP with bacteremia, confirmed on CT. Weaned off O2 on 01/17/25, repeated Bcx remained NTD, due to poor HR control D/C was held and cardiology planning on
additional rate/rhythm control
A/P:
#Afib with RVR, paroxysmal
#Chronic HFpEF
#Essential HTN
Card follows
Telemetry
adjusting rate control
cont Eliquis
#S/pneumonia CAP with bacteremia and septic shock
#Acute hypoxic failure 2/2 above
Weaned off pressors
Wean off O2
on Amoxicillin till 01/26/[address] chest without loculated pleural effusion
repeated Bcx NTD
#DM type 2 with neuropathy
Insulin, Accuchecks, DM diet
#Hypomagnesemia
replete and folow
#HLD
#vit D deficiency
#B12 deficiency
#COPD not in exacerbation
#Hyperthyroidism
cont home meds
stop hydrocortisone
#Hypokalemia
#Hypomagnesemia
replete and follow
#Reactive thrombocytopenia
not on heparin product
follow
#Nicotine dependency
nicoderm
cessation advised
DVT ppx on Eliquis
Full code
I have spent at least 38min reviewing chart, test results, communication with consultants and direct patient care
Anticipated Discharge: > 48 hours
Subjective/Interval History
-
Date of Service: January 18, 2025
Objective Data
-
Labs:
Laboratory Results
01/18/25
03:06
WBC 5.1
Hgb 12.1
Hct 36.5 L
Plt Count 99 L
Sodium 137
Potassium 3.6
Chloride 95 L
Carbon Dioxide 38 H
BUN 12
Creatinine 0.5 L
Glucose 105 H
Calcium 8.1 L
Vital Signs:
Vital Signs
Temp Pulse Resp BP Pulse Ox
98.3 F 88 18 110/69 91
01/18/25 07:57 01/18/25 07:17 01/18/25 07:57 01/18/25 02:57 01/18/25 08:00
I&O
01/17/25 01/18/25 01/19/25
06:59 06:59 06:59
Intake Total 660 / 660 960 / 960 400 / 400
Balance 660 / 660 960 / 960 400 / 400
Review of Systems
-
History Source: Patient
All other systems: Reviewed and negative
Physical Exam
-
General: No Apparent Distress
HEENT: Normocephalic
Respiratory: Clear to Auscultation
Cardiac: Irregular Rhythm and Tachycardic
Neuro: Awake, Alert, Oriented and AO x 3
Psych: Calm
--- NOTE | 2025-01-18 10:11 | W.PN.CARDCBS ---
Addendum entered and electronically signed by Eder Daley DO 01/18/25 15:10:
I saw and examined the patient.
The Nascar Driver's note was reviewed and I agree with the note.
Comment:
Patient resting comfortably in bed, no complaints. Denies chest pain, shortness of breath, palpitations, weakness.
GEN: No distress, awake, alert, oriented x3, nasal cannula
HEENT: supple, anicteric, mmm, eomi
LUNGS: Diminished BS B/L, no wheezes
CV: Regular rate and rhythm, occasional ectopy,, S1/S2, no murmur
ABD: soft, BS+, NT/ND
EXT: No cyanosis, clubbing, edema
NEURO: Gross non-focal
SKIN: Warm, pink, dry. No rash
Telemetry demonstrates atrial fibrillation and return of sinus rhythm with PVCs
EKG performed 01/18/2025 shows sinus rhythm 70 bpm PVCs, QT/QTc 424/487ms , manual measurement 412/478 ms
A/P as below
Repeat electrolytes goal potassium greater than 4, magnesium greater than 2
Continue metoprolol, Eliquis
Sotalol 80 mg twice daily, check EKG 2 hours post dose for QT monitoring; hold for QT/QTc greater than 500
Monitor renal function, intake and output
Monitor on telemetry, cannot discontinue or hold telemetry while on drug load
Original Note:
Today's Communication / Plan
-
initiate sotalol 80mg BID. follow QTc
continue toprol, eliquis
follow electrolytes
GDMT as able
Impression / Plan
-
Primary Therapeutic Radiologist: Dr. Hartmann
Impression:
Presentation 01/13/2025 with mechanical fall, weakness, extreme fatigue, shortness of breath
Sepsis with Leukocytosis, hypotension initially requiring pressors, TIKI, tachycardia
Positive blood culture with gram-positive cocci in pairs and chains
Left lower lobe pneumonia with left pleural effusion
Atrial fibrillation with rapid ventricular response
TIKI
Concern for UTI
Thrombocytopenia, platelets 108,000
Chronic HFpEF, possible acute exacerbation, euvolemic now
Cardiomyopathy EF 40-45% by echo 08/2024
PAF
history of PVI/flutter ablation in 2022
Status post cardioversion 09/28/2024
Chronic OAC with eliquis
HTN
HLD
DM2
Hyperthyroidism, Low TSH with compensated free T4 09/13/24
Depression/anxiety
Smoker
ECHO 02/14/24: EF 45 to 50%, abnormal paradoxical septal motion consistent with IVCD, no significant valvular disease
ECHO 09/13/24: EF 40 to 45%, global hypokinesis with regional variability, mild concentric LVH, mild TR, PAP 37 mmHg, trivial pericardial effusion, no significant change compared to prior
Echo 01/15/2025: EF 40%, global hypokinesis with regional variability, mild concentric LVH, trace TR, PAP 20 to 25 mmHg, trivial pericardial effusion, no significant change compared to prior
Plan:
-Continue treatment of bacteremia/pneumonia per primary service/infectious disease
-Remains in atrial fibrillation with elevated heart rates. Outpatient Cardizem stopped as EF reduced. Continue Toprol 25 mg twice daily
-After discussion with the EP 01/17, plan for initiation of sotalol. Electrolytes improved this morning, continue repletion as needed. QTc prolonged by EKG, however suspect inaccurate as an atrial arrhythmia. Will initiate sotalol 80 mg twice
daily. of note, is also on zoloft. follow QTc
-Continue anticoagulation with Eliquis
-TSH/free T4 normal this admission, on methimazole as an outpatient
-Echo 01/15 with results as above, EF stable at 40%
-GDMT of cardiomyopathy as blood pressure tolerates. Low-dose outpatient lisinopril presently on hold
-Discussed with nursing
Progress Note - Therapeutic Radiologist
Subjective
Date of Service: January 18, 2025
Denies chest pain, palpitations. Remains with cough
Objective
Labs:
01/18/25 03:06
01/18/25 03:06
Labs
Hgb 12.1 g/dL (12.0-16.0) 01/18/25 03:06
Hct 36.5 % (37.0-47.0) L 01/18/25 03:06
Plt Count 99 10^3/uL (130-400) L 01/18/25 03:06
Sodium 137 mmol/L (135-145) 01/18/25 03:06
Potassium 3.6 mmol/L (3.5-5.1) 01/18/25 03:06
BUN 12 mg/dl (7-17) 01/18/25 03:06
Creatinine 0.5 mg/dL (0.6-1.0) L 01/18/25 03:06
Glucose 105 mg/dl (70-99) H 01/18/25 03:06
Vital Signs and I&O:
Vital Signs
Temp Pulse Resp BP Pulse Ox
98.3 F 88 18 110/69 91
01/18/25 07:57 01/18/25 07:17 01/18/25 07:57 01/18/25 02:57 01/18/25 08:00
Vital Signs
Temp Pulse Resp BP Pulse Ox
98.3 F 88 18 110/69 91
01/18/25 07:57 01/18/25 07:17 01/18/25 07:57 01/18/25 02:57 01/18/25 08:00
Intake & Output
01/16/25 01/17/25 01/18/25 01/19/25
07:59 07:59 07:59 07:59
Intake Total 480 / 480 660 / 660 960 / 1360 400 / 400
Balance 480 / 480 660 / 660 960 / 1360 400 / 400
Physical Exam
Physical Exam
GEN: No distress, awake, alert, oriented x3
HEENT: supple, anicteric, mmm, eomi
LUNGS: Diminished BS B/L, no wheezes
CV: Irreg irreg, S1/S2, no murmur
ABD: soft, BS+, NT/ND
EXT: No cyanosis, clubbing, edema
NEURO: Gross non-focal
SKIN: Warm, pink, dry. No rash
[2025-01-18] MEDS: BETAPACE 80 MG PO ×2 (10:28→22:11)
--- NOTE | 2025-01-18 10:48 | PTCARENOTE ---
Rec'd pt at handoff. AOX3. Tele- Afib 100-130s. Assessment completed as documented. Pt has no complaints at this time. Baseline EKG obtained and 1st dose of sotalol ordered and administered. Currently in bed; call mendy w/in reach.
--- NOTE | 2025-01-18 12:28 | CM ---
Addendum entered by ANEL Correa 01/18/25 15:15:
Met w/ patient at bedside. We reviewed DC plan for home w/ [facility]; pt. agreeable. No other needs identified @ this time.
CM to cont. to follow.
Original Note:
CM following for DC planning needs.
Pt. transferred back to IVU. Pt. has initiated Sotalol.
Noted updated PT assessment, 01/17- recommendation for home health.
Antic. DC plan is for home w/ [facility]. Referral has been made/ accepted.
Will update [facility] of DC date.
Plan is for home w/ [facility]
[2025-01-18 12:47] LABS: Glucose - Point of Care 189 mg/dl (70-99)
[2025-01-18] MEDS: NOVOLOG FLEXPEN-MODERATE RESISTANCE 1 UNITS SC ×2 (13:46→18:32)
--- NOTE | 2025-01-18 14:46 | PTCARENOTE ---
Pt converted to SR. Ekg obtained to confirm. HR 70s. Kaycee DESAI made aware.
[2025-01-18] MEDS: STERILE WATER FOR INJECTION IV (17:12)
[2025-01-18 17:43] LABS: Glucose - Point of Care 167 mg/dl (70-99)
[2025-01-18 21:51] LABS: Glucose - Point of Care 172 mg/dl (70-99)
[2025-01-19] VITALS (8 sets, daily range): BP systolic 94–139; BP diastolic 62–93
[2025-01-19] MEDS: AMOXIL 1000 MG PO ×4 (00:39→23:11)
--- NOTE | 2025-01-19 00:55 | PTCARENOTE ---
Assumed care of the pt @ 1900. Pt AAOx3 SR with PVC's on the monitor VSS 2nd Sotalol dose given follow up QTc 497. Call brooke within reach.
[2025-01-19 04:47] LABS: Hemoglobin 11.3 g/dL (12.0-16.0); Mean Corp Hgb Conc. 33.2 g/dL (33.0-37.0); Mean Corpuscular Hgb 31.7 pg (27.0-31.0); Mean Corpuscular Volume 95.5 fL (81.0-99.0); Mean Platelet Volume 12.2 fL (7.4-10.4); Platelet Count 118 10^3/uL (130-400); Red Blood Cell Count 3.56 10^6/uL (4.20-5.40); Red Cell Dist. Width 17.4 % (11.5-14.5); White Blood Cell Count 4.7 10^3/uL (4.8-10.8)
[2025-01-19 05:11] LABS: Blood Urea Nitrogen 13 mg/dl (7-17); Calcium 8.2 mg/dl (8.4-10.2); Carbon Dioxide 39 mmol/L (22-30); Chloride 93 mmol/L (98-107); Estimated Creatinine Clearance 96 ml/min; Glucose 153 mg/dl (70-99); Magnesium 1.4 mg/dl (1.6-2.3); Potassium 3.8 mmol/L (3.5-5.1); Sodium 134 mmol/L (135-145); eGFR > 60.00
[2025-01-19] MEDS: MAGNESIUM SULFATE 100 IV (07:34)
[2025-01-19] MEDS: SYMBICORT 80/4.5 MCG INHALER 2 PUFF INH ×2 (08:06→19:16)
[2025-01-19] MEDS: LIPITOR 40 MG PO (08:28)
[2025-01-19] MEDS: DALIRESP 500 MCG PO (08:28)
[2025-01-19] MEDS: LYRICA 150 MG PO ×2 (08:28→19:49)
[2025-01-19] MEDS: TOPROL XL 25 MG PO ×2 (08:28→19:49)
[2025-01-19] MEDS: CLARITIN 10 MG PO (08:28)
[2025-01-19] MEDS: TAPAZOLE 5 MG PO (08:28)
[2025-01-19] MEDS: ZOLOFT 100 MG PO (08:29)
[2025-01-19] MEDS: ELIQUIS 5 MG PO ×2 (08:29→19:49)
[2025-01-19] MEDS: VITAMIN B-12 1000 MCG PO (08:29)
[2025-01-19 08:35] LABS: Glucose - Point of Care 131 mg/dl (70-99)
[2025-01-19] MEDS: NOVOLOG FLEXPEN-MODERATE RESISTANCE SC (08:35)
[2025-01-19] MEDS: BETAPACE 80 MG PO (09:11)
--- NOTE | 2025-01-19 11:12 | W.PN.HOSP.TC ---
Today's Communication/Plan
-
cont sotalol load as per cardio
Assessment / Plan
Assessment / Plan
59yo F with PMHX of HLD, DM, COPD, HTN came with SOB, managed for multilobular strep pneumonia CAP with bacteremia, confirmed on CT. Weaned off O2 on 01/17/25, repeated Bcx remained NTD, due to poor HR control D/C was held and cardiology planning on
additional rate/rhythm control: converted to sinus with Sotalol load
A/P:
#Afib with RVR, paroxysmal
#Chronic HFpEF
#Essential HTN
Card follows
Telemetry
adjusting rate control
cont Eliquis
#S/pneumonia CAP with bacteremia and septic shock
#Acute hypoxic failure 2/2 above
Weaned off pressors
Wean off O2
on Amoxicillin till 01/26/[address] chest without loculated pleural effusion
repeated Bcx NTD
#DM type 2 with neuropathy
Insulin, Accuchecks, DM diet
#Hypomagnesemia
replete and folow
#HLD
#vit D deficiency
#B12 deficiency
#COPD not in exacerbation
#Hyperthyroidism
cont home meds
stop hydrocortisone
#Hypokalemia
#Hypomagnesemia
replete and follow
#Reactive thrombocytopenia
not on heparin product
follow
#Nicotine dependency
nicoderm
cessation advised
DVT ppx on Eliquis
Full code
I have spent at least 38min reviewing chart, test results, communication with consultants and direct patient care
Anticipated Discharge: 24 - 48 hours
Subjective/Interval History
-
Date of Service: January 19, 2025
Objective Data
-
Labs:
Laboratory Results
01/19/25
04:31
WBC 4.7 L
Hgb 11.3 L
Hct 34.0 L
Plt Count 118 L
Sodium 134 L
Potassium 3.8
Chloride 93 L
Carbon Dioxide 39 H
BUN 13
Creatinine 0.5 L
Glucose 153 H
Calcium 8.2 L
Vital Signs:
Vital Signs
Temp Pulse Resp BP Pulse Ox
97.8 F 75 14 130/78 88
01/19/25 07:30 01/19/25 09:13 01/19/25 08:10 01/19/25 09:13 01/19/25 08:10
I&O
01/18/25 01/19/25 01/20/25
06:59 06:59 06:59
Intake Total 960 / 960 520 / 520 400 / 400
Balance 960 / 960 520 / 520 400 / 400
Review of Systems
-
History Source: Patient
All other systems: Reviewed and negative
Physical Exam
-
General: Comfortable
HEENT: Normocephalic
Respiratory: Clear to Auscultation
Cardiac: Regular Rhythm
GI: Soft, Nontender and Nondistended
Neuro: Awake, Alert, Oriented and AO x 3
Psych: Calm
[2025-01-19] MEDS: MAGNESIUM OXIDE 500 MG PO (11:55)
[2025-01-19] MEDS: KCL 40 MEQ PO (11:55)
--- NOTE | 2025-01-19 13:07 | PTCARENOTE ---
Addendum entered by Cony Sharma RN 01/19/25 16:30:
Repeat EKG obtained at 1600. QTc 516. Bart LI made aware.
Original Note:
Sotalol dose #3 administered. Ekg obtained and QTc 521. Bart LI aware and orders placed. See JAN.
[2025-01-19 13:23] LABS: Glucose - Point of Care 177 mg/dl (70-99)
--- NOTE | 2025-01-19 13:37 | W.PN.CARDCBS ---
Today's Communication / Plan
-
Repeat EKG 01/19/2025
Decrease sotalol dosing 40 mg twice daily
Replete electrolytes
Monitor on telemetry
Impression / Plan
-
Primary Licensed Optician: Dr. Hartmann
Impression:
Presentation 01/13/2025 with mechanical fall, weakness, extreme fatigue, shortness of breath
Sepsis with Leukocytosis, hypotension initially requiring pressors, TIKI, tachycardia
Positive blood culture with gram-positive cocci in pairs and chains
Left lower lobe pneumonia with left pleural effusion
Atrial fibrillation with rapid ventricular response
TIKI
Concern for UTI
Thrombocytopenia, platelets 108,000
Chronic HFpEF, possible acute exacerbation, euvolemic now
Cardiomyopathy EF 40-45% by echo 08/2024
PAF
history of PVI/flutter ablation in 2022
Status post cardioversion 09/28/2024
Chronic OAC with eliquis
HTN
HLD
DM2
Hyperthyroidism, Low TSH with compensated free T4 09/13/24
Depression/anxiety
Smoker
ECHO 02/14/24: EF 45 to 50%, abnormal paradoxical septal motion consistent with IVCD, no significant valvular disease
ECHO 09/13/24: EF 40 to 45%, global hypokinesis with regional variability, mild concentric LVH, mild TR, PAP 37 mmHg, trivial pericardial effusion, no significant change compared to prior
Echo 01/15/2025: EF 40%, global hypokinesis with regional variability, mild concentric LVH, trace TR, PAP 20 to 25 mmHg, trivial pericardial effusion, no significant change compared to prior
Plan:
-Continue treatment of bacteremia/pneumonia per primary service/infectious disease
-Return to sinus rhythm 01/18/2025, initiated on sotalol 80 mg twice daily. QT/QTc initially 420/487 ms however this has prolonged following 2 doses at 80 mg twice daily. Will plan for repeat EKG this afternoon 01/19/2025 and reduction in dosing to
40 mg twice daily. If QT/QTc remains greater than 500, may need further reduction or discontinuation. Continue Toprol 25 mg twice daily
-Significant electrolyte abnormality noted with hypokalemia hypomagnesemia, replete goal potassium greater than 4, magnesium greater than 2
-Continue anticoagulation with Eliquis
-TSH/free T4 normal this admission, on methimazole as an outpatient
-Echo 01/15 with results as above, EF stable at 40%
-GDMT of cardiomyopathy as blood pressure tolerates. Low-dose outpatient lisinopril presently on hold
-Discussed with nursing
Progress Note - Licensed Optician
Subjective
Date of Service: January 19, 2025
Patient seen and examined. No acute events overnight. Patient resting comfortably in bed. Patient [place] any chest pain, shortness of breath, palpitations, or weakness. Telemetry demonstrates sinus rhythm, PVCs.
Objective
Labs:
01/19/25 04:31
01/19/25 04:31
Labs
Hgb 11.3 g/dL (12.0-16.0) L 01/19/25 04:31
Hct 34.0 % (37.0-47.0) L 01/19/25 04:31
Plt Count 118 10^3/uL (130-400) L 01/19/25 04:31
Sodium 134 mmol/L (135-145) L 01/19/25 04:31
Potassium 3.8 mmol/L (3.5-5.1) 01/19/25 04:31
BUN 13 mg/dl (7-17) 01/19/25 04:31
Creatinine 0.5 mg/dL (0.6-1.0) L 01/19/25 04:31
Glucose 153 mg/dl (70-99) H 01/19/25 04:31
Vital Signs and I&O:
Vital Signs
Temp Pulse Resp BP Pulse Ox
97.7 F 67 18 94/65 94
01/19/25 11:29 01/19/25 13:00 01/19/25 11:29 01/19/25 11:42 01/19/25 11:29
Vital Signs
Temp Pulse Resp BP Pulse Ox
97.7 F 67 18 94/65 94
01/19/25 11:29 01/19/25 13:00 01/19/25 11:29 01/19/25 11:42 01/19/25 11:29
Intake & Output
01/17/25 01/18/25 01/19/25 01/20/25
06:59 06:59 06:59 06:59
Intake Total 660 / 660 960 / 960 520 / 520 400 / 400
Balance 660 / 660 960 / 960 520 / 520 400 / 400
Physical Exam
Physical Exam
GEN: No distress, awake, alert, oriented x3
HEENT: supple, anicteric, mmm, eomi
LUNGS: Diminished BS B/L, no wheezes
CV: Regular rate and rhythm, S1/S2, no murmur
ABD: soft, BS+, NT/ND
EXT: No cyanosis, clubbing, edema
NEURO: Gross non-focal
SKIN: Warm, pink, dry. No rash
[2025-01-19] MEDS: NOVOLOG FLEXPEN-MODERATE RESISTANCE 1 UNITS SC ×2 (13:42→18:12)
--- NOTE | 2025-01-19 16:27 | PTCARENOTE ---
Pt rang call brooke complaining of pain under tongue while eating. On assessment, pt tongue w/ white patches under tongue. Marcos LI aware. Mouthwash provided.
[2025-01-19] MEDS: STERILE WATER FOR INJECTION IV (16:55)
[2025-01-19 18:12] LABS: Glucose - Point of Care 153 mg/dl (70-99)
--- NOTE | 2025-01-19 20:42 | PTCARENOTE ---
Pt rec'd in bed no complaints at present. Sinus on telemetry. Insp wheeze throughout.
[2025-01-19 22:16] LABS: Glucose - Point of Care 145 mg/dl (70-99)
[2025-01-20] VITALS (9 sets, daily range): BP systolic 81–128; BP diastolic 57–80
[2025-01-20 05:40] LABS: % Basophils 0.2 % (0-2); % Eosinophils 2.2 % (0-6); % Immature Granulocytes 4.4 % (0-0.5); % Lymphocytes 20.9 % (20.5-51.1); % Monocytes 6.1 % (1.7-9.3); % Neutrophils 66.2 % (42.2-75.2); Absolute Eosinophils 0.1 10^3/uL (0-0.7); Absolute Immature Granulocytes 0.2 10^3/uL (0-0.05); Absolute Monocytes 0.3 10^3/uL (0.1-0.6); Hemoglobin 11.8 g/dL (12.0-16.0); Mean Corp Hgb Conc. 32.8 g/dL (33.0-37.0); Mean Corpuscular Hgb 31.3 pg (27.0-31.0); Mean Corpuscular Volume 95.5 fL (81.0-99.0); Mean Platelet Volume 11.1 fL (7.4-10.4); Nucleated Red Blood Cells % 0 %; Platelet Count 142 10^3/uL (130-400); Red Blood Cell Count 3.77 10^6/uL (4.20-5.40); Red Cell Dist. Width 17.2 % (11.5-14.5); White Blood Cell Count 4.6 10^3/uL (4.8-10.8)
[2025-01-20 05:50] LABS: ALT (SGPT) 11 U/L (0-35); AST (SGOT) 14 U/L (14-36); Alkaline Phosphatase 104 U/L (38-126); Blood Urea Nitrogen 14 mg/dl (7-17); Calcium 8.3 mg/dl (8.4-10.2); Carbon Dioxide 35 mmol/L (22-30); Chloride 95 mmol/L (98-107); Estimated Creatinine Clearance 96 ml/min; Glucose 139 mg/dl (70-99); Magnesium 1.8 mg/dl (1.6-2.3); Potassium 4.3 mmol/L (3.5-5.1); Sodium 134 mmol/L (135-145); Total Bilirubin 0.7 mg/dl (0.2-1.3); Total Protein 5.6 g/dl (6.3-8.2); eGFR > 60.00
[2025-01-20 07:56] LABS: Glucose - Point of Care 164 mg/dl (70-99)
[2025-01-20] MEDS: ELIQUIS 5 MG PO ×2 (07:56→19:47)
[2025-01-20] MEDS: TAPAZOLE 5 MG PO (07:57)
[2025-01-20] MEDS: VITAMIN B-12 1000 MCG PO (07:57)
[2025-01-20] MEDS: TOPROL XL 25 MG PO ×2 (07:57→19:46)
[2025-01-20] MEDS: LYRICA 150 MG PO ×2 (07:57→19:46)
[2025-01-20] MEDS: AMOXIL 1000 MG PO ×3 (07:57→23:30)
[2025-01-20] MEDS: DALIRESP 500 MCG PO (07:57)
[2025-01-20] MEDS: ZOLOFT 100 MG PO (07:57)
[2025-01-20] MEDS: CLARITIN 10 MG PO (07:57)
[2025-01-20] MEDS: LIPITOR 40 MG PO (07:57)
[2025-01-20] MEDS: SYMBICORT 80/4.5 MCG INHALER 2 PUFF INH ×2 (08:26→19:16)
[2025-01-20] MEDS: NOVOLOG FLEXPEN-MODERATE RESISTANCE 1 UNITS SC (09:00)
[2025-01-20] MEDS: BETAPACE 40 MG PO ×2 (09:01→19:46)
--- NOTE | 2025-01-20 09:23 | W.PN.CARDCBS ---
Today's Communication / Plan
-
Sotalol 40 mg twice daily, monitor QT/QTc
Replete electrolytes
Monitor renal function
Impression / Plan
-
Primary [place] Winder: Dr. Hartmann
Impression:
Presentation 01/13/2025 with mechanical fall, weakness, extreme fatigue, shortness of breath
Sepsis with Leukocytosis, hypotension initially requiring pressors, TIKI, tachycardia
Positive blood culture with gram-positive cocci in pairs and chains
Left lower lobe pneumonia with left pleural effusion
Atrial fibrillation with rapid ventricular response
TIKI
Concern for UTI
Thrombocytopenia, platelets 108,000
Chronic HFpEF, possible acute exacerbation, euvolemic now
Cardiomyopathy EF 40-45% by echo 08/2024
PAF
history of PVI/flutter ablation in 2022
Status post cardioversion 09/28/2024
Chronic OAC with eliquis
HTN
HLD
DM2
Hyperthyroidism, Low TSH with compensated free T4 09/13/24
Depression/anxiety
Smoker
ECHO 02/14/24: EF 45 to 50%, abnormal paradoxical septal motion consistent with IVCD, no significant valvular disease
ECHO 09/13/24: EF 40 to 45%, global hypokinesis with regional variability, mild concentric LVH, mild TR, PAP 37 mmHg, trivial pericardial effusion, no significant change compared to prior
Echo 01/15/2025: EF 40%, global hypokinesis with regional variability, mild concentric LVH, trace TR, PAP 20 to 25 mmHg, trivial pericardial effusion, no significant change compared to prior
Plan:
-Continue treatment of bacteremia/pneumonia per primary service/infectious disease
-Return to sinus rhythm 01/18/2025, initiated on sotalol 80 mg twice daily. QT/QTc initially 420/487 ms however this has prolonged following 2 doses at 80 mg twice daily. Repeat EKG afternoon 01/19/2025 noted improved but increased QT interval.
P.m. dose held. Patient to start sotalol 40 mg twice daily today 01/17/2025. Going forward, if QT/QTc remains greater than 500, may need further reduction or discontinuation. Continue Toprol 25 mg twice daily
-Significant electrolyte abnormality noted with hypokalemia hypomagnesemia, replete goal potassium greater than 4, magnesium greater than 2, this is improving
-Continue anticoagulation with Eliquis
-TSH/free T4 normal this admission, on methimazole as an outpatient
-Echo 01/15 with results as above, EF stable at 40%
-GDMT of cardiomyopathy as blood pressure tolerates. Low-dose outpatient lisinopril presently on hold
-Discussed with nursing
Progress Note - Spring Winder
Subjective
Date of Service: January 20, 2025
Patient seen and examined's morning. No acute events overnight. Patient resting comfortably in bed. Patient denies any chest pain, shortness of breath, palpitations, lightheadedness, dizziness, or weakness. Telemetry demonstrates sinus rhythm,
previously noted PVCs improving this a.m.
Objective
Labs:
01/20/25 04:24
01/20/25 04:24
Labs
Hgb 11.8 g/dL (12.0-16.0) L 01/20/25 04:24
Hct 36.0 % (37.0-47.0) L 01/20/25 04:24
Plt Count 142 10^3/uL (130-400) D 01/20/25 04:24
Sodium 134 mmol/L (135-145) L 01/20/25 04:24
Potassium 4.3 mmol/L (3.5-5.1) 01/20/25 04:24
BUN 14 mg/dl (7-17) 01/20/25 04:24
Creatinine 0.5 mg/dL (0.6-1.0) L 01/20/25 04:24
Glucose 139 mg/dl (70-99) H 01/20/25 04:24
Vital Signs and I&O:
Vital Signs
Temp Pulse Resp BP Pulse Ox
98.2 F 83 16 128/79 95
01/20/25 07:16 01/20/25 08:33 01/20/25 08:33 01/20/25 07:16 01/20/25 08:33
Vital Signs
Temp Pulse Resp BP Pulse Ox
98.2 F 83 16 128/79 95
01/20/25 07:16 01/20/25 08:33 01/20/25 08:33 01/20/25 07:16 01/20/25 08:33
Intake & Output
01/18/25 01/19/25 01/20/25 01/21/25
06:59 06:59 06:59 06:59
Intake Total 960 / 960 520 / 520 800 / 800
Balance 960 / 960 520 / 520 800 / 800
Physical Exam
Physical Exam
GEN: No distress, awake, alert, oriented x3
HEENT: supple, anicteric, mmm, eomi
LUNGS: Diminished BS B/L, no wheezes
CV: Regular rate and rhythm, S1/S2, no murmur
ABD: soft, BS+, NT/ND
EXT: No cyanosis, clubbing, edema
NEURO: Gross non-focal
SKIN: Warm, pink, dry. No rash
--- NOTE | 2025-01-20 11:13 | PTCARENOTE ---
4th dose of 40 mg Sotalol administered this AM. Ekg obtained and QTc 462. Pt remains in SR.
--- NOTE | 2025-01-20 12:09 | W.PN.HOSP.TC ---
Today's Communication/Plan
-
cont sotalol load as per cardiology: dose adjusted, if stable and HR remains SR with good control - might be able to d/c in AM
Assessment / Plan
Assessment / Plan
59yo F with PMHX of HLD, DM, COPD, HTN came with SOB, managed for multilobular strep pneumonia CAP with bacteremia, confirmed on CT. Weaned off O2 on 01/17/25, repeated Bcx remained NTD, due to poor HR control D/C was held and cardiology planning on
additional rate/rhythm control: converted to sinus with Sotalol load
A/P:
#Afib with RVR, paroxysmal
#Chronic HFpEF
#Essential HTN
Card follows
Telemetry
adjusting rate control
cont Eliquis
#S/pneumonia CAP with bacteremia and septic shock
#Acute hypoxic failure 2/2 above
Weaned off pressors
Wean off O2
on Amoxicillin till 01/26/[address] chest without loculated pleural effusion
repeated Bcx NTD
#DM type 2 with neuropathy
Insulin, Accuchecks, DM diet
#Hypomagnesemia
replete and folow
#HLD
#vit D deficiency
#B12 deficiency
#COPD not in exacerbation
#Hyperthyroidism
cont home meds
stop hydrocortisone
#Hypokalemia
#Hypomagnesemia
replete and follow
#Reactive thrombocytopenia
not on heparin product
follow
#Nicotine dependency
nicoderm
cessation advised
DVT ppx on Eliquis
Full code
I have spent at least 38min reviewing chart, test results, communication with consultants and direct patient care
Anticipated Discharge: 24 - 48 hours
Subjective/Interval History
-
Date of Service: January 20, 2025
Objective Data
-
Labs:
Laboratory Results
01/20/25
04:24
WBC 4.6 L
Hgb 11.8 L
Hct 36.0 L
Plt Count 142 D
Sodium 134 L
Potassium 4.3
Chloride 95 L
Carbon Dioxide 35 H
BUN 14
Creatinine 0.5 L
Glucose 139 H
Calcium 8.3 L
Total Bilirubin 0.7
AST 14
ALT 11
Alkaline Phosphatase 104
Vital Signs:
Vital Signs
Temp Pulse Resp BP Pulse Ox
98.5 F 83 20 128/79 93
01/20/25 11:41 01/20/25 08:33 01/20/25 11:41 01/20/25 07:16 01/20/25 11:41
I&O
01/19/25 01/20/25 01/21/25
06:59 06:59 06:59
Intake Total 520 / 520 800 / 800
Balance 520 / 520 800 / 800
Review of Systems
-
History Source: Patient
All other systems: Reviewed and negative
Physical Exam
-
General: No Apparent Distress
HEENT: Normocephalic
Cardiac: Regular Rhythm
GI: Soft, Nontender and Nondistended
Psych: Calm
[2025-01-20 12:59] LABS: Glucose - Point of Care 208 mg/dl (70-99)
[2025-01-20] MEDS: NOVOLOG FLEXPEN-MODERATE RESISTANCE 3 UNITS SC ×2 (12:59→17:39)
[2025-01-20] MEDS: STERILE WATER FOR INJECTION IV (17:12)
[2025-01-20 17:39] LABS: Glucose - Point of Care 209 mg/dl (70-99)
--- NOTE | 2025-01-20 20:00 | PTCARENOTE ---
Resumed care of pt laying in bed watching TV, AAOx3. HR in the 70's in NSR with occ PVC's/ PAC's on the monitor. POX 95% on RA. Lungs dec at bases. Occ moist non productive cough. + bowel, round abd. Palpable peripheral pulses. Left forearm int
capped. Medications administered as ordered. EKG completed per Sotolol protocol. Sore under nose scabbed and open to air. Pt denies any complaints at this time. Pt ambulatory to bathroom independently when needed. No issues to report at this time.
Call brooke in reach. Will continue to monitor.
[2025-01-20 21:21] LABS: Glucose - Point of Care 221 mg/dl (70-99)
[2025-01-21 04:02] VITALS: BP 100/67
[2025-01-21 04:10] VITALS: BMI 26.5
[2025-01-21 05:14] LABS: Blood Urea Nitrogen 12 mg/dl (7-17); Calcium 8.5 mg/dl (8.4-10.2); Carbon Dioxide 34 mmol/L (22-30); Chloride 99 mmol/L (98-107); Estimated Creatinine Clearance 84 ml/min; Glucose 157 mg/dl (70-99); Magnesium 1.6 mg/dl (1.6-2.3); Potassium 4.1 mmol/L (3.5-5.1); Sodium 135 mmol/L (135-145); eGFR > 60.00
[2025-01-21 07:23] VITALS: BP 132/64
[2025-01-21] MEDS: SYMBICORT 80/4.5 MCG INHALER 2 PUFF INH (07:46)
[2025-01-21] MEDS: DALIRESP 500 MCG PO (07:49)
[2025-01-21] MEDS: ZOLOFT 100 MG PO (07:50)
[2025-01-21] MEDS: LYRICA 150 MG PO (07:50)
[2025-01-21] MEDS: LIPITOR 40 MG PO (07:50)
[2025-01-21] MEDS: ELIQUIS 5 MG PO (07:50)
[2025-01-21] MEDS: AMOXIL 1000 MG PO ×2 (07:51→15:36)
[2025-01-21] MEDS: CLARITIN 10 MG PO (07:52)
[2025-01-21] MEDS: TAPAZOLE 5 MG PO (07:52)
[2025-01-21] MEDS: BETAPACE 40 MG PO (07:52)
[2025-01-21] MEDS: VITAMIN B-12 1000 MCG PO (07:53)
[2025-01-21] MEDS: TOPROL XL 25 MG PO (07:53)
[2025-01-21 07:57] LABS: Glucose - Point of Care 167 mg/dl (70-99)
[2025-01-21] MEDS: NOVOLOG FLEXPEN-MODERATE RESISTANCE 1 UNITS SC (08:46)
--- NOTE | 2025-01-21 09:03 | W.PN.HOSP.TC ---
Addendum entered and electronically signed by Matt Hawk MD 01/21/25 18:23:
I saw and evaluated the patient. I reviewed the resident�s note and agree with findings and plan as documented in the resident�s note except for changes in my documentation
Original Note:
Today's Communication/Plan
-
Twelve-lead EKG
If no QTc prolongation, patient be can be discharged on sotalol 40 twice daily, Toprol 25 twice daily
Continue to hold lisinopril after discharge
Restart insulin Lantus and metformin
Pepcid
Assessment / Plan
Assessment / Plan
59yo F presenting after recent fall. On arrival, was found to be hypoxic and hypotensive. Chest x-ray showed left lower lobe pneumonia, confirmed on CT. Blood culture positive for gram-positive cocci. Weaned off O2 and pressors. Repeated blood
culture remained negative, however, due to poor A-fib control, discharge was held and patient was transferred to IVU for closer cardiology planning.
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
HLD, DM, COPD on home O2, essential hypertension
# Paroxysmal Afib with RVR
#Chronic HFpEF
#Essential HTN
-Appreciate cardiology-patient converted to sinus rhythm after sotalol load-currently on 40 twice daily and remains in sinus rhythm
-Will check 12-lead EKG-if no QTc prolongation, patient can be discharged with current regimen
-Continue telemetry
-Continue Toprol 25 twice daily
-Continue Eliquis 5 twice daily
# Chronic HFREF
-Echo 09/13/2024-EF 40 to 45%, global hypokinesis with regional variability, mild concentric LVH, mild TR, pulmonary artery pressure 37 mmHg, trivial pericardial effusion
-Continue Toprol 25 twice daily
-Continue to hold lisinopril
# Septic shock most likely in the setting of pneumonia CAP
-Metabolic acidosis resolved
-BP continues to be maintained off pressors
-Repeat blood culture negative�final
-Will need to continue amoxicillin Q6h through 01/26
#Acute hypoxic respiratory failure
-Resolved
-Weaned off O2
-Currently saturating well on room air without any dyspnea
#DM type 2 with neuropathy
-Restart Lantus 16 units and metformin
-Hold NovoLog, resume if Premeal blood glucose more than 180
-Continue Accuchecks
-Carb controlled diet
#Thrombocytopenia
-Resolved
-Likely reactive in the setting of sepsis
-Not on any antiplatelets or heparin products
#Hypokalemia
#Hypomagnesemia
# Mild hyponatremia
-Resolved
-replete as needed
-Started magnesium oxide
#Hyperthyroidism
-Labs checked in hospital showed normal TSH and T4
-On methimazole as outpatient
-Follow-up with transplant nurse as OP
#HLD
Continue Lipitor 40
#vit D deficiency
-Start vitamin D supplement
#COPD on home O2
-Currently not in exacerbation
-Does not require supplemental oxygen and saturating well on room
# Acute kidney injury/Metabolic acidosis POA
-Resolved
# History of chronic steroid use
-Will start Pepcid and to continue after discharge
# History of anxiety/depression
-Decrease sertraline from 100 to 75
DVT ppx
Eliquis
Full code
Anticipated Discharge: Today
Subjective/Interval History
-
Date of Service: January 21, 2025
Patient does not complain of any shortness of breath, chest pain, lightheadedness. Does not feel any strong palpitations. Is able to walk around without any problems.
Objective Data
-
Labs:
Laboratory Results
01/21/25 01/21/25
04:08 07:41
WBC Pending
Hgb Pending
Hct Pending
Plt Count Pending
Sodium 135
Potassium 4.1
Chloride 99
Carbon Dioxide 34 H
BUN 12
Creatinine 0.5 L
Glucose 157 H
Calcium 8.5
Vital Signs:
Vital Signs
Temp Pulse Resp BP Pulse Ox
98 F 70 16 100/67 93
01/21/25 07:23 01/21/25 07:50 01/21/25 07:50 01/21/25 04:02 01/21/25 07:50
I&O
01/20/25 01/21/25 01/22/25
06:59 06:59 06:59
Intake Total 800 / 800 880 / 880
Balance 800 / 800 880 / 880
Review of Systems
-
History Source: Patient
All other systems: Reviewed and negative
Physical Exam
-
General: No Apparent Distress
HEENT: Normocephalic
Respiratory: Clear to Auscultation and Non Labored Respirations; Negative Wheezes or Crackles
Cardiac: Regular Rhythm; Negative Tachycardic
GI: Soft, Nontender and Nondistended
Musculoskeletal: No Clubbing, No Cyanosis and No Edema
Neuro: Awake, Alert, Oriented and AO x 3
Psych: Calm
--- NOTE | 2025-01-21 09:21 | PTCARENOTE ---
Assumed care at 0700. Patient awake and alert. Moist non-productive cough, lungs CTA. NSR HR in the 60's. Lights dimmed call brooke in reach
[2025-01-21 09:35] LABS: Hematocrit 36.4 % (37.0-47.0); Mean Corpuscular Hgb 31.3 pg (27.0-31.0); Mean Platelet Volume 11.2 fL (7.4-10.4); Platelet Count 154 10^3/uL (130-400); Red Blood Cell Count 3.83 10^6/uL (4.20-5.40); Red Cell Dist. Width 17.1 % (11.5-14.5); White Blood Cell Count 5.5 10^3/uL (4.8-10.8)
--- NOTE | 2025-01-21 09:59 | W.PN.UPDATE ---
Addendum entered and electronically signed by Matt Hawk MD 01/21/25 16:16:
I saw and evaluated the patient. I reviewed the resident�s note and agree with findings and plan as documented in the resident�s note except for changes in my documentation
Original Note:
Update Note
Progress Note Update
59yo F with PMHX of HLD, DM, COPD, HTN came with SOB, managed for multilobular strep pneumonia CAP with bacteremia, confirmed on CT. Weaned off O2 on 01/17/25, repeated Bcx remained NTD, due to poor HR control D/C was held and cardiology planning on
additional rate/rhythm control: converted to sinus with Sotalol load.
Seen earlier Late documentation
CVS: S1-S2 normal
Chest: CTA B/L
Abdomen: Soft, NT / Bowel sounds present
Extremities: No edema, normal pulses
#Afib with RVR,H/O paroxysmal Afib
Currently in sinus rhythm
Sotalol load started.
Continue metoprolol XL 25 twice daily, Eliquis 5 mg twice daily
#Pneumonia CAP with bacteremia and septic shock
Lactic acidosis resolved.
Off Pressors now
Blood cultures coming back positive for GPC-likely strep pneumonia
on Amoxicillin till 01/26/[address] chest without loculated pleural effusion
repeated Bcx NTD
#Acute hypoxic failure 2/2 above
Wean off O2
# Acute kidney injury/Metabolic acidosis-Resolved
# Thrombocytopenia-secondary to sepsis-resolved
# Mild hyponatremia-resolved
# Cardiomyopathy / Chronic HFREF
Echo 09/13/2024-EF 40 to 45%, global hypokinesis with regional variability, mild concentric LVH, mild TR, pulmonary artery pressure 37 mmHg, trivial pericardial effusion
Continue BB
Lisinopril on hold, will not resume now
# Diabetes type 2
On Lantus 16 units at night and NovoLog 10 AC as outpatient
Lantus and metformin restarted
NovoLog will be held for discharge and will ask patient to slowly increase the dose starting at 2 units if blood sugar is more than 180 Premeal.
# COPD
On Trelegy Ellipta, Daliresp as outpatient-continue equivalent
Continue levalbuterol
# Vit D Def Replace
# Low normal [id number]
# Hyperlipidemia-continue statin
# Hyperthyroidism-continue methimazole
# History of pericardial effusion
# Depression-continue sertraline
# Chronic back pain on Lyrica and Flexeril as
# Microscopic hematuria-contaminated specimen with a lot of squamous cells.
# GERD-Add Pepcid
# History of colon resection 2018 at [place]
# Smoker- Cessation counselling
# Obesity per BMI
# DVT prophylaxis-Eliquis
# Full code
Follow-up care discussed
Discussed with cardiology
Discussed with the nursing
More than 30 minutes spent in discharge including
Final examination of the patient
Summarizing hospital stay
Instructions for continuing care to all relevant caregivers
Preparation of discharge records, prescriptions, and referral forms
Total time spent (in minutes): 39 min
--- NOTE | 2025-01-21 10:33 | W.PN.ID1 ---
Date of Service
Date of Service: January 21, 2025
Today's Communication
- Continue amoxicillin 1000 mg po q8h through 01/26/25
- Recommend PCV20 vaccine at local pharmacy when fully recovered.
Assessment / Plan
# Invasive pneumococcal pneumonia
# Streptococcus pneumoniae bacteremia
# s/p Severe sepsis
# Leukocytosis resolved
# TIKI resolved
-Repeat blood cultures finalized negative
- s/p 5d ceftriaxone
- Continue amoxicillin 1000 mg po q8h through 01/26/25
- Recommend PCV20 vaccine at local pharmacy when fully recovered.
# Afib
- For sotalolol loading, per Cardiology.
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
Hypertension
COPD
Paroxysmal atrial fibrillation
Hyperthyroidism
HFpEF
Depression/anxiety
Chief Complaint
-: Pneumonia and Bacteremia
Subjective / Review of Systems
afebrile
bp stable
no complaints
Vital Signs / Physical Exam
Vital Signs
Vital Signs
Temp Pulse Resp BP Pulse Ox
98 F 63 16 132/64 93
01/21/25 07:23 01/21/25 10:00 01/21/25 07:50 01/21/25 07:23 01/21/25 07:50
Physical Exam
Constitutional: No Acute Distress
Cardiovascular: Regular Rate and S1/S2; Negative Murmur or Rub
Pulmonary: Clear and Symmetric; Negative Wheezes or Rales
Gastrointestinal: Soft, Non Tender, Non Distended and Normal Bowel Sounds
Skin: Warm and Dry; Negative Rash or Jaundice
Objective Data
Lab Data
Lab Results
01/21/25 09:16
01/21/25 04:08
Estimated Creat Clear 84 ml/min 01/21/25 04:08
Lactic Acid 1.2 mmol/L (0.7-2.0) 01/14/25 04:54
Total Bilirubin 0.7 mg/dl (0.2-1.3) 01/20/25 04:24
AST 14 U/L (14-36) 01/20/25 04:24
ALT 11 U/L (0-35) 01/20/25 04:24
Alkaline Phosphatase 104 U/L (38-126) 01/20/25 04:24
Most recent labs reviewed.
Micro Results:
01/14/25 09:41 Blood Culture - Final
Blood/Venous No Growth - Final Report
01/14/25 09:54 Blood Culture - Final
Blood/Venous No Growth - Final Report
01/13/25 18:35 Blood Culture - Final
Blood/Venous Streptococcus pneumoniae
Gram Stain - Final
01/13/25 18:34 Blood Culture - Final
Blood/Venous Streptococcus pneumoniae
Gram Stain - Final
01/14/25 02:19 Urine Culture - Final
Urine
01/14/25 01:49 Nasal Screen MRSA (PCR) - Final
Nose MRSA not detected - performed by PCR methodology.
01/13/25 18:13 Influenza Types A & B (TICO) - Final
Nasal Swab Negative for Influenza A & B, NAAT
Negative results must be combined with clinical observations
and patient history.
Nucleic Acid Amplification test (NAAT)performed on the
[employer] platform.
01/13/25 CXR: Left lower lobe pneumonia. Probable associated pleural effusion, possibly loculated.
01/13/[address]: No acute intracranial abnormality noted. No acute intracranial hemorrhage. No extra axial collection. No skull fracture. Acute superimposed on chronic maxillary sinusitis.
[2025-01-21] MEDS: MAGNESIUM OXIDE 500 MG PO (10:53)
[2025-01-21 11:25] VITALS: BP 93/61
--- NOTE | 2025-01-21 12:39 | W.PN.CARDCBS ---
Addendum entered and electronically signed by Clifford Vizcaino MD 01/21/25 13:10:
59-year-old woman admitted with mechanical fall bacteremia related to pneumonia and possible UTI, history of EF of 40 to 45%, history of PVI and flutter ablation, now with A-fib and started on low-dose sotalol, sotalol decreased to 40 mg twice daily
related to QTc
PMH: PAF status post PVI, chronic HFpEF, hypertension, hyperlipidemia, type 2 diabetes, depression anxiety, ongoing smoker
Current meds: Apixaban 5 mg twice daily, atorvastatin 40 mg a day, Symbicort, Tapazole 5 mg a day, Lyrica 150 mg twice daily, Daliresp, sertraline 100 mg a day, insulin, metoprolol ER 25 twice daily, sotalol 40 every 12 and magnesium
132/64, pulse 63, respiratory 20, afebrile, sats 93%, weight is 67.9 kg, if accurate down 3.7 kg,
Hemoglobin is 12, white count is 5.5, platelets are 154, BUN and creatinine are 12 and 0.9, potassium 4.1, troponin undetectable
ECG: QTc is 472, borderline low voltage, consider anterolateral ischemia, mag is 1.6, magnesium added
Nondiagnostic stress echo 2018, dobutamine may be ordered, appears never to have been performed
Telemetry: No VT
Impression:
See below
Plan:
She feels well.
Okay for discharge, QTc interval is acceptable on sotalol 40 mg twice daily.
Recommended cardiac medications at discharge:
Apixaban 5 mg twice daily
Atorvastatin 40 mg a day
Metoprolol ER 25 mg twice daily
Sotalol 40 mg twice daily
Magnesium oxide 500 mg a day
If possible, consider decrease of sertraline given potential for QT prolongation with sotalol
Patient has cardiology follow-up arranged
Smoking cessation encouraged
Original Note:
Today's Communication / Plan
-
-QTc stable on Sotalol 40 mg bid
-ok for d/c from CV standpoint
-f/u arranged.
Impression / Plan
-
Primary Keno Writer / Runner: Dr. Hartmann
Impression:
Presentation 01/13/2025 with mechanical fall, weakness, extreme fatigue, shortness of breath
Sepsis with Leukocytosis, hypotension initially requiring pressors, TIKI, tachycardia
Positive blood culture with gram-positive cocci in pairs and chains
Left lower lobe pneumonia with left pleural effusion
Atrial fibrillation with rapid ventricular response
TIKI
Concern for UTI
Thrombocytopenia, platelets 108,000
Chronic HFpEF, possible acute exacerbation, euvolemic now
Cardiomyopathy EF 40-45% by echo 08/2024
PAF
history of PVI/flutter ablation in 2022
Status post cardioversion 09/28/2024
Chronic OAC with eliquis
HTN
HLD
DM2
Hyperthyroidism, Low TSH with compensated free T4 09/13/24
Depression/anxiety
Smoker
ECHO 02/14/24: EF 45 to 50%, abnormal paradoxical septal motion consistent with IVCD, no significant valvular disease
ECHO 09/13/24: EF 40 to 45%, global hypokinesis with regional variability, mild concentric LVH, mild TR, PAP 37 mmHg, trivial pericardial effusion, no significant change compared to prior
Echo 01/15/2025: EF 40%, global hypokinesis with regional variability, mild concentric LVH, trace TR, PAP 20 to 25 mmHg, trivial pericardial effusion, no significant change compared to prior
Plan:
-Continue treatment of bacteremia/pneumonia per primary service/infectious disease
-Return to sinus rhythm 01/18/2025, initiated on sotalol 80 mg twice daily. QT/QTc initially 420/487 ms however this has prolonged following 2 doses at 80 mg twice daily, to 512msc. Repeat EKG afternoon 01/19/2025 noted improved but increased QT
interval. P.m. dose held. Started sotalol 40 mg twice daily 01/20/2025. EKG today: NSR, QTc 472msec. Going forward, if QT/QTc remains greater than 500, may need further reduction or discontinuation. Continue Toprol 25 mg twice daily
-telemetry personally reviewed: NSR 58-67 bpm
-Continue anticoagulation with Eliquis
-TSH/free T4 normal this admission, on methimazole as an outpatient
-Significant electrolyte abnormality noted with hypokalemia hypomagnesemia, replete goal potassium greater than 4, magnesium greater than 2, this is improving
-Echo 01/15 with results as above, EF stable at 40%
-GDMT for cardiomyopathy as blood pressure tolerates. Low-dose outpatient lisinopril presently on hold, BP remains lower 100/67.. On Toprol 25 mg bid.
-ok for discharge from CV standpoint. Has f/u scheduled 02/07/2025 with Zoila Cee PA-C at [facility]
-Discussed with nursing
Progress Note - Keno Writer / Runner
Subjective
Date of Service: January 21, 2025
QTc improved on lower dose Sotalol
remains in NSR
feels well, no SOB, CP
hopeful for discharge
Objective
Labs:
01/21/25 09:16
01/21/25 04:08
Labs
Hgb 12.0 g/dL (12.0-16.0) 01/21/25 09:16
Hct 36.4 % (37.0-47.0) L 01/21/25 09:16
Plt Count 154 10^3/uL (130-400) 01/21/25 09:16
Sodium 135 mmol/L (135-145) 01/21/25 04:08
Potassium 4.1 mmol/L (3.5-5.1) 01/21/25 04:08
BUN 12 mg/dl (7-17) 01/21/25 04:08
Creatinine 0.5 mg/dL (0.6-1.0) L 01/21/25 04:08
Glucose 157 mg/dl (70-99) H 01/21/25 04:08
Vital Signs and I&O:
Vital Signs
Temp Pulse Resp BP Pulse Ox
98.2 F 63 20 132/64 93
01/21/25 11:26 01/21/25 10:00 01/21/25 11:26 01/21/25 07:23 01/21/25 11:26
Vital Signs
Temp Pulse Resp BP Pulse Ox
98.2 F 63 20 132/64 93
01/21/25 11:26 01/21/25 10:00 01/21/25 11:26 01/21/25 07:23 01/21/25 11:26
Intake & Output
01/19/25 01/20/25 01/21/25 01/22/25
06:59 06:59 06:59 06:59
Intake Total 520 / 520 800 / 800 880 / 880
Balance 520 / 520 800 / 800 880 / 880
Physical Exam
Physical Exam
GEN: No distress, awake, Ox3
HEENT: supple, anicteric, mmm
LUNGS: decreased at bases B/L no wheezes/rales
CV: Reg, S1/S2, no murmur
ABD: soft, BS+, NT/ND
EXT: No edema
NEURO: Gross non-focal
SKIN: No rash
[2025-01-21] MEDS: NOVOLOG FLEXPEN-MODERATE RESISTANCE 5 UNITS SC (12:43)
[2025-01-21 12:46] LABS: Glucose - Point of Care 255 mg/dl (70-99)
--- NOTE | 2025-01-21 13:27 | VNURNOTE ---
Chart reviewed. VN spoke with patient. Discussed [facility] nurse[facility]therapy, visits, schedule and homebound status. 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 She is planning on resuming
that after discharge. She will only be home 1 day/week. Explained homebound criteria to patient, she verbalized understanding.
Patient will not be homebound/will not meet criteria.
[facility] intake updated, Non-admit.
[2025-01-21 15:00] VITALS: BP 118/76
[2025-01-21] MEDS: AFLURIA (36 mos+) 2024-2025 FORMULA 0.5 ML IM (15:45)
--- NOTE | 2025-01-21 16:55 | PTCARENOTE ---
Patient discharged to home, IV and telemetry removed. Discharge teaching completed, patient verbalized understanding.
--- NOTE | 2025-01-21 18:30 | W.DCSUMMARY ---
Discharge Summary
Discharge Data
Date of Admission: 01/13/25
Date of Discharge: 01/21/25
-
Pending Results: No
Hospital Course
Patient is a 59yo F who presented to the ED after a fall episode. She had been feeling weak and coughing since few days prior to admission. On arrival, patient was found to be hypotensive and hypoxic. Initial labs suggested leukocytosis (WBC=30),
lactic acidosis and elevated creatinine (3, baseline=1). CT head was negative for any acute pathology and spinal CT did not show any dislocation or fractures. However, chest x-ray suggested left lower lobe pneumonia. COVID and flu were negative.
Patient was started on pressors due to inability to maintain BP and received bolus IV fluid. Blood cultures were sent and patient was started on Zithromax, ceftriaxone, and vancomycin. Patient was admitted for further evaluation.
Problem list:
1. Septic shock most likely due to lower lobe pneumonia
She was able to be weaned off pressors on second day of admission and Toprol was restarted. Blood culture came back positive for gram-positive cocci. ID was consulted. Zithromax and vancomycin were DC'd. Patient received monotherapy with
ceftriaxone for 5 days and was then switched to amoxicillin 1 g q8h. Lactic acidosis resolved and repeat blood cultures remained negative.
2. Paroxysmal atrial fibrillation with RVR
Patient was started on Cardizem drip and switched to oral Cardizem after BP improved. Echo was done which showed an EF of 40%. Toprol was restarted and uptitrated to 25 twice daily. Patient was noted to have hypomagnesia and hypokalemia. After
electrolytes were repleted, she was started on sotalol 80 twice daily. Patient cardioverted to sinus rhythm after sotalol .Serial EKG was done to monitor QTc. Per cardiology, sotalol was down titrated to 40 twice daily. Patient remained in sinus
rhythm with normal QTc on sotalol 40 twice daily and Toprol 25 twice daily. Also, patient was started on magnesium oxide due to persistent hypomagnesia.
Eliquis was continued throughout stay.
3. Acute hypoxic respiratory failure
Patient was able to be weaned off oxygen and has been saturating well on room air.
4. Acute kidney injury
Lisinopril and metformin were held. Kidney function improved following IV fluid therapy and treatment of underlying sepsis. Patient's kidney function returned to baseline prior to discharge.
5. Reactive thrombocytopenia
Most likely in the setting of sepsis. Patient's platelet count returned to normal prior to discharge.
New changes in medication include: Toprol 25 twice daily (previously once daily), sotalol 40 twice daily, Pepcid, Zoloft 75 (previously 100), amoxicillin 1 g 3 times daily to be continued through 01/26.
Patient should continue 16 units Lantus and metformin after discharge. NovoLog held and should restart with 2 units only if Premeal glucose more than 180.
Prednisone, lisinopril and diltiazem were stopped per cardiology.
Patient to follow-up as outpatient with cardiology on 02/07.
Discharge Plan
-
Patient Disposition: Home (Routine Discharge)
Discharge Diagnosis/Procedures: Pneumonia
Sepsis-strep pneumonia
Atrial fibrillation with rapid ventricular rate
Acute kidney injury-resolved
Cardiomyopathy
Chronic heart failure
Diabetes
COPD
Vitamin D deficiency
Hypothyroidism
Depression
Condition: Good
Diet: 2 Gram Sodium and Restrict fluids to 64 oz
Activity: As tolerated
Driving Restrictions: As prior to admission
Others Tests: Chest X ray in 6 weeks
Other Services: VN
Specialty Instructions: Weigh Daily- Call MD for wt gain/loss 3 lbs overnight/5 lbs in 1 week
Activity Restrictions/Additional Instructions:
No Smoking
Recommend PCV20 vaccine at local pharmacy when fully recovered.
Referrals:
[facility] [Outside]
Hemant David DO [Family Provider] - in less than 1 week
()
Zoila Cee PA-C [Specified Professional Personl] - 02/07/25 2:00 pm (You have a cardiology appointment with Dr. Denton and GISELLE Cummings in [place] office. Please call with questions. )
Additional Discharge Medication Instructions: Hold Novolog before meals. Check Sugars if you see sugars over 180 before meals start Novolog 2 units and slowly increase to your previous dose ( 10 units) as sugars are up.
Dose of Zoloft reduced to 75 mg.
Stop Lisinopril.
Prescriptions:
New
metoprolol succinate 25 mg Tablet Extended Release 24 Hr
25 mg PO BID Qty: 60 0RF
ergocalciferol (vitamin D2) 1,250 mcg (50,000 unit) Capsule
50,000 unit PO Q7D Qty: 6 0RF
amoxicillin 500 mg Capsule
1,000 mg PO Q8 Qty: 30 0RF
sotalol 80 mg Tablet
40 mg PO Q12H Qty: 60 0RF
sertraline [Zoloft] 50 mg tablet
75 mg PO DAILY Qty: 60 0RF
magnesium oxide 500 mg magnesium Tablet
500 mg PO DAILY Qty: 30 0RF
famotidine [Pepcid] 20 mg tablet
20 mg PO DAILY Qty: 30 0RF
Continued
metformin 500 MG tablet
1,000 mg PO BID
methimazole 5 mg Tablet
5 mg PO DAILY
atorvastatin 40 mg Tablet
40 mg PO DAILY
levalbuterol tartrate 45 mcg/actuation Hfa Aerosol Inhaler
2 puff INHALATION R Q4HPRN PRN (Reason: shortness of breath )
pregabalin 150 mg Capsule
150 mg PO BID
roflumilast [Daliresp] 500 MCG tablet
500 mcg PO DAILY
Eliquis 5 mg tablet
5 mg PO BID
levalbuterol HCl 0.63 mg/3 mL solution for nebulization
0.63 mg inhalation R TIDPRN PRN (Reason: wheezing/SOB ) Qty: 90 0RF
insulin glargine [Lantus Solostar U-100 Insulin] 100 unit/mL (3 mL) insulin pen
16 unit SC HS
Trelegy Ellipta 100-62.5-25 mcg Blister With Device
1 inh INHALATION DAILY
loratadine 10 mg Tablet
10 mg PO DAILY 14 Days Qty: 14 0RF
Held
insulin aspart U-100 [Novolog FlexPen U-100 Insulin] 100 unit/mL (3 mL) insulin pen
10 unit SC AC
Hold Instructions: Resume on 01/29/25. until your sugars before meals are above 180
Discontinued
sertraline 100 MG tablet
100 mg PO DAILY
diltiazem HCl 240 mg capsule,extended release 24hr
240 mg PO BID
lisinopril 2.5 mg Tablet
2.5 mg PO DAILY 30 Days Qty: 30 0RF
metoprolol succinate 25 mg Tablet Extended Release 24 Hr
25 mg PO QPM
Flexeril
1 tab PO DAILY
Patient Comments:
unknown mg
prednisone 10 mg tablet
See Rx Instructions .ROUTE .COMPLEX
Rx Instructions:
Take By Mouth:
40 mg daily x3 days, 30 mg daily x3 days,
20 mg daily x3 days, 10 mg daily x3 days.
Discharge Orders:
Discharge Patient (As Directed); Ordered 01/21/25
Ordered By: Neptali Hampton
Care Plan Goals
Care Plan Goals:
Problem: Readiness for enhanced knowledge related to diagnosis and treatment plan
Goal: Understand your diagnosis and treatment plan needs, including medications if applicable.
Instructions: Know your diagnosis, underlying causes and treatment plan options, including medications if applicable. Consult with your health care team to learn about your diagnosis and treatment plan, including medications if applicable.
Discharge Date and Time
Discharge Date/Time: 01/21/25 17:57
Print Language: SWEDISH
== END 2025-01-21 17:57 | disposition home or self-care (01) | DRG 871 ==
LOC: IVU 21:33
PROVIDERS: Emergency Medicine; Internal Medicine; Physician Assistant; Registered Nurse; ADMITTING PHYSICIAN Internal Medicine; ATTENDING PHYSICIAN Hospitalist; CONSULT PHYSICIAN Internal Medicine Infectious Disease; CONSULT PHYSICIAN Nuclear Medicine Nuclear Cardiology; EMERGENCY PHYSICIAN Student in an Organized Health Care Education/Training Program; FAMILY PHYSICIAN Family Medicine
PROC: 3E02340 Introduction of Influenza Vaccine into Muscle, Percutaneous Approach (ICD-10-PCS; 2025-01-21)
DX: A40.3 Sepsis due to Streptococcus pneumoniae (principal); J13 Pneumonia due to Streptococcus pneumoniae; R65.21 Severe sepsis with septic shock; J96.01 Acute respiratory failure with hypoxia; J44.0 Chronic obstructive pulmonary disease with (acute) lower respiratory infection; N17.9 Acute kidney failure, unspecified; I42.9 Cardiomyopathy, unspecified; I50.22 Chronic systolic (congestive) heart failure; E87.1 Hypo-osmolality and hyponatremia; I48.0 Paroxysmal atrial fibrillation; I11.0 Hypertensive heart disease with heart failure; E11.40 Type 2 diabetes mellitus with diabetic neuropathy, unspecified; D69.59 Other secondary thrombocytopenia; F32.A Depression, unspecified; F41.9 Anxiety disorder, unspecified; K21.9 Gastro-esophageal reflux disease without esophagitis; E05.90 Thyrotoxicosis, unspecified without thyrotoxic crisis or storm; E66.9 Obesity, unspecified; E53.8 Deficiency of other specified B group vitamins; E55.9 Vitamin D deficiency, unspecified; E78.00 Pure hypercholesterolemia, unspecified; E86.0 Dehydration; E87.6 Hypokalemia; F17.200 Nicotine dependence, unspecified, uncomplicated; Z23 Encounter for immunization; S09.90XA Unspecified injury of head, initial encounter; Z68.28 Body mass index [BMI] 28.0-28.9, adult; W06.XXXA Fall from bed, initial encounter; Z96.642 Presence of left artificial hip joint; Z79.899 Other long term (current) drug therapy; Z79.84 Long term (current) use of oral hypoglycemic drugs; Z79.4 Long term (current) use of insulin; Z79.01 Long term (current) use of anticoagulants; Z11.52 Encounter for screening for COVID-19
CPT/HCPCS: 70450; 71046; 71250; 72125; 80048; 80053; 81003; 81015; 82306; 82570; 82607; 82962; 83605; 83735; 84100; 84132; 84300; 84439; 84443; 84484; 85025; 85027; 87040; 87077; 87086; 87186; 87205; 87502; 87641; 87811; 90686; 93005; 93306; 94640; 96365; 96366; 96375; 97163; 97530; 99285; G0008

== ENCOUNTER → 2025-02-21 07:52 | Outpatient (REF) | payer BC, SELFPAY | LOC: RAD 07:52 | PROVIDERS: ATTENDING PHYSICIAN Family Medicine; REFERRING PHYSICIAN Physician Assistant | DX: E04.2 Nontoxic multinodular goiter (principal); I65.29 Occlusion and stenosis of unspecified carotid artery; J18.9 Pneumonia, unspecified organism | CPT/HCPCS: 71046; 76536; 93880 ==

== ENCOUNTER → 2025-09-02 09:10 | Outpatient (REF) | payer BC, SELFPAY | LOC: RCS 09:10 | PROVIDERS: ATTENDING PHYSICIAN Nuclear Medicine Nuclear Cardiology; FAMILY PHYSICIAN Family Medicine | DX: I48.0 Paroxysmal atrial fibrillation (principal); I50.32 Chronic diastolic (congestive) heart failure; I42.9 Cardiomyopathy, unspecified | CPT/HCPCS: 93306 ==